=== PATIENT | female | born 1940 | race Caucasian/White ===

== ENCOUNTER 2023-12-24 10:22 | Inpatient (IN) ==
--- NOTE | 2023-12-24 11:26 | CT Scan Report ---
CT OF THE CERVICAL SPINE WITHOUT CONTRAST CLINICAL HISTORY: Fall. COMPARISON STUDY: No previous studies for comparison. TECHNIQUE: Helical axial images of the cervical spine were obtained without IV contrast. Sagittal a nd coronal reconstructions were viewed. Automated exposure control was utilized for the study. A do se lowering technique was utilized adhering to the principles of ALARA. FINDINGS: This exam is moderately compromised by motion artifact Alignment of the cervical spine is a natomic. Vertebral body heights are maintained. No acute cervical spine fracture or subluxation is pr esent. There is no prevertebral edema. Facet joints are intact. There is moderate multilevel facet ar throsis and disc space narrowing and osteophytosis within cervical spine. Right lobe thyroid goiter is incidentally noted. IMPRESSION: No acute cervical spine fracture or subluxation. Exam moderately compromised by motion ar tifact. ACT 112: Negative or not required by law. Electronically signed by: Ced Wills M.D. 12/24/2023 11:25 AM
--- NOTE | 2023-12-24 11:29 | CT Scan Report ---
CT SCAN OF THE BRAIN WITHOUT IV CONTRAST CLINICAL HISTORY: Fall. COMPARISON STUDY: No priors. TECHNIQUE: Unenhanced axial CT scan of the brain is performed from the vertex to the skull base. A do se lowering technique was utilized adhering to the principles of ALARA. FINDINGS: Brain parenchyma: There is age-related involutional change noting mild subcortical and periventricula r microangiopathic disease. There is no hemorrhage, mass effect, or evidence of acute territorial isc hemia by CT criteria. Brewster-white matter differentiation is preserved. No extra-axial fluid collection is seen. Ventricles, sulci, cisterns: Prominent secondary to involutional change. Intracranial vasculature: There is atherosclerotic calcification of the cavernous carotid arteries. Calvarium: Unremarkable. Soft tissues: There is a 7 mm nodule in the left parotid gland. Sinuses and mastoids: The visualized paranasal sinuses are clear. The mastoid air cells are well pneu matized. Orbits: The bony orbits are grossly intact. There are bilateral ocular lens implants. IMPRESSION: There is no hemorrhage, mass effect, or evidence of acute territorial ischemia by CT diego sparks. ACT 112: Negative or not required by law. Electronically signed by: Isaias Eckert M.D. 12/24/2023 11:27 AM
--- NOTE | 2023-12-24 11:59 | XRay Report ---
XR hand LT min 3V routine CLINICAL HISTORY: fall, left hand pain TECHNIQUE: 3 views of the left hand were obtained. Comparison: None available at the time of this dictation. FINDINGS: Postsurgical changes of wrist fixation hardware is seen. Old fracture of the ulnar styloid noted. The re is no evidence of an acute fracture. Degenerative changes are seen most prominently in the third d igit proximal interphalangeal joint. No soft tissue abnormality is seen. IMPRESSION: Degenerative changes are seen without evidence of acute abnormality. ACT 112: Negative or not required by law. Electronically signed by: Cristino Kapadia M.D. 12/24/2023 11:57 AM
--- NOTE | 2023-12-24 12:12 | XRay Report ---
XR hip LT 2V w pelvis CLINICAL HISTORY: fall, left hip pain COMPARISON: None FINDINGS: Postoperative findings within the lumbosacral spine are incidentally noted. The sacroiliac joints and symphysis pubis are intact. There are no fractures within the pelvis or hips. IMPRESSION: No fractures within the pelvis or hips. ACT 112: Negative or not required by law. Electronically signed by: Ced Wills M.D. 12/24/2023 12:11 PM
--- NOTE | 2023-12-24 13:29 | Emergency Department Note ---
ED Visit Note I was consulted by the Advanced Practice Provider, Griselda Montoya NP. I personally made/approved the management plan and take responsibility for the patient management. I performed a substantive portion of the visit. This includes the aspects of: -MDM -I independently interpreted the following studies: Head CT: A noncontrast CT scan of the head was performed and was negative for tumor, fracture, intracranial hemorrhage, or other acute pathology. .
[2023-12-24 14:15] LABS: Basophils # (auto) 0.06 K/uL (0.00-0.20); Basophils % (auto) 0.7 %; Eosinophils # (auto) 0.57 K/uL (0.00-0.50); Eosinophils % (auto) 6.6 %; Hemoglobin 13.6 g/dl (12.0-16.0); Immature Granulocytes # (auto) 0.05 K/uL (0.01-0.20); Immature Granulocytes % (auto) 0.6 %; Lymphocytes % (auto) 16.2 %; Mean Corpuscular Hemoglobin 29.6 pg (25.0-34.0); Mean Corpuscular Hgb Conc 30.9 g/dL (32.0-36.0); Mean Corpuscular Volume 95.9 fL (80.0-100.0); Monocytes # (auto) 0.64 K/uL (0.11-0.59); Monocytes % (auto) 7.4 %; Neutrophils % (auto) 68.5 %; Platelet Count 299 K/uL (130-400); RDW Coefficient of Variation 13.7 % (11.5-14.5); RDW Standard Deviation 48.7 fL (36.4-46.3); Red Blood Count 4.59 M/uL (4.20-5.40); White Blood Count 8.62 K/ul (4.8-10.8)
[2023-12-24 14:36] LABS: Albumin Globulin Ratio 1.6 (0.9-2); Albumin Level 3.9 gm/dl (3.4-5.0); BUN Creatinine Ratio 20.8 (10-20); Bilirubin,Total 0.4 mg/dl (0.2-1.0); Calcium 9.9 mg/dl (8.6-10.3); Creatinine Clr Calc Pharmacy 26.9 ml/min; Est GFR (African American) 46.1 ml/min; Est GFR (Non-African American) 39.7 ml/min; Globulin 2.5 gm/dl (2.5-4.0); Potassium 4.4 mmol/L (3.5-5.1); Total Protein 6.4 gm/dl (6.0-8.3)
--- NOTE | 2023-12-24 15:17 | History & Physical Report ---
Date of Service December 24, 2023 Assessment & Plan (1) New onset a-fib: (2) CAD (coronary artery disease): (3) Depression: (4) HTN (hypertension): (5) HLD (hyperlipidemia): (6) Bipolar 2 disorder: Plan Ms. Clark is an 83 year old female that presents to the [facility] after experiencing a ground level fall that occurred today at [facility]. She has been in rate controlled atrial fibrillation since she has been here and does not have a history of atrial fibrillation. She has complaints of being generally weak and lethargic. Unsure if patient had lightheadedness or dizziness prior to her fall. Patient is not a great historian. I s/w daughter Bianca at [phone] who is out of state working and the last time she saw her during the last week of October 2023. Per daughter she has had issues in the past with her heart rate being low, but has never been diagnosed with atrial fibrillation. She has a PMH that includes CAD s/p stent placement x2 done at [facility] in [place] in 2007, CVA, Lewy Body dementia, HTN, hypothyroidism. Lengthy discussion held with patients daughter about benefits vs risks of being on anticoagulation and she has opted to continue with treatment with a Heparin infusion. Her CHADs VASc is a 7. At baseline, she is able to get dressed with assistance and is able to independently feed herself but requires all of her needs to be anticipated and met. Patient will be admitted for further evaluation and management of her new onset atrial fibrillation and fall/generalized weakness. We will obtain an ECHO, TSH, UA, Heparin gtt, Cards consultation, PT/OT and case management consult to assist with placement at SNF. New onset atrial fibrillation: weakness: fall: acute CHADs vasc [address] negative Hip/Pelvis X-ray negative Troponin 14--> 17.7; repeat @ 2200 Mg+ 2.2, TSH 2.482 ECG irregular; AF ECHO ordered No leukocytosis UA pending Administer NSS @ 80mL/hour x 2 bags and reassess Heparin gtt standard no bolus ordered PT/OT ordered Bradycardia: Chronic Per daughter she has had bradycardia (50's) since her AMI in 2007. Appears pt was on Metoprolol at one point, but not on current med list Cards consult ECHO ordered Orthostatic BP ordered [place]: Acute serum creatinine 1.25; unsure of baseline fluid challenge and recheck BMP in AM CAD: Chronic AMI s/p stent placement x1 in 2007 at [facility] Not on any anticoagulation Takes baby ASA; continue Lewy Body Dementia: Chronic Takes Sinemet; continue Takes donepezil;continue Takes Seroquel; continue FAST score: up to and including all of 6 Some per daughter HTN: Chronic Takes losartan;continue HLD: Chronic Takes Bipolar Disorder: Chronic Takes [place]; continue check lithium levels Takes duloxetine;continue Hypothyroidism: Chronic Takes levothyroxine;continue TSH today in ED 2.482 OAB: Chronic Takes oxybutynin;cont Disposition: PCP: Dr. Gonzalez Code Status: Full Code VTE Prophylaxis: Heparin gtt I spent a total of 87 minutes coordinating, documenting, and providing care for this patient excluding time spent in the performance of separately billed services. All of the aforementioned completed while collaborating with the assigned attending physician for a full treatment plan. Please see their addendum for further details. History of Present Illness Chief Complaint: ground level fall Primary Care Provider: Griselda Gonzalez Ms. Clark is an 83 year old female that presents to the [facility] after experiencing a ground level fall that occurred today at [facility]. She has been in atrial fibrillation since she has been here and does not have a history of atrial fibrillation. She has complaints of being generally weak and lethargic. Unsure if patient had lightheadedness or dizziness prior to her fall. Patient is not a great historian. I spoke with patients daughter on the phone; Bianca at [phone] who states that she is out of state working and the last time she saw her during the last week of October 2023. She has been at [facility] for several years. Area office of aging suggested SNF more recently but daughter has not had success in moving forward with placement. Per daughter she has had issues in the past with her heart rate being low, but has never been diagnosed with atrial fibrillation. She has a PMH that includes CAD s/p stent placement x2 done at [facility] in [place] in 2007, CVA, Lewy Body dementia, HTN, hypothyroidism. Discussed the patient risk factors of heart attack and stroke without being on blood thinning medications. Discussed risk of someone with dementia being on anticoagulation falling and having a bleed. Lengthy discussion held with patients daughter about benefits vs risks of being on anticoagulation and she has opted to continue with treatment with a Heparin infusion. Her CHADs VASc is a 7. At baseline, she is able to get dressed with assistance and is able to independently feed herself but requires all of her needs to be anticipated and met. Patient will be admitted for further evaluation and management of her new onset atrial fibrillation and fall/generalized weakness. We will obtain an ECHO, TSH, UA, Heparin gtt, Cards consultation, PT/OT and case management consult to assist with placement at SNF. Please see A/P for more details. Allergies Allergy/AdvReac Type Severity Reaction Status Date / Time ampicillin Allergy Intermediate HIVES Verified 09/26/15 10:09 niacin Allergy Intermediate HIVES Verified 09/26/15 10:09 Penicillins Allergy Intermediate RASH Verified 09/26/15 10:09 procainamide Allergy Intermediate RASH Verified 09/26/15 10:09 codeine AdvReac Intermediate PROJECTILE Verified 09/26/15 10:09 VOMITING alendronate sodium AdvReac Mild NAUSEA AND Verified 09/26/15 10:09 VOMITING celecoxib AdvReac Mild NAUSEA AND Verified 09/26/15 10:09 VOMITING morphine AdvReac Mild VOMITING Verified 09/26/15 10:09 Home Medications Medication Instructions Recorded Confirmed Type ASPIRIN (ASPIRIN EC) 81 mg PO QAM ##0 09/10/15 12/24/23 History Acetaminophen Tab (TYLENOL) 650 mg PO BID #0 tabs 09/10/15 12/24/23 History Calcium/Vitamin D (Os-Phil 500 Plus 1 tab PO QAM #0 tabs 09/10/15 12/24/23 History D) Esomeprazole Magnesium (Nexium) 40 mg PO QAM #0 caps 09/10/15 12/24/23 History MECLIZINE HCL 2 tab PO TID PRN Dizziness or 09/10/15 12/24/23 History Vertigo 10 days #60 tabs Nitroglycerin (Nitrostat) 0.4 mg UT PRN #0 BTLS 09/10/15 12/24/23 History Ropinirole (Requip) 0.25 mg PO TID #0 tabs 09/10/15 12/24/23 History Sertraline (Zoloft) 25 mg PO HS #0 tabs 09/10/15 12/24/23 History atorvastatin 80 mg tablet 80 mg PO HS #0 tabs 09/10/15 12/24/23 History carbidopa 25 mg-levodopa 100 mg 1 tab PO TID #0 tabs 09/10/15 12/24/23 History tablet donepezil 5 mg tablet 5 mg PO QAM #0 tabs 09/10/15 12/24/23 History levothyroxine 75 mcg tablet 1 tab PO QAM 90 days #90 tabs 09/10/15 12/24/23 History Ferrous Sulfate 325 mg PO BIDM 30 days #0 tabs 10/08/15 12/24/23 Rx albuterol sulfate 90 mcg/actuation 1 puff inhalation DIRECTED PRN 12/24/23 12/24/23 History aerosol inhaler (Ventolin HFA) Other diclofenac sodium 1 % topical gel 1 ea topical DIRECTED 12/24/23 12/24/23 History duloxetine 60 mg capsule,delayed 60 mg PO DAILY 12/24/23 12/24/23 History release famotidine 20 mg tablet 20 mg PO DAILY 12/24/23 12/24/23 History gabapentin 300 mg capsule 300 mg PO DIRECTED 12/24/23 12/24/23 History lithium carbonate 300 mg 300 mg PO DAILY 12/24/23 12/24/23 History tablet,extended release losartan 25 mg tablet 25 mg PO DAILY 12/24/23 12/24/23 History oxybutynin chloride 5 mg tablet 5 mg PO BID 12/24/23 12/24/23 History quetiapine 200 mg tablet 200 mg PO DIRECTED 12/24/23 12/24/23 History Past Med/Surg History Problem List New onset a-fib (Acute) Hypothyroidism (Chronic) Depression (Chronic) GERD (gastroesophageal reflux disease) (Chronic) Parkinsons disease (Chronic) CAD (coronary artery disease) (Chronic) SANJEEV (obstructive sleep apnea) (Chronic) HTN (hypertension) (Chronic) HLD (hyperlipidemia) (Chronic) Bipolar 2 disorder (Chronic) History of PTCA (Chronic) H/O colonoscopy (Chronic) H/O knee surgery (Chronic) History of carpal tunnel surgery (Chronic) H/O: (Chronic) History of thyroidectomy, subtotal (Chronic) H/O esophagogastroduodenoscopy (Chronic) Medical History AMI (acute myocardial infarction) Lumbar stenosis with neurogenic claudication Surgical History History of cataract surgery Stented coronary artery Social History Smoking Status: Never smoker Hx Alcohol Use: No Hx Substance Use: No Preferred Language: Bhutanese Communication Ability: Effective 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 Hong's addendum for physical examination findings Results & Data Results & Data Vital Signs (Past 12 Hours) Vital Signs Temp Pulse Pulse Resp BP BP Pulse Ox 12/24/23 14:18 67 12/24/23 14:00 50 L 20 145/72 H 97 12/24/23 12:29 16 94 12/24/23 10:45 54 L 16 96 12/24/23 10:29 36.9 C 54 L 18 169/62 H 96 12/24/23 10:27 61 O2 Del Method 12/24/23 14:18 12/24/23 14:00 Room Air 12/24/23 12:29 Room Air 12/24/23 10:45 Room Air 12/24/23 10:29 Room Air 12/24/23 10:27 Laboratory Results Short CBC 12/24/23 Range/Units 14:00 WBC 8.62 (4.8-10.8) K/ul Hgb 13.6 (12.0-16.0) g/dl Hct 44.0 (37.0-47.0) % Plt Count 299 (130-400) K/uL BMP 12/24/23 14:00 Sodium 138 Potassium 4.4 Chloride 106 Carbon Dioxide 26 BUN 26 H Creatinine 1.25 H Glucose 92 Calcium 9.9 Liver Function 12/24/23 Range/Units 14:00 Total Bilirubin 0.4 (0.2-1.0) mg/dl AST 14 (13-39) U/L ALT 3 L (7-52) U/L Alkaline Phosphatase 119 H (34-104) U/L Albumin 3.9 (3.4-5.0) gm/dl Diagnostic Findings Cervical Spine CT 12/24/23 10:45 CT OF THE CERVICAL SPINE WITHOUT CONTRAST CLINICAL HISTORY: Fall. COMPARISON STUDY: No previous studies for comparison. TECHNIQUE: Helical axial images of the cervical spine were obtained without IV contrast. Sagittal and coronal reconstructions were viewed. Automated exposure control was utilized for the study. A dose lowering technique was utilized adhering to the principles of ALARA. FINDINGS: This exam is moderately compromised by motion artifact Alignment of the cervical spine is anatomic. Vertebral body heights are maintained. No acute cervical spine fracture or subluxation is present. There is no prevertebral edema. Facet joints are intact. There is moderate multilevel facet arthrosis and disc space narrowing and osteophytosis within cervical spine. Right lobe thyroid goiter is incidentally noted. IMPRESSION: No acute cervical spine fracture or subluxation. Exam moderately compromised by motion artifact. ACT 112: Negative or not required by law. Electronically signed by: Ced Wills M.D. 12/24/2023 11:25 AM Hand X-Ray 12/24/23 10:45 XR hand LT min 3V routine CLINICAL HISTORY: fall, left hand pain TECHNIQUE: 3 views of the left hand were obtained. Comparison: None available at the time of this dictation. FINDINGS: Postsurgical changes of wrist fixation hardware is seen. Old fracture of the ulnar styloid noted. There is no evidence of an acute fracture. Degenerative changes are seen most prominently in the third digit proximal interphalangeal joint. No soft tissue abnormality is seen. IMPRESSION: Degenerative changes are seen without evidence of acute abnormality. ACT 112: Negative or not required by law. Electronically signed by: Cristino Kapadia M.D. 12/24/2023 11:[address] 12/24/23 10:45 CT SCAN OF THE BRAIN WITHOUT IV CONTRAST CLINICAL HISTORY: Fall. COMPARISON STUDY: No priors. TECHNIQUE: Unenhanced axial CT scan of the brain is performed from the vertex to the skull base. A dose lowering technique was utilized adhering to the principles of ALARA. FINDINGS: Brain parenchyma: There is age-related involutional change noting mild subcortical and periventricular microangiopathic disease. There is no hemorrhage, mass effect, or evidence of acute territorial ischemia by CT criteria. Brewster-white matter differentiation is preserved. No extra-axial fluid collection is seen. Ventricles, sulci, cisterns: Prominent secondary to involutional change. Intracranial vasculature: There is atherosclerotic calcification of the cavernous carotid arteries. Calvarium: Unremarkable. Soft tissues: There is a 7 mm nodule in the left parotid gland. Sinuses and mastoids: The visualized paranasal sinuses are clear. The mastoid air cells are well pneumatized. Orbits: The bony orbits are grossly intact. There are bilateral ocular lens implants. IMPRESSION: There is no hemorrhage, mass effect, or evidence of acute territorial ischemia by CT criteria. ACT 112: Negative or not required by law. Electronically signed by: Isaias Eckert M.D. 12/24/2023 11:27 AM Hip/Pelvis X-Ray 12/24/23 10:45 XR hip LT 2V w pelvis CLINICAL HISTORY: fall, left hip pain COMPARISON: None FINDINGS: Postoperative findings within the lumbosacral spine are incidentally noted. The sacroiliac joints and symphysis pubis are intact. There are no fractures within the pelvis or hips. IMPRESSION: No fractures within the pelvis or hips. ACT 112: Negative or not required by law. Electronically signed by: Ced Wills M.D. 12/24/2023 12:11 PM Code Status & VTE Plan Code Status Full Code in the event of cardiac or respiratory arrest VTE Prophylaxis Plan VTE Prophylaxis will be ordered: Yes Supervising Physician Co-Signing Physician Notes Patient is an 83-year-old female with history of Parkinson's disease, SANJEEV, coronary artery disease, dementia, hypothyroidism and other medical problems presents with history of generalized weakness, lethargy, and an unwitnessed fall at personal care facility. Patient is a poor historian and most of the history is obtained from ER staff, old records and patient's family. Patient was noted to be in A-fib while in ED. Please review HPI for complete details of presentation. I personally reviewed blood work and imaging studies. Imaging studies showed no signs of fractures. EKG showed A-fib, left axis deviation, nonspecific ST-T wave changes. Also incidentally found to have left parotid nodule. Physical Exam: Vitals signs as noted above General Appearance: Obese, no apparent distress Head: normocephalic, Atraumatic Eyes: normal inspection, EOMI Neck: supple, Trachea midline Respiratory/Chest: Normal breath sounds, CTA, No accessory muscle use Cardiovascular: Irregularly irregular, No murmur Abdomen/GI:Soft, Non tender, Bowel sounds present Extremities/Musculoskeletal:normal inspection, no edema , left hand minimal swelling, bruises Neurologic/Psych:AAOX1, grossly no focal neurological deficits,+ dementia Skin: normal color, warm New onset A-fib Unwitnessed fall Generalized weakness Left parotid nodule Parkinson's disease Dementia Normal TSH Monitor and replete electrolytes as needed Fall precautions, PT OT Started on IV heparin for now--likely poor candidate for long-term anticoagulation Cardiology consulted Check resting echo Given rate control, will not start on any beta-blockers Urinalysis currently pending. I personally interviewed and examined at bedside. Patient's care is coordinated with Ilene FERNANDEZ. I have reviewed the advanced practitioner's documentation, and I agree with plan of care. Please refer to the documentation above for details of patient's presentation and for discussion of other issues. I spent a total [id number] coordinating, documenting, and providing care for this patient excluding time spent in the performance of separately billed services.
[2023-12-24 15:43] LABS: Magnesium 2.2 mg/dl (1.7-2.4)
[2023-12-24 15:58] LABS: Thyroid Stimulating Hormone 2.482 uIu/ml (0.300-4.500)
[2023-12-24] MEDS: SODIUM CHLORIDE 0.9% 1,000 ML IV SCH (16:48)
[2023-12-24] MEDS: HEPARIN SODIUM/DEXTROSE 25,000 UNITS/500 ML BAG IV SCH (16:53)
[2023-12-24] MEDS: Heparin IV Adult Wt-Based Standard *NO* INITIAL Bolus Protocol IV STA (16:56)
[2023-12-24 17:17] LABS: Partial Thromboplastin Time 27 Seconds (21-31); Prothrombin Time 10.5 Seconds (9.0-12.0)
--- NOTE | 2023-12-24 17:28 | Emergency Department Note ---
ED Provider Note History of Present Illness Chief Complaint: Fall Stated Complaint: FALL, L HAND & L HIP PAIN Time Seen by Provider: 12/24/23 10:32 Source: patient Mode of arrival: EMS Patient is an 83-year-old female that presents to the emergency department via EMS from [facility] with complaints of left hand and hip pain. Patient states that she had a ground-level fall yesterday but is unsure if she felt dizzy or if it was a mechanical fall. Patient does have a history of Alzheimer's and Parkinson's disease. Patient states that she is unsure if she hit her head but she did hit her left hand and her left hip. Patient is taking a daily aspirin but no other blood thinners. Home Medications Medication Instructions Recorded Confirmed Type ASPIRIN (ASPIRIN EC) 81 mg PO QAM ##0 09/10/15 12/24/23 History Acetaminophen Tab (TYLENOL) 650 mg PO BID #0 tabs 09/10/15 12/24/23 History Calcium/Vitamin D (Os-Phil 500 Plus 1 tab PO QAM #0 tabs 09/10/15 12/24/23 History D) Esomeprazole Magnesium (Nexium) 40 mg PO QAM #0 caps 09/10/15 12/24/23 History MECLIZINE HCL 2 tab PO TID PRN Dizziness or 09/10/15 12/24/23 History Vertigo 10 days #60 tabs Nitroglycerin (Nitrostat) 0.4 mg UT PRN #0 BTLS 09/10/15 12/24/23 History Ropinirole (Requip) 0.25 mg PO TID #0 tabs 09/10/15 12/24/23 History Sertraline (Zoloft) 25 mg PO HS #0 tabs 09/10/15 12/24/23 History atorvastatin 80 mg tablet 80 mg PO HS #0 tabs 09/10/15 12/24/23 History carbidopa 25 mg-levodopa 100 mg 1 tab PO TID #0 tabs 09/10/15 12/24/23 History tablet donepezil 5 mg tablet 5 mg PO QAM #0 tabs 09/10/15 12/24/23 History levothyroxine 75 mcg tablet 1 tab PO QAM 90 days #90 tabs 09/10/15 12/24/23 History Ferrous Sulfate 325 mg PO BIDM 30 days #0 tabs 10/08/15 12/24/23 Rx albuterol sulfate 90 mcg/actuation 1 puff inhalation DIRECTED PRN 12/24/23 12/24/23 History aerosol inhaler (Ventolin HFA) Other diclofenac sodium 1 % topical gel 1 ea topical DIRECTED 12/24/23 12/24/23 History duloxetine 60 mg capsule,delayed 60 mg PO DAILY 12/24/23 12/24/23 History release famotidine 20 mg tablet 20 mg PO DAILY 12/24/23 12/24/23 History gabapentin 300 mg capsule 300 mg PO DIRECTED 12/24/23 12/24/23 History lithium carbonate 300 mg 300 mg PO DAILY 12/24/23 12/24/23 History tablet,extended release losartan 25 mg tablet 25 mg PO DAILY 12/24/23 12/24/23 History oxybutynin chloride 5 mg tablet 5 mg PO BID 12/24/23 12/24/23 History quetiapine 200 mg tablet 200 mg PO DIRECTED 12/24/23 12/24/23 History Allergies Allergy/AdvReac Type Severity Reaction Status Date / Time ampicillin Allergy Intermediate HIVES Verified 09/26/15 10:09 niacin Allergy Intermediate HIVES Verified 09/26/15 10:09 Penicillins Allergy Intermediate RASH Verified 09/26/15 10:09 procainamide Allergy Intermediate RASH Verified 09/26/15 10:09 codeine AdvReac Intermediate PROJECTILE Verified 09/26/15 10:09 VOMITING alendronate sodium AdvReac Mild NAUSEA AND Verified 09/26/15 10:09 VOMITING celecoxib AdvReac Mild NAUSEA AND Verified 09/26/15 10:09 VOMITING morphine AdvReac Mild VOMITING Verified 09/26/15 10:09 Past Med/Surg History Problem List New onset a-fib (Acute) Hypothyroidism (Chronic) Depression (Chronic) GERD (gastroesophageal reflux disease) (Chronic) Parkinsons disease (Chronic) CAD (coronary artery disease) (Chronic) SANJEEV (obstructive sleep apnea) (Chronic) HTN (hypertension) (Chronic) HLD (hyperlipidemia) (Chronic) Bipolar 2 disorder (Chronic) History of PTCA (Chronic) H/O colonoscopy (Chronic) H/O knee surgery (Chronic) History of carpal tunnel surgery (Chronic) H/O: (Chronic) History of thyroidectomy, subtotal (Chronic) H/O esophagogastroduodenoscopy (Chronic) Medical History AMI (acute myocardial infarction) Lumbar stenosis with neurogenic claudication Surgical History History of cataract surgery Stented coronary artery Social History Smoking Status: Never smoker Feels Safe at Home: Yes Physical Exam Vital Signs Vital Signs - 24 hr 12/24/23 10:27 12/24/23 10:29 12/24/23 10:45 Temperature 36.9 C Temperature Source Oral Pulse Rate 61 54 L 54 L Pulse Rate [Apical] Pulse Rhythm [Apical] Pulse Strength [Apical] Respiratory Rate 18 16 Respiratory Effort / Characteristics Non-Labored Spontaneous Respiratory Depth Normal Respiratory Pattern Blood Pressure 169/62 H Blood Pressure [Right Arm] Blood Pressure Mean 97 Blood Pressure Mean [Right Arm] Blood Pressure Position Sitting Blood Pressure Position [Right Arm] Pulse Oximetry 96 96 Oxygen Delivery Method Room Air Room Air Sepsis Recent Fever Within 48 Hours No Sepsis New/Unexplained Change in Mental Status No Sepsis Action Taken by Nursing No Action Required 12/24/23 12:29 12/24/23 14:00 12/24/23 14:18 Temperature Temperature Source Pulse Rate 67 Pulse Rate [Apical] 50 L Pulse Rhythm [Apical] Pulse Strength [Apical] Respiratory Rate 16 20 Respiratory Effort / Characteristics Non-Labored Spontaneous Spontaneous Respiratory Depth Normal Respiratory Pattern Blood Pressure Blood Pressure [Right Arm] 145/72 H Blood Pressure Mean Blood Pressure Mean [Right Arm] 96 Blood Pressure Position Blood Pressure Position [Right Arm] Lying Pulse Oximetry 94 97 Oxygen Delivery Method Room Air Room Air Sepsis Recent Fever Within 48 Hours Sepsis New/Unexplained Change in Mental Status Sepsis Action Taken by Nursing 12/24/23 15:15 Temperature 36.7 C Temperature Source Oral Pulse Rate Pulse Rate [Apical] 53 L Pulse Rhythm [Apical] Regular Pulse Strength [Apical] Normal Respiratory Rate 18 Respiratory Effort / Characteristics Non-Labored Spontaneous Respiratory Depth Normal Respiratory Pattern Regular Blood Pressure Blood Pressure [Right Arm] Blood Pressure Mean Blood Pressure Mean [Right Arm] Blood Pressure Position Blood Pressure Position [Right Arm] Pulse Oximetry 97 Oxygen Delivery Method Room Air Sepsis Recent Fever Within 48 Hours Sepsis New/Unexplained Change in Mental Status Sepsis Action Taken by Nursing VITAL SIGNS - Vital signs and nursing notes were reviewed. GENERAL -83-year-old female appearing their stated age, who is in no acute distress. Communicates well with provider and answers questions appropriately. Patient does have a hard time hearing and he have to speak up to have conversation with her, but she does answer questions appropriately when she can hear. HEAD - Normocephalic, Atraumatic. No Haywood's Sign or Raccoon's Eyes. No depressed skull fractures palpable. EYES - PERRL with EOMI bilaterally. Sclera anicteric. Conjunctiva pink and moist with no injection noted. EARS - No deformities of external structures noted on gross examination bilaterally. NOSE - Midline and without cyanosis. No epistaxis or purulent drainage noted. MOUTH/OROPHARYNX - Without perioral cyanosis. Buccal mucosa pink and moist and without leukoplakia. NECK - Neck with FROM. Supple to palpation. No lymphadenopathy noted. LUNGS - Chest wall symmetric without accessory muscle use, intercostals retractions, or central cyanosis. Normal vesicular breath sounds CTA B/L. No wheezes, rales, or rhonchi appreciated. CARDIAC - RRR with S1/S2. No murmur, rubs, or gallops appreciated. EXTREMITIES - No edema present. +5/5 strength noted in UE/LE bilaterally. Patient has swelling noted to her left hand around her first second and third digits. Mild ecchymosis noted as well. Patient has no ecchymosis or edema noted to the left hip area, though patient complains of pain there. NEUROLOGIC -Sensory intact to light touch throughout. PSYCH - A&Ox3 and cooperates fully with examiner. Pt is very pleasant and interacts well with examiner Course Administered Medications Heparin Sodium/Dextrose (Heparin Sodium/Dextrose) 25,000 units in 500 mls @ 20 mls/hr IV .Q24H [facility]; Protocol Stop: 01/23/24 16:29 Last Admin: 12/24/23 16:53 Dose: 1,000 units/hr, 20 mls/hr Documented By: JOHN Co-signed By: MELINDA Sodium Chloride (Nss) 1,000 mls @ 80 mls/hr IV .[id number] [facility] Stop: 12/25/23 04:59 Last Admin: 12/24/23 16:48 Dose: 80 mls/hr Documented By: JOHN Discontinued Medications Heparin Sodium/Dextrose (Heparin Iv Adult Wt-Based Standard *No* Initial Bolus Protocol) 1 each IV ONE STA; Protocol Stop: 12/24/23 16:02 Last Admin: 12/24/23 16:56 Dose: Not Given Documented By: JOHN Medical Decision Making Differential Diagnosis Hand fracture, dislocation, hip fracture, hip dislocation, acute intracranial bleed, skull fracture, hematoma, fall, vertigo, A-fib, among others Medical Records Attestation: I reviewed the patient's medical records. Home Medications was personally reviewed by me Laboratory Data Attestation: I reviewed the patient's lab results. 12/24/23 14:00 12/24/23 14:00 Lab Results 12/24/23 12/24/23 Range/Units 14:00 14:07 WBC 8.62 (4.8-10.8) K/ul RBC 4.59 (4.20-5.40) M/uL Hgb 13.6 (12.0-16.0) g/dl Hct 44.0 (37.0-47.0) % MCV 95.9 (80.0-100.0) fL MCH 29.6 (25.0-34.0) pg MCHC 30.9 L (32.0-36.0) g/dL RDW Std Deviation 48.7 H (36.4-46.3) fL RDW Coeff of Atiya 13.7 (11.5-14.5) % Plt Count 299 (130-400) K/uL MPV 10.0 (9.4-12.4) fL Immature Gran % (Auto) 0.6 % Neut % (Auto) 68.5 % Lymph % (Auto) 16.2 % [place] % (Auto) 7.4 % Eos % (Auto) 6.6 % Baso % (Auto) 0.7 % Neut # (Auto) 5.90 (1.40-6.50) K/uL Lymph # (Auto) 1.40 (1.20-3.40) K/uL [place] # (Auto) 0.64 H (0.11-0.59) K/uL Eos # (Auto) 0.57 H (0.00-0.50) K/uL Baso # (Auto) 0.06 (0.00-0.20) K/uL Immature Gran # (Auto) 0.05 (0.01-0.20) K/uL PT 10.5 (9.0-12.0) Seconds INR 1.0 (0.9-1.1) APTT 27 (21-31) Seconds PTT Ratio 1.0 Sodium 138 (136-145) mmol/L Potassium 4.4 (3.5-5.1) mmol/L Chloride 106 (98-107) mmol/L Carbon Dioxide 26 (21-32) mmol/L Anion Gap 6 (3-11) BUN 26 H (6-23) mg/dl Creatinine 1.25 H (0.6-1.2) mg/dl Est Cr Clr Drug Dosing 26.9 ml/min Est GFR ( Amer) 46.1 ml/min Est GFR (Non-Af Amer) 39.7 ml/min BUN/Creatinine Ratio 20.8 H (10-20) Glucose 92 (70-99(Fasting)) mg/dl Calcium 9.9 (8.6-10.3) mg/dl Magnesium 2.2 (1.7-2.4) mg/dl Total Bilirubin 0.4 (0.2-1.0) mg/dl AST 14 (13-39) U/L ALT 3 L (7-52) U/L Alkaline Phosphatase 119 H (34-104) U/L Troponin I High Sens 14.0 (0-14) pg/ml Total Protein 6.4 (6.0-8.3) gm/dl Albumin 3.9 (3.4-5.0) gm/dl Globulin 2.5 (2.5-4.0) gm/dl Albumin/Globulin Ratio 1.6 (0.9-2) TSH 2.482 (0.300-4.500) uIu/ml SARS-CoV-2, RNA, NAAT NEGATIVE (NEGATIVE) Imaging Data Radiologist's Impression: Cervical Spine CT 12/24/23 10:45 CT OF THE CERVICAL SPINE WITHOUT CONTRAST CLINICAL HISTORY: Fall. COMPARISON STUDY: No previous studies for comparison. TECHNIQUE: Helical axial images of the cervical spine were obtained without IV contrast. Sagittal and coronal reconstructions were viewed. Automated exposure control was utilized for the study. A dose lowering technique was utilized adhering to the principles of ALARA. FINDINGS: This exam is moderately compromised by motion artifact Alignment of the cervical spine is anatomic. Vertebral body heights are maintained. No acute cervical spine fracture or subluxation is present. There is no prevertebral edema. Facet joints are intact. There is moderate multilevel facet arthrosis and disc space narrowing and osteophytosis within cervical spine. Right lobe thyroid goiter is incidentally noted. IMPRESSION: No acute cervical spine fracture or subluxation. Exam moderately compromised by motion artifact. ACT 112: Negative or not required by law. Electronically signed by: Ced Wills M.D. 12/24/2023 11:25 AM Hand X-Ray 12/24/23 10:45 XR hand LT min 3V routine CLINICAL HISTORY: fall, left hand pain TECHNIQUE: 3 views of the left hand were obtained. Comparison: None available at the time of this dictation. FINDINGS: Postsurgical changes of wrist fixation hardware is seen. Old fracture of the ulnar styloid noted. There is no evidence of an acute fracture. Degenerative changes are seen most prominently in the third digit proximal interphalangeal joint. No soft tissue abnormality is seen. IMPRESSION: Degenerative changes are seen without evidence of acute abnormality. ACT 112: Negative or not required by law. Electronically signed by: Cristino Kapadia M.D. 12/24/2023 11:[address] 12/24/23 10:45 CT SCAN OF THE BRAIN WITHOUT IV CONTRAST CLINICAL HISTORY: Fall. COMPARISON STUDY: No priors. TECHNIQUE: Unenhanced axial CT scan of the brain is performed from the vertex to the skull base. A dose lowering technique was utilized adhering to the principles of ALARA. FINDINGS: Brain parenchyma: There is age-related involutional change noting mild subcortical and periventricular microangiopathic disease. There is no hemorrhage, mass effect, or evidence of acute territorial ischemia by CT criteria. Brewster-white matter differentiation is preserved. No extra-axial fluid collection is seen. Ventricles, sulci, cisterns: Prominent secondary to involutional change. Intracranial vasculature: There is atherosclerotic calcification of the cavernous carotid arteries. Calvarium: Unremarkable. Soft tissues: There is a 7 mm nodule in the left parotid gland. Sinuses and mastoids: The visualized paranasal sinuses are clear. The mastoid air cells are well pneumatized. Orbits: The bony orbits are grossly intact. There are bilateral ocular lens implants. IMPRESSION: There is no hemorrhage, mass effect, or evidence of acute territorial ischemia by CT criteria. ACT 112: Negative or not required by law. Electronically signed by: Isaias Eckert M.D. 12/24/2023 11:27 AM Hip/Pelvis X-Ray 12/24/23 10:45 XR hip LT 2V w pelvis CLINICAL HISTORY: fall, left hip pain COMPARISON: None FINDINGS: Postoperative findings within the lumbosacral spine are incidentally noted. The sacroiliac joints and symphysis pubis are intact. There are no fractures within the pelvis or hips. IMPRESSION: No fractures within the pelvis or hips. ACT 112: Negative or not required by law. Electronically signed by: Ced Wills M.D. 12/24/2023 12:11 PM MDM Narrative Patient is an 83-year-old female who presents to the emergency department with complaints of left hand and left hip pain after experiencing a ground-level fall yesterday. Patient presented to the emergency department via EMS from [facility]. Patient has a history of Alzheimer's as well as Parkinson's disease. Patient states that she is unsure if she tripped over something or if her fall was related to being dizzy. Patient states that she does not remember. Patient also states that she is not sure if she hit her head or not. Patient does take a daily aspirin but no other blood thinners are noted. Patient was evaluated by myself and findings were noted in the physical exam above. Patient was ordered IV placement and lab work as well as a CT of her head, CT of her C-spine, and x-rays of her left hand and left hip and pelvis. Patient's lab work returned unremarkable. Patient had no acute fractures or dislocations noted on her hand x-ray or her hip and pelvis x-ray. Patient CT scans were also interpreted by radiology to show no hemorrhage, mass effect, or evidence of acute ischemia on the brain CT as well as no acute abnormality on her CT of her C-spine. Patient did have an EKG completed in the department though that showed her to be in A-fib with a slow ventricular response. Patient does not have a history of A-fib. I spoke with the patient's daughter who is her POA and patient's daughter states that she does not have a history of A-fib and states that the patient has been feeling dizzy, lightheaded, and more fatigued recently. Patient does report feeling generally weak as well. Due to the patient's recent increased weakness, dizziness, and new onset A-fib, I reached out to the [facility] to admit the patient to [facility] Please refer to their documentation for further management of this patient. Impression New onset a-fib Discharge Plan Visit Data Chief Complaint: Fall Stated Complaint: FALL, L HAND & L HIP PAIN ED Provider: Lenny Dai ED Midlevel Provider: Griselda Montoya Discharge Problem: New onset a-fib Patient Disposition: Admitted As Inpatient Discharge Instructions Interventions: ED Discharge Assessment Last Done: 12/24/23 17:19
--- OUTSIDE RECORDS SUMMARY | 2023-12-24 17:42 | External Medical Summary | Summary of Care ---
Author Name Unknown Organization [facility] Address [address] [facility] [place] [address] Phone [phone] Care Team Providers Care Family Practice Physician Name Role Phone Moris Dodd PA-C Primary Care Provider [phone] Reason for Visit * Reason Onset Date Comments Medication Refill 09/14/2023 Encounter Details Date Type Department Care Team (Late st Contact Info) Description 09/14/2023 Refill Family Medicine [address] [place] [address] Gabriela Muniz MD [address] [place] [address] [place] [phone] Urge incontinence of urine Allergies Active Allergy Reactions Criticality Noted Date Comments Alendronic Acid 08/04/2013 Nausea, vomiting, also on celebrex and plavix Ampicillin Hives 09/19/2011 Celecoxib 08/04/2013 Nausea, vomiting while on plavix Codeine Other (Please comment) 09/19/2011 Projectile vomiting Morphine Other (Please comment) 09/19/2011 Vomiting Niacin Er Hives 09/19/2011 Penicillins 08/08/2002 rash Procainamide Rash 09/19/2011 Tramadol Nausea/vomiting High 03/27/2016 documented as of this encounter (statuses as of 09/14/2023) Medications Medication Sig Dispensed Refills Start Date End Date Status ASPIRIN 81 MG PO TABS daily Active nitroglycerin (NITROSTAT) 0.[address] 1 Tab under the tongue every 5 minutes as needed for Pain, Chest. For up to 3 doses in 15 minutes. 15 Tab 3 07/26/2014 Active docusate sodium (COLACE) 100 MG CapsuleIndications:C onstipation, unspecified constipation type TAKE 1 CAP BY MOUTH 2 TIMES A DAY. 60 Cap 11 10/22/2016 Active [place]-3 Fatty Acids (FISH OIL) 1200 MG CAPSIndications:1 capsule 2 times a day Take by mouth. Active Cholecalciferol (VITAMIN D) 2000 units Tablet Take 2,000 Units by mouth daily. Active saline (OCEAN) 0.65 % nasal spray OK for her to keep in her room to use as needed 30 mL 12 06/23/2018 Active Betamethasone Dipropionate 0.05 % ointmentIndications: Lichenification Apply 2x daily to area on scalp (or more if itchy instead of scratching) until improved/resolved 50 g 11/30/2019 Active Vitamin B-12 1000 MCG Oral TabletIndications:B1 2 deficiency Take 1 Tab by mouth every other day. 45 Tab 1 04/09/2020 Active Os-Phil Calcium + D3 500-200 MG-UNIT Oral Tablet (Calcium Carb-Cholecalciferol )Indications:Age-rel ated osteoporosis without current pathological fracture Take 1 Tab by mouth every other day. with breakfast 90 Tab 3 07/05/2020 Active Alum & Mag Hydroxide-Simeth 200-200-20 MG/5ML Oral SuspensionIndication s:Gastroesophageal reflux disease without esophagitis Take by mouth 30 mL as needed in the morning AND 30 mL as needed at noon AND 30 mL as needed in the evening AND 30 mL as needed before bedtime for Indigestion. 355 mL 2 05/10/2021 Active Ondansetron HCl 4 MG Oral Tablet Take by mouth 1 Tablet every 6 hours as needed for Nausea. 20 Tablet 06/17/2021 Active Premarin 0.625 MG/GM Vaginal Cream (Estrogens, Conjugated)Indicatio ns:Postmenopausal atrophic vaginitis Insert 1 gram into the vagina at bedtime nightly x 7 days then use 1 gram twice a week 42.5 g 5 07/11/2021 Active Polyethylene Glycol 3350 17 GM/SCOOP Oral Powder (MiraLax)Indications :Constipation, unspecified constipation type Take by mouth 17 g as needed for Constipation. Dissolve one heaping tablespoon in 8 ounces of water or juice. 116 g 5 07/22/2021 Active guaiFENesin ER 600 MG Oral Tablet Extended Release 12 Hour (Mucinex)Indications :Acute cough Take by mouth 1 Tablet 2 times a day as needed for Congestion. Take with plenty of water. Do not cut, crush or chew 40 Tablet 2 09/26/2021 Active Acetaminophen 500 MG Oral Tablet (Tylenol Extra Strength)Indications :1 pill 4 times a day as needed for pain Take by mouth 1 Tablet every 6 hours as needed for Pain, Mild. 100 Tablet 1 10/02/2021 Active Meclizine HCl 25 MG Oral Tablet (Antivert)Indication s:Vertigo Take by mouth 1 Tablet 2 times a day as needed for Dizziness. Take by mouth twice a day; she may have one additional tablet as needed for dizziness 90 Tablet 5 10/31/2021 Active Esomeprazole Magnesium 40 MG Oral Capsule Delayed ReleaseIndications:G astroesophageal reflux disease without esophagitis TAKE 1 CAPSULE BY MOUTH ONCE DAILY *DO NOT CRUSH OR CHEW* 90 Capsule 2 03/06/2022 Active Loratadine 10 MG Oral Tablet (Claritin) Take 1 Tablet by mouth every night at bedtime. 30 Tablet 5 03/18/2022 Active Losartan Potassium 25 MG Oral Tablet (Cozaar)Indications: HTN, goal below 140/90 Take 1 Tablet by mouth in the morning. 90 Tablet 2 03/13/2023 Active Diclofenac Sodium 1 % External Gel (Voltaren) APPLY 2 GRAM TOPICALLY TO AFFECTED AREA twice a day *MAX-DOSE 32GM TOTAL BODY* LOWER MAX-16GM/JOINT/DA Y* UPPER MAX-8GM/JOINT/DAY * *SELF ADMINISTER* 100 g 3 04/13/2023 Active Carbidopa-Levodopa 25-100 MG Oral Tablet (Sinemet)Indications :Secondary parkinsonism (HCC) TAKE 1 TABLET BY MOUTH THREE TIMES DAILY FOR PARKINSONS 90 Tablet 5 05/07/2023 Active [place] Carbonate ER 300 MG Oral Tablet Extended Release (Lithobid ER)Indications:Bipol ar 2 disorder, major depressive episode (HCC) TAKE 1 TABLET BY MOUTH AT BEDTIME NIGHTLY. FOR BIPOLAR DISORDER 30 Tablet 5 05/07/2023 Active Gabapentin 300 MG Oral Capsule (Neurontin)Indicatio ns:Lumbar radiculopathy,S/P laminectomy Take 1 Capsule by mouth in the morning and 1 Capsule at noon and 1 Capsule before bedtime. 90 Capsule 5 05/07/2023 Active oxyBUTYnin Chloride 5 MG Oral Tablet (Ditropan)Indication s:Urge incontinence of urine Take 1 Tablet by mouth in the morning and 1 Tablet before bedtime. 180 Tablet 06/10/2023 Active Levothyroxine Sodium 75 MCG Oral Tablet (Levoxyl)Indications :Hypothyroidism, unspecified type TAKE ONE TABLET BY MOUTH EACH MORNING 30 MINUTES PRIOR TO BREAKFAST OR OTHER MEDS *FOR HYPOTHYROIDISM* 90 Tablet 06/10/2023 Active Atorvastatin Calcium 80 MG Oral Tablet (Lipitor)Indications :Hyperlipidemia with target LDL less than 70 Take 1 Tablet by mouth every night at bedtime. 90 Tablet 06/10/2023 Active Famotidine 20 MG Oral Tablet (Pepcid)Indications: Gastroesophageal reflux disease without esophagitis Take 1 Tablet by mouth every night at bedtime. 90 Tablet 1 06/22/2023 Active Fexofenadine HCl 180 MG Oral Tablet (Penny) Take 1 Tablet by mouth daily as needed for Allergies. 90 Tablet 3 06/23/2023 Active Ferrous Sulfate 325 (65 Fe) MG Oral Tablet (Feosol) Take 1 Tablet by mouth every other day. 45 Tablet 3 06/23/2023 Active QUEtiapine Fumarate 200 MG Oral Tablet (SEROquel) TAKE ONE TABLET BY MOUTH AT BEDTIME NIGHTLY. FOR DEPRESSION 30 Tablet 5 08/12/2023 Active Donepezil HCl 5 MG Oral Tablet (Aricept) TAKE WITH LARGEST MEAL OF THE DAY. 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 10/04/2019 Advanced directives, counseling/discussion 10/03 History of TX (myocardial infarction) 09/29/2019 Osteoporosis, 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 Coronary arteriosclerosis in [place] artery 04/05 Hypertensive kidney disease with chronic kidney disease stage III 10/08/2018 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 06/23/2018 Overweight (BMI 25.0-29.9) 06/23/2018 Vitamin D deficiency 06/23/2018 B12 deficiency 06/23/2018 S/P laminectomy 11/05/2015 BPPV (benign paroxysmal positional vertigo) 09/2015 HTN, goal below 140/90 04/19/2015 Lumbar radiculopathy 12/06/2014 Peripheral neuropathy 12/06/2014 Mild episode of recurrent major depressive disor naif 12/06/2014 Gastroesophageal reflux disease without esophagi tis 12/06/2014 Hyperlipidemia with target LDL less than 70 09/27 Overview: ICD-10 update of inactive term Obstructive sleep apnea of adult 12/15/2013 Bipolar 2 disorder, major depressive episode 10/2013 Hypothyroidism 08/04/2013 Postsurgical percutaneous tr ansluminal coronary angioplasty (PTCA) status 05/16/2012 Overview: mid rca,distal rca Parkinson disease documented as of this encounter (statuses as of 09/14/2023) Resolved Problems Problem Noted Date Diagnosed Date Resolved Date Inflammation of sacroiliac joint 04/13/2020 05/10/2021 Kidney disease, chronic, sta ge III (GFR 30-59 ml/min) 08/09/2018 11/11/2018 Overview: Per CKD protocol #1 Constipation 03/27/2016 07/22/2016 Intractable back pain 03/27/20162016 E-coli UTI 03/27/2016 07/22/2016 UTI (urinary tract infection) 03/27/2016 07/22/2016 Neuropathy 03/05/2015 03/05/2015 Osteoporosis 01/30/2015 04/05/2019 Other chest pain 08/23/2014 10/09/2014 C. difficile colitis 07/21/2014 015 Nausea with vomiting 07/20/2014 015 Disorder of bone and cartilage 08/04/2013 12/06/2014 Overview: ICD-10 update of inactive term Major depressive disorder 08/04/2013 Overview: ICD-10 update of inactive term Other screening mammogram 08/04/2013 Adjustment disorder with depressed mood 08/04/2013 12/06/2014 Hyperlipidemia 12/28/2012 10/09/2014 Thoracic and lumbosacral neuritis 08/08/2002 12/06/2014 Coronary atherosclerosis of [place] coronary artery 04/05/2019 Hyperlipidemia with target LDL less than 100 12/28/2012 Overview: ICD-10 update of inactive term documented as of this encounter (statuses as of 09/14/2023) Immunizations Name Administration Dates Next Due COVID-19 mRNA, LNP-s, No Pre serve, 2-Dose Series (Moderna) 06/16/2020,05/19/2020 Pneumococcal Conjugate Vacc, 13 Valent (Prevnar) 12/08/2016 Pneumococcal Polysaccharide PPV23 (Pneumovax) 06/01/2009 Season Influenza, Quad, PF, Adjuvanted, 65+ Yrs, IM (FLUAD) 01/20/2022 Seasonal Influenza, Quadriva lent Hd (Fluzone Hd) 2021 Seasonal Influenza, Quadriva lent Hd, 65+ Yrs 12/29/2019 Seasonal Influenza, Quadriva lent, No Preserve, IM 12/08/2016,03/05/2015 Seasonal Influenza, Split, I IV3, No Preserve, Inj 01/11/2013 Seasonal Influenza, Split, I IV3, With Preserve, Inj 12/28/2017,03/27/2016,12/29/2013 Seasonal Influenza, Trivalen t, Adjuvanted, 65+ yrs 12/15/2018 TDAP (age 10 and older)(Boostrix) 07/16/2011 documented as of this encounter Social History Tobacco Use Types Packs/Day Years Used Date Smoking Tobacco: Never Cigarettes Smokeless Tobacco: Never Alcohol Use Standard Drinks/Week Comments No 0 (1 standard drink = 0.6 oz pur e alcohol) Never had any PHQ-2 Answer Date Recorded PHQ-2 Score 5 09/14/2019 Hunger Vital Sign Answer Date Recorded Worried About Running Out of Food in the Last Ye ar Never true 10/04/2019 Ran Out of Food in the Last Year Never true 10/04/2019 Sex and Gender Information Value Date Recorded Sex Assigned at Female 11/17/2020 10:06 AM EDT Gender Identity Female 11/17/2020 10:06 AM EDT Sexual Orientation Straight 11/17/2020 10 :06 AM EDT Job Start Date Occupation Industry Not on file Not on file Not on file documented as of this encounter Functional Status Functional Status Response Date of Assess ment Are you deaf or do you have serious difficulty h earing? No 09/15/2016 Are you blind or do you have serious difficulty seeing, even when wearing glasses? No 09/15/2016 Do you have serious difficul ty walking or climbing stairs? (5 years old or older) Yes 09/15/2016 Do you have difficulty dress ing or bathing? (5 years old or older) No 09/15/2016 Because of a physical, menta l, or emotional condition, do you have difficulty doing errands alone such as visiting a doctor s office or shopping? (15 years old or older) No 09/16/19 17 Cognitive Status Response Date of Assessm ent Because of a physical, menta l, or emotional condition, do you have serious difficulty concentrating, remembering, or making decisions? (5 years old or older) No 09/15/2016 documented as of this encounter Miscellaneous Notes * Telephone Encounter - Josette Hamm RN - 09/14/2023 3:32 PM EDTRefused Prescriptions: Disp Refills oxyBUTYnin Chloride 5 MG Oral Tablet (Ditr*180 Ta*0 Sig: Take 1Tablet by mouth in the morning and 1 Tablet before bedtime.Refused By: JOSETTE HAMM MReason for Refusal: Managed by another physician * Telephone Encounter - Jolene Tejada OSA - 09/14/2023 12:37 PM EDT Did you pend patient's preferred pharmacy and medication before forwarding?yes Pharmacy: [facility] Pending Prescriptions: Disp Refills oxyBUTYnin Chloride 5 MG Oral Tablet (Dit*180 Ta*0 Sig: Take 1 Tablet by mouth in the morning and 1 Tablet before bedtime. Last Visit: 11/20/2021 (in office), 06/14/2021 (telemedicine) Next Visit: Visit date not found If no future appointments scheduled, and last appointment is greater than a year ago, please schedule patient for a follow-up appointment Last date the medication was ordered: 06.10.23 Is this request for a controlled substance?No Urine Drug Screen: Results for orders placed or performed during the hospital encounter of 05/22/16 TOX SCREEN, URINE, W/O CONFIRMATION Result Value AMPHETAMINES NEGATIVE BARBITURATES NEGATIVE BENZODIAZEPINES NEGATIVE CANNABINOIDS NEGATIVE COCAINE METABOLITE NEGATIVE MORPHINE/ CODEINE NEGATIVE METHADONE METABOLITE NEGATIVE OXYCODONE NEGATIVE NOTE: THE ABOVE SCREENING RESULTS ARE PRESUMPTIVE AND CAN ONLY BE USED FOR MEDICAL PURPOSES. CONFIRMATORY TESTING IS AVAILABLE UPON REQUEST. CUTOFF CONCENTRATION Patient Phone Numbers Neema [phone] Labs: Lab Results Component Value Date/Time CREAT 0.90 07/09/2022 12:00 AM CREAT 0.9 04/13/2020 02:40 PM POTASSIUM 4.3 07/09/2022 12:00 AM POTASSIUM 4.2 04/13/2020 02:40 PM TSH 2.110 07/09/2022 12:00 AM TSH 1.13 04/13/2020 02:40 PM LDLCALC 49.40 07/09/2022 12:00 AM LDLCALC 66 06/23/2018 03:20 PM LDLDIRECT 66 07/09/2022 12:00 AM LDLDIRECT 65 04/13/2020 02:40 PM ALT 12 09/26/2021 01:32 PM ALT 12 04/13/2020 02:40 PM HGBA1C 5.6 09/26/2021 01:32 PM HGBA1C 4.4 03/28/2016 06:20 AM documented in this encounter Plan of Treatment Health Maintenance Due Date Last Done Comments Zoster Vaccines (1 of 2) 1990 DXA Scan 07/14/2020 07/14/2018, 12/29, 05/11/2012 Depression Monitoring 09/12/2020 09/13/2019 *BISPHONATE OR OTHER ACCEPTABLE MEDICATION NEEDED FOR OSTEOPOROSIS (REFER TO SMARTSET #1146) 05/24/2021 DTaP,Tdap,and Td Vaccines (2 - Td or Tdap) 07/15/2021 07/16/2011 COVID-19 Vaccine (3 - season) 2022 06/16/2020, 05/19/2020 GFR 01/08/2023 07/09/2022, 08/30, 06/07/2021, Additional history exists Albumin/Creatinine Ratio 07/10/2023 07/09/2022, 02/27 CKD HGB USE SMARTSET 32163 07/10/202307/09, 09/26/2021, 09/26/2021, Additional history exists CKD PHOS USE SMARTSET 17063 07/10/202306/28, 04/13/2020, 03/11/2019 TSH 07/10/2023 07/09/2022, 08/30, 10/11/2020, Additional history exists Pneumococcal Vaccine: 65+ Years Completed 12/08/2016, 06/01/2009 VITAMIN D LEVEL ONCE IN A LIFETIME-USE SMARTSET# 31125 Completed 06/23/2018, 07/24/2016, 02/05/2015 Influenza Vaccine (FLU shot) Completed , 01/20/2022, 2021, Additional history exists GARDASIL-HPV IMMUNIZATION SERIES Aged Out No longer eligible based on patient's age to complete this topic Hepatitis B Aged Out No longer eligi ble based on patient's age to complete this topic MENINGOCOCCAL (MENACTRA/MENVEO) Aged Out No longer eligible based on patient's age to complete this topic documented as of this encounter Medical Devices Not on filedocumented as of this encounter Visit Diagnoses Diagnosis Urge incontinence of urine Urge incontinence documented in this encounter Advance Directives Documents on File Type Date Recorded 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 Question Answer Comments Discussion of Advance Direct ailyn occurred with: Patient Does the patient have a Living Will? Yes , in chart and reviewed as current Does the patient have Health Care Power of Boat Hand? Yes, in chart and reviewed as current Bag Valve Device? Yes Intubation? Yes Cardiac Compressions? No Defibrillation? No Synchronized Cardioversion? No External Pacemaker? No Cardiac Drugs? No * Full Code Date Activated Date Inactivated Comments 05/23/2016 1:29 AM 05/29/2016 6:21 PM This order re flects the patients wishes and were consensually agreed upon. Question Answer Comments Discussion of Advance Directives occurred with: Patient Does the patient have a Living Will? No Does the patient have Health Care Power of Attor lai? No * Full Code Date Activated Date Inactivated Comments 03/24/2016 2:57 PM 03/28/2016 10:21 PM This orde r reflects the patients wishes and were consensually agreed upon. Question Answer Comments Discussion of Advance Directives occurred with: Patient Does the patient have a Living Will? No Does the patient have Health Care Power of Attor lai? No * Full Code Date Activated Date Inactivated Comments 08/23/2014 2:24 PM 08/24/2014 5:25 PM This order r eflects the patients wishes and were consensually agreed upon. Question Answer Comments Discussion of Advance Directives occurred with: Not Discussed Does the patient have a Living Will? No Does the patient have Health Care Power of Attor lai? No * Full Code Date Activated Date Inactivated Comments 07/20/2014 1:25 AM 07/23/2014 6:42 PM This order r eflects the patients wishes and were consensually agreed upon. Question Answer Comments Discussion of Advance Directives occurred with: Patient Care Teams Family Practice Physician Relationship Specialty Start Date End Date Moris Dodd PA-C [address] [place] [id number] PCP - General Physician Cd Manufacturing Supervisor 09/14/23 documented as of this encounter
--- OUTSIDE RECORDS SUMMARY | 2023-12-24 17:42 | External Medical Summary | Summary of Care ---
Author Name Unknown Organization [facility] Address [address] [facility] [place] [address] Phone [phone] Care Team Providers Care Retail Parts Professional Name Role Phone Moris Dodd PA-C Primary Care Provider [phone] Reason for Visit * Reason Onset Date Comments Medication Refill 10/19/2023 Encounter Details Date Type Department Care Team (Late st Contact Info) Description 10/19/2023 Refill Family Medicine [address] [place] [address] Gabriela Muniz MD [address] [place] [address] [place] [address] Urge incontinence of urine; Hypothyroidism, unspecified type Allergies Active Allergy Reactions Criticality Noted Date Comments Alendronic Acid 08/04/2013 Nausea, vomiting, also on celebrex and plavix Ampicillin Hives 09/19/2011 Celecoxib 08/04/2013 Nausea, vomiting while on plavix Codeine Other (Please comment) 09/19/2011 Projectile vomiting Morphine Other (Please comment) 09/19/2011 Vomiting Niacin Er Hives 09/19/2011 Penicillins 08/08/2002 rash Procainamide Rash 09/19/2011 Tramadol Nausea/vomiting High 03/27/2016 documented as of this encounter (statuses as of 10/19/2023) Medications Medication Sig Dispensed Refills Start Date [...] A DAY. 60 Cap 11 10/22/2016 Active [place]-3 Fatty Acids (FISH OIL) 1200 MG CAPSIndications:1 [...] FOR PARKINSONS 90 Tablet 5 05/07/2023 Active [place] Carbonate ER 300 MG Oral Tablet Extended [...] MEDS *FOR HYPOTHYROIDISM* 90 Tablet 06/10/2023 Active Famotidine 20 MG [...] MOUTH EACH MORNING 30 Capsule 08/19/2023 Active Atorvastatin Calcium 80 MG Oral Tablet (Lipitor)Indications :Hyperlipidemia with target LDL less than 70 Take 1 Tablet by mouth every night at bedtime. 90 Tablet 09/15/2023 Active documented as of this encounter (statuses as of 10/19/2023) Active Problems Problem Noted Date Diagnosed Date Chronic midline low back pain without sciatica 1 05/13/2020 At risk for falls 2021 Skin ulcer of scalp, limited to breakdown of ski n 04/13/2020 [facility]ides in [place] [facility] care [facility] 10/04/2019 Advanced directives, counseling/discussion 10/03 History of [place] (myocardial infarction) 09/29/2019 Osteoporosis, 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 Coronary arteriosclerosis in [place] artery 04/05 Hypertensive kidney disease with chronic [...] as of this encounter (statuses as of 10/19/2023) Resolved Problems Problem Noted Date Diagnosed Date [...] lumbosacral neuritis 08/08/2002 12/06/2014 Coronary atherosclerosis of [place] coronary artery 04/05/2019 Hyperlipidemia with target LDL less than 100 12/28/2012 Overview: ICD-10 update of inactive term documented as of this encounter (statuses as of 10/19/2023) Immunizations Name Administration Dates Next Due COVID-19 [...] in the Last Year Never true 10/04/2019 Utilities Answer Date Recorded Do you have trouble paying y our heating, water, or electric bill? (Adult - for ages 18 years and over) Not on file 09/15/2023 Is your family able to pay t he heat, water, or electric bill? (Household - for ages 0-17 years) Not on file 09/15/2023 Does your family have access to good internet? (Household - for ages 0-17 years) Not on file 09/15/2023 Social Connections Answer Date Recorded How often do you feel lonely or isolated from those around you? (Adult - for ages 18 years and over) Not on file 09/15/2023 Sex and Gender Information Value Date Recorded [...] Telephone Encounter - Josette Hamm RN - 10/19/2023 12:21 PM EDTRefused Prescriptions: Disp Refills oxyBUTYnin Chloride 5 MG Oral Tablet (Ditr*180 Ta*0 Sig: Take 1 Tablet by mouth in the morning and 1 Tablet before bedtime.Refused By: JOSETTE HAMM for Refusal: Managed by another physician DULoxetine HCl 60 MG Oral Capsule Delayed *30 Cap*0 Sig: TAKE ONE CAPSULE BY MOUTH EACH MORNINGRefused By: JOSETTE HAMM for Refusal: Managed by another physician Levothyroxine Sodium 75 MCG Oral Tablet (L*90 Tab*0 Sig: TAKE ONE TABLET BY MOUTH EACH MORNING 30 MINUTES PRIOR TO BREAKFAST OR OTHER MEDS *FOR HYPOTHYROIDISM*Refused By: JOSETTE HAMM for Refusal: Managed by another physician * Telephone Encounter - Josette Hamm RN - 10/19/2023 12:20 PM EDT not our patient any longer * Telephone Encounter - Monika Mendenhall OSA - 10/19/2023 10:44 AM EDT Did you pend patient's preferred pharmacy and medication before forwarding?yes Pharmacy: [facility] Pending Prescriptions: Disp Refills oxyBUTYnin Chloride 5 MG Oral Tablet (Dit*180 Ta*0 Sig: Take 1 Tablet by mouth in the morning and 1 Tablet before bedtime. DULoxetine HCl 60 MG Oral Capsule Delayed*30 Cap*0 Sig: TAKE ONE CAPSULE BY MOUTH EACH MORNING Levothyroxine Sodium 75 MCG Oral Tablet (*90 Tab*0 Sig: TAKE ONE TABLET BY MOUTH EACH MORNING 30 MINUTES PRIOR TO BREAKFAST OR OTHER MEDS *FOR HYPOTHYROIDISM* Last Visit: 11/20/2021 (in office), 06/14/2021 (telemedicine) Next Visit: Visit date not found If no future appointments scheduled, and last appointment is greater than a year ago, please schedule patient for a follow-up appointment Last date the medication was ordered: 08/19/23 Is this request for a controlled substance?No [...] UPON REQUEST. CUTOFF CONCENTRATION Patient Phone Numbers stickK [phone] Labs: Lab Results Component Value Date/Time CREAT [...] 07/10/2023 07/09/2022, 02/27 CKD HGB USE SMARTSET 05556 07/10/202307/09, 09/26/2021, 09/26/2021, Additional history exists CKD PHOS USE SMARTSET 66119 07/10/202306/28, 04/13/2020, 03/11/2019 TSH 07/10/2023 07/09/2022, 08/30, 10/11/2020, Additional history exists Influenza Vaccine (FLU shot) (#1) 2023 01/14/2023, 01/20/2022, 2021, Additional history exists Pneumococcal Vaccine: 65+ Years Completed 12/08/2016, 06/01/2009 VITAMIN D LEVEL ONCE IN A LIFETIME-USE SMARTSET# [id number] Completed 06/23/2018, 07/24/2016, 02/05/2015 HPV (Gardasil) Vaccine Aged Out No lo nger eligible based on patient's age to complete this topic Hepatitis B Vaccine Aged Out No longe r eligible based on patient's age to complete this topic MENINGOCOCCAL (MENACTRA/MENVEO) Aged Out No longer eligible based on patient's age to complete this topic documented as of this encounter Medical Devices Not on filedocumented as of this encounter Visit Diagnoses Diagnosis Urge incontinence of urine Urge incontinence Hypothyroidism, unspecified type documented in this encounter Advance Directives Documents on File Type Date Recorded Patient Green Chain Offbearer Expl anation POLST 10/31/2021 [place] OR DERS FOR LIFE-SUSTAINING TREATMENT POLST 10/04/2019 POLST [facility] ORDERS FOR LIFE-SUSTAINING TREATMENT Power of Book Sorter 03/24/2016 POWER OF A TTORNEY DURABLE HEALTH CARE POWER OF DOUGHNUT BATTER MIXER Advance Directives and Living Will 09/25/2015 ADVANCE [...] the patient have Health Care Power of Book Sorter? Yes, in chart and reviewed as current [...] Advance Directives occurred with: Patient Care Teams Retail Parts Professional Relationship Specialty Start Date End Date Moris Dodd, JATIN [address] [place] [id number] PCP - General Physician Flocculator Operator 09/14/23 documented as of this encounter
--- OUTSIDE RECORDS SUMMARY | 2023-12-24 17:42 | External Medical Summary | Summary of Care ---
Author Name Unknown Organization [facility] Address [address] [facility] [place] [address] Phone [phone] Care Team Providers Care Phonograph Mechanic Name Role Phone Gabriela Muniz MD Primary Care Provide r Encounter Details Date Type Department Care Team (Late st Contact Info) Description 08/21/2023 Orders Only PATIENT PORTAL DO NOT DELETE THIS DEPT USED BY ALAINA CAMPBELL [id number] Allergies Active Allergy Reactions Criticality Noted Date Comments Alendronic Acid 08/04/2013 Nausea, vomiting, also on celebrex and plavix Ampicillin Hives 09/19/2011 Celecoxib 08/04/2013 Nausea, vomiting while on plavix Codeine Other (Please comment) 09/19/2011 Projectile vomiting Morphine Other (Please comment) 09/19/2011 Vomiting Niacin Er Hives 09/19/2011 Penicillins 08/08/2002 rash Procainamide Rash 09/19/2011 Tramadol Nausea/vomiting High 03/27/2016 documented as of this encounter (statuses as of 08/21/2023) Medications Medication Sig Dispensed Refills Start Date [...] A DAY. 60 Cap 11 10/22/2016 Active [place]-3 Fatty Acids (FISH OIL) 1200 MG CAPSIndications:1 [...] FOR PARKINSONS 90 Tablet 5 05/07/2023 Active [place] Carbonate ER 300 MG Oral Tablet Extended [...] as of this encounter (statuses as of 08/21/2023) Active Problems Problem Noted Date Diagnosed Date Chronic midline low back pain without sciatica 1 05/13/2020 At risk for falls 2021 Skin ulcer of scalp, limited to breakdown of ski n 04/13/2020 Resides in application security developer care facility 10/04/2019 Advanced directives, counseling/discussion 10/03 History of [place] (myocardial infarction) 09/29/2019 Osteoporosis, 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 Coronary arteriosclerosis in [place] artery 04/05 Hypertensive kidney disease with chronic [...] as of this encounter (statuses as of 08/21/2023) Resolved Problems Problem Noted Date Diagnosed Date [...] lumbosacral neuritis 08/08/2002 12/06/2014 Coronary atherosclerosis of [place] coronary artery 04/05/2019 Hyperlipidemia with target LDL less than 100 12/28/2012 Overview: ICD-10 update of inactive term documented as of this encounter (statuses as of 08/21/2023) Immunizations Name Administration Dates Next Due COVID-19 [...] No 09/15/2016 documented as of this encounter Plan of Treatment Health Maintenance Due Date Last Done Comments Zoster Vaccines (1 of 2) 1990 DXA Scan 07/14/2020 07/14/2018, 12/29, 05/11/2012 *BISPHONATE OR OTHER ACCEPTABLE MEDICATION NEEDED FOR OSTEOPOROSIS (REFER TO SMARTSET #1146) 05/24/2021 DTaP,Tdap,and Td Vaccines (2 - Td or Tdap) 07/15/2021 07/16/2011 COVID-19 Vaccine (3 - season) 2022 06/16/2020, 05/19/2020 GFR 01/08/2023 07/09/2022, 08/30, 06/07/2021, Additional history exists Albumin/Creatinine Ratio 07/10/2023 07/09/2022, 02/27 CKD HGB USE SMARTSET 91036 07/10/202307/09, 09/26/2021, 09/26/2021, Additional history exists CKD PHOS USE SMARTSET 87953 07/10/202306/28, 04/13/2020, 03/11/2019 TSH 07/10/2023 07/09/2022, 08/30, 10/11/2020, Additional history exists Influenza Vaccine (FLU shot) (Season Ended) 2023 01/20/2022, 2021, 12/29/2019, Additional history exists Pneumococcal Vaccine: 65+ Years Completed 12/08/2016, 06/01/2009 VITAMIN D LEVEL ONCE IN A LIFETIME-USE SMARTSET# [id number] Completed 06/23/2018, 07/24/2016, 02/05/2015 GARDASIL-HPV IMMUNIZATION SERIES Aged Out No longer eligible based on patient's age to complete this topic Hepatitis B Aged Out No longer eligi ble based on patient's age to complete this topic MENINGOCOCCAL (MENACTRA/MENVEO) Aged Out No longer eligible based on patient's age to complete this topic documented as of this encounter Medical Devices Not on filedocumented as of this encounter Advance Directives Documents on File Type Date Recorded Patient Perfume Maker Expl anation POLST 10/31/2021 [place] OR DERS FOR LIFE-SUSTAINING TREATMENT POLST 10/04/2019 POLST [facility] ORDERS FOR LIFE-SUSTAINING TREATMENT Power of Music Executive 03/24/2016 POWER OF A TTORNEY DURABLE HEALTH CARE POWER OF TAILOR WOMEN'S GARMENT ALTERATION Advance Directives and Living Will 09/25/2015 ADVANCE [...] the patient have Health Care Power of Music Executive? Yes, in chart and reviewed as current [...] Advance Directives occurred with: Patient Care Teams Phonograph Mechanic Relationship Specialty Start Date End Date Gabriela Muniz MD [address] [place] [address] [place] [phone] PCP - General Family Medicine 11/18/21 documented as of this encounter
--- OUTSIDE RECORDS SUMMARY | 2023-12-24 17:42 | External Medical Summary | Summary of Care ---
Author Name Unknown Organization [facility] Address [address] [facility] [place] [address] Phone [phone] Care Team Providers Care Software Quality Assurance Analyst Name Role Phone Moris Dodd PA-C Primary Care Provider [phone] Reason for Visit * Reason Onset Date Comments Medication Refill 11/16/2023 Encounter Details Date Type Department Care Team (Late st Contact Info) Description 11/16/2023 Refill Family Medicine [address] [place] [address] Gabriela Muniz MD [address] [place] [address] [place] [id number] Allergies Active Allergy Reactions Criticality Noted Date Comments Alendronic Acid 08/04/2013 Nausea, vomiting, also on celebrex and plavix Ampicillin Hives 09/19/2011 Celecoxib 08/04/2013 Nausea, vomiting while on plavix Codeine Other (Please comment) 09/19/2011 Projectile vomiting Morphine Other (Please comment) 09/19/2011 Vomiting Niacin Er Hives 09/19/2011 Penicillins 08/08/2002 rash Procainamide Rash 09/19/2011 Tramadol Nausea/vomiting High 03/27/2016 documented as of this encounter (statuses as of 11/27/2023) Medications Medication Sig Dispensed Refills Start Date [...] A DAY. 60 Cap 11 10/22/2016 Active [place]-3 Fatty Acids (FISH OIL) 1200 MG CAPSIndications:1 [...] FOR PARKINSONS 90 Tablet 5 05/07/2023 Active [place] Carbonate ER 300 MG Oral Tablet Extended [...] as of this encounter (statuses as of 11/27/2023) Active Problems Problem Noted Date Diagnosed Date Chronic midline low back pain without sciatica 1 05/13/2020 At risk for falls 2021 Skin ulcer of scalp, limited to breakdown of ski n 04/13/2020 Resides in [facility] terminal operator care facility 10/04/2019 Advanced directives, counseling/discussion 10/03 History of [place] (myocardial infarction) 09/29/2019 Osteoporosis, 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 Coronary arteriosclerosis in [place] artery 04/05 Hypertensive kidney disease with chronic [...] as of this encounter (statuses as of 11/27/2023) Resolved Problems Problem Noted Date Diagnosed Date [...] lumbosacral neuritis 08/08/2002 12/06/2014 Coronary atherosclerosis of [place] coronary artery 04/05/2019 Hyperlipidemia with target LDL less than 100 12/28/2012 Overview: ICD-10 update of inactive term documented as of this encounter (statuses as of 11/27/2023) Immunizations Name Administration Dates Next Due COVID-19 [...] lent, No Preserve, IM 12/08/2016,03/05/2015 Seasonal Influenza, Trivalen t, (IIV3), PF, (Fluzone) 01/11/2013 Seasonal Influenza, Trivalen t, (IIV3), with Preserv, (Fluzone) 12/28/2017,03/27/2016,12/29/2013 Seasonal Influenza, Trivalen t, Adjuvanted, 65+ YRS, PF, (Fluad) 12/15/2018 TDAP (age 10 and older)(Boostrix) 07/16/2011 [...] FOR OSTEOPOROSIS (REFER TO SMARTSET #1146) 05/24/2021 DTap/Tdap Vaccines (2 - Td or Tdap) 07/15/2021 07/16/2011 COVID-19 Vaccine (3 - 2022- season) 2022 06/16/2020, 05/19/2020 GFR 01/08/2023 07/09/2022, 08/30, 06/07/2021, Additional history exists Albumin/Creatinine Ratio 07/10/2023 07/09/2022, 02/27 CKD HGB USE SMARTSET 07657 07/10/202307/09, 09/26/2021, 09/26/2021, Additional history exists CKD PHOS USE SMARTSET 61481 07/10/202306/28, 04/13/2020, 03/11/2019 TSH 07/10/2023 07/09/2022, 08/30, 10/11/2020, Additional history exists Influenza Vaccine (FLU shot) (#1) 2023 01/14/2023, 01/20/2022, 2021, Additional history exists Pneumococcal Vaccine: 65+ Years Completed 12/08/2016, 06/01/2009 VITAMIN D LEVEL ONCE IN A LIFETIME-USE SMARTSET# 59692 Completed 06/23/2018, 07/24/2016, 02/05/2015 HPV (Gardasil) Vaccine [...] Documents on File Type Date Recorded Patient Caramel Candy Maker Helper Expl anation POLST 10/31/2021 [place] OR DERS FOR LIFE-SUSTAINING TREATMENT POLST 10/04/2019 POLST [facility] ORDERS FOR LIFE-SUSTAINING TREATMENT Power of Public Information Director 03/24/2016 POWER OF A TTORNEY DURABLE HEALTH CARE POWER OF TECHNICAL OPERATIONS VICE PRESIDENT Advance Directives and Living Will 09/25/2015 ADVANCE [...] the patient have Health Care Power of Public Information Director? Yes, in chart and reviewed as current [...] Advance Directives occurred with: Patient Care Teams Software Quality Assurance Analyst Relationship Specialty Start Date End Date Moris Dodd, JATIN [address] [place] [phone] PCP - General Physician Watch Supervisor 09/14/23 documented as of this encounter
--- OUTSIDE RECORDS SUMMARY | 2023-12-24 17:42 | External Medical Summary | Summary of Care ---
Author Name Unknown Organization [facility] Address [address] [facility] [place] [address] Phone [phone] Care Team Providers Care Claims Adjudicator Name Role Phone Moris Dodd PA-C Primary Care Provider [phone] Reason for Visit * Reason Onset Date Comments Medication Refill 09/14/2023 Encounter Details Date Type Department Care Team (Late st Contact Info) Description 09/14/2023 Refill Family Medicine [address] [place] [address] Brian Muniz MD [address] [place] [address] [place] [address] Hyperlipidemia with target LDL less than 70 Allergies Active Allergy Reactions Criticality Noted Date Comments Alendronic Acid 08/04/2013 Nausea, vomiting, also on celebrex and plavix Ampicillin Hives 09/19/2011 Celecoxib 08/04/2013 Nausea, vomiting while on plavix Codeine Other (Please comment) 09/19/2011 Projectile vomiting Morphine Other (Please comment) 09/19/2011 Vomiting Niacin Er Hives 09/19/2011 Penicillins 08/08/2002 rash Procainamide Rash 09/19/2011 Tramadol Nausea/vomiting High 03/27/2016 documented as of this encounter (statuses as of 09/15/2023) Medications Medication Sig Dispensed Refills Start Date End Date Status ASPIRIN 81 MG PO TABS daily Active nitroglycerin (NITROSTAT) 0.[address] 1 Tab under the tongue every 5 minutes as needed for Pain, Chest. For up to 3 doses in 15 minutes. 15 Tab 3 07/26/2014 Active docusate sodium (COLACE) 100 MG CapsuleIndications :Constipation, unspecified constipation type TAKE 1 CAP BY MOUTH 2 TIMES A DAY. 60 Cap 11 10/22/2016 Active [place]-3 Fatty Acids (FISH OIL) 1200 MG CAPSIndications:1 capsule 2 times a day Take by mouth. Active Cholecalciferol (VITAMIN D) 2000 units Tablet Take 2,000 Units by mouth daily. Active saline (OCEAN) 0.65 % nasal spray OK for her to keep in her room to use as needed 30 mL 12 06/23/2018 Active Betamethasone Dipropionate 0.05 % ointmentIndication s:Lichenification Apply 2x daily to area on scalp (or more if itchy instead of scratching) until improved/resolve d 50 g 11/30/2019 Active Vitamin B-12 1000 MCG Oral TabletIndications: B12 deficiency Take 1 Tab by mouth every other day. 45 Tab 1 04/09/2020 Active Os-Phil Calcium + D3 500-200 MG-UNIT Oral Tablet (Calcium Carb-Cholecalcifer ol)Indications:Age -related osteoporosis without current pathological fracture Take 1 Tab by mouth every other day. with breakfast 90 Tab 3 07/05/2020 Active Alum & Mag Hydroxide-Simeth 200-200-20 MG/5ML Oral SuspensionIndicati ons:Gastroesophage al reflux disease without esophagitis Take by mouth [...] Active Premarin 0.625 MG/GM Vaginal Cream (Estrogens, Conjugated)Indicat ions:Postmenopausa l atrophic vaginitis Insert 1 gram into the vagina at bedtime nightly x 7 days then use 1 gram twice a week 42.5 g 5 07/11/2021 Active Polyethylene Glycol 3350 17 GM/SCOOP Oral Powder (MiraLax)Indicatio ns:Constipation, unspecified constipation type Take by mouth 17 g as needed for Constipation. Dissolve one heaping tablespoon in 8 ounces of water or juice. 116 g 5 07/22/2021 Active guaiFENesin ER 600 MG Oral Tablet Extended Release 12 Hour (Mucinex)Indicatio ns:Acute cough Take by mouth 1 Tablet 2 times a day as needed for Congestion. Take with plenty of water. Do not cut, crush or chew 40 Tablet 2 09/26/2021 Active Acetaminophen 500 MG Oral Tablet (Tylenol Extra Strength)Indicatio ns:1 pill 4 times a day as needed for pain Take by mouth 1 Tablet every 6 hours as needed for Pain, Mild. 100 Tablet 1 10/02/2021 Active Meclizine HCl 25 MG Oral Tablet (Antivert)Indicati ons:Vertigo Take by mouth 1 Tablet 2 times a day as needed for Dizziness. Take by mouth twice a day; she may have one additional tablet as needed for dizziness 90 Tablet 5 10/31/2021 Active Esomeprazole Magnesium 40 MG Oral Capsule Delayed ReleaseIndications :Gastroesophageal reflux disease without esophagitis TAKE 1 CAPSULE BY MOUTH ONCE DAILY *DO NOT CRUSH OR CHEW* 90 Capsule 2 03/06/2022 Active Loratadine 10 MG Oral Tablet (Claritin) Take 1 Tablet by mouth every night at bedtime. 30 Tablet 5 03/18/2022 Active Losartan Potassium 25 MG Oral Tablet (Cozaar)Indication s:HTN, goal below 140/90 Take 1 Tablet by mouth in the morning. 90 Tablet 2 03/13/2023 Active Diclofenac Sodium 1 % External Gel (Voltaren) APPLY 2 GRAM TOPICALLY TO AFFECTED AREA twice a day *MAX-DOSE 32GM TOTAL BODY* LOWER MAX-16GM/JOINT/D AY* UPPER MAX-8GM/JOINT/DA Y* *SELF ADMINISTER* 100 g 3 04/13/2023 Active Carbidopa-Levodopa 25-100 MG Oral Tablet (Sinemet)Indicatio ns:Secondary parkinsonism (HCC) TAKE 1 TABLET BY MOUTH THREE TIMES DAILY FOR PARKINSONS 90 Tablet 5 05/07/2023 Active [place] Carbonate ER 300 MG Oral Tablet Extended Release (Lithobid ER)Indications:Bip olar 2 disorder, major depressive episode (HCC) TAKE 1 TABLET BY MOUTH AT BEDTIME NIGHTLY. FOR BIPOLAR DISORDER 30 Tablet 5 05/07/2023 Active Gabapentin 300 MG Oral Capsule (Neurontin)Indicat ions:Lumbar radiculopathy,S/P laminectomy Take 1 Capsule by mouth in the morning and 1 Capsule at noon and 1 Capsule before bedtime. 90 Capsule 5 05/07/2023 Active oxyBUTYnin Chloride 5 MG Oral Tablet (Ditropan)Indicati ons:Urge incontinence of urine Take 1 Tablet by mouth in the morning and 1 Tablet before bedtime. 180 Tablet 06/10/2023 Active Levothyroxine Sodium 75 MCG Oral Tablet (Levoxyl)Indicatio ns:Hypothyroidism, unspecified type TAKE ONE TABLET BY MOUTH EACH MORNING 30 MINUTES PRIOR TO BREAKFAST OR OTHER MEDS *FOR HYPOTHYROIDISM* 90 Tablet 06/10/2023 Active Famotidine 20 MG Oral Tablet (Pepcid)Indication s:Gastroesophageal reflux disease without esophagitis Take 1 Tablet [...] Active Atorvastatin Calcium 80 MG Oral Tablet (Lipitor)Indicatio ns:Hyperlipidemia with target LDL less than 70 Take 1 Tablet by mouth every night at bedtime. 90 Tablet 09/15/2023 Active Atorvastatin Calcium 80 MG Oral Tablet (Lipitor)Indicatio ns:Hyperlipidemia with target LDL less than 70 Take 1 Tablet by mouth every night at bedtime. 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 04/05 Hypertensive kidney disease with chronic [...] as of this encounter (statuses as of 09/15/2023) Resolved Problems Problem Noted Date Diagnosed Date [...] lumbosacral neuritis 08/08/2002 12/06/2014 Coronary atherosclerosis of [place] coronary artery 04/05/2019 Hyperlipidemia with target LDL less than 100 12/28/2012 Overview: ICD-10 update of inactive term documented as of this encounter (statuses as of 09/15/2023) Immunizations Name Administration Dates Next Due COVID-19 [...] encounter Miscellaneous Notes * Telephone Encounter - Brian Muniz MD - 09/15/2023 7:46 AM EDT Signed Prescriptions: Disp Refills Atorvastatin Calcium 80 MG Oral Tablet (Li*90 Tab*0 Sig: Take 1 Tablet by mouth every night at bedtime. Authorizing Provider: BRIAN MUNIZ * Telephone Encounter - Valorie Reynoso CMA - 09/14/2023 3:27 PM EDTPending Prescriptions: Disp Refills Atorvastatin Calcium 80 MG Oral Tablet (Li*90 Tab*0 Sig: Take 1 Tablet by mouth every night at bedtime. * Telephone Encounter - Jolene Tejada OSA - 09/14/2023 12:33 PM EDT Did you pend patient's preferred pharmacy and medication before forwarding?yes Pharmacy: [facility] Pending Prescriptions: Disp Refills Atorvastatin Calcium 80 MG Oral Tablet (L*90 Tab*0 Sig: Take 1 Tablet by mouth every night at bedtime. Last Visit: 11/20/2021 (in office), 06/14/2021 [...] UPON REQUEST. CUTOFF CONCENTRATION Patient Phone Numbers Labs: Lab Results Component Value Date/Time CREAT [...] 07/10/2023 07/09/2022, 02/27 CKD HGB USE SMARTSET 13213 07/10/202307/09, 09/26/2021, 09/26/2021, Additional history exists CKD PHOS USE SMARTSET 06857 07/10/202306/28, 04/13/2020, 03/11/2019 TSH 07/10/2023 07/09/2022, 08/30, 10/11/2020, Additional history exists Pneumococcal Vaccine: 65+ Years Completed 12/08/2016, 06/01/2009 VITAMIN D LEVEL ONCE IN A LIFETIME-USE SMARTSET# 45218 Completed 06/23/2018, 07/24/2016, 02/05/2015 Influenza Vaccine (FLU [...] as of this encounter Visit Diagnoses Diagnosis Hyperlipidemia with target LDL less than 70 Other and unspecified hyperlipidemia documented in this encounter Advance Directives Documents on File Type Date Recorded Patient 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 Yes, in chart and reviewed as current [...] Advance Directives occurred with: Patient Care Teams Claims Adjudicator Relationship Specialty Start Date End Date Moris Dodd, JATIN [address] [place] [id number] PCP - General Physician Christmas Tree Grader 09/14/23 documented as of this encounter
--- OUTSIDE RECORDS SUMMARY | 2023-12-24 17:42 | External Medical Summary | Summary of Care ---
Author Name Unknown Organization [facility] Address [address] [facility] [place] [address] Phone [phone] Care Team Providers Care Healthcare Facility Administrator Name Role Phone Moris Dodd PA-C Primary Care Provider [phone] Reason for Visit * Reason Onset Date Comments Medication Refill 09/14/2023 Encounter Details Date Type Department Care Team (Late st Contact Info) Description 09/14/2023 Refill Family Medicine [address] [place] [address] Gabriela Muniz MD [address] [place] [address] [place] [address] Hypothyroidism, unspecified type Allergies Active Allergy Reactions [...] A DAY. 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 Coronary arteriosclerosis in [place] artery 04/05 Hypertensive kidney disease with chronic [...] lumbosacral neuritis 08/08/2002 12/06/2014 Coronary atherosclerosis of [place] coronary artery 04/05/2019 Hyperlipidemia with target LDL [...] Encounter - Josette Hamm RN - 09/14/2023 3:31 PM EDTRefused Prescriptions: Disp Refills Levothyroxine Sodium 75 MCG Oral Tablet (L*90 Tab*1 Sig: TAKE ONE TABLET BY MOUTH EACH MORNING 30 MINUTES PRIOR TO BREAKFAST OR OTHER MEDS *FOR HYPOTHYROIDISM*Refused By: JOSETTE HAMM MReason for Refusal: Managed by another physician * Telephone Encounter - Josette Hamm RN - 09/14/2023 3:30 PM EDT Pt is a patient of im McCl[facility] per [facility] on 08/20/23 * Telephone Encounter - Jolene TejadaSANJEEV - 09/14/2023 12:36 PM EDT Did you pend patient's preferred pharmacy and medication before forwarding?yes Pharmacy: [facility] Pending Prescriptions: Disp Refills Levothyroxine Sodium 75 MCG Oral Tablet (*90 [...] 07/10/2023 07/09/2022, 02/27 CKD HGB USE SMARTSET 95586 07/10/202307/09, 09/26/2021, 09/26/2021, Additional history exists CKD PHOS USE SMARTSET 20092 07/10/202306/28, 04/13/2020, 03/11/2019 TSH 07/10/2023 07/09/2022, 08/30, 10/11/2020, Additional history exists Pneumococcal Vaccine: 65+ Years Completed 12/08/2016, 06/01/2009 VITAMIN D LEVEL ONCE IN A LIFETIME-USE SMARTSET# 41786 Completed 06/23/2018, 07/24/2016, 02/05/2015 Influenza Vaccine (FLU [...] as of this encounter Visit Diagnoses Diagnosis Hypothyroidism, unspecified type documented in this encounter Advance Directives Documents on File Type Date Recorded 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 Yes, in chart and reviewed as current [...] Advance Directives occurred with: Patient Care Teams Healthcare Facility Administrator Relationship Specialty Start Date End Date Moris Dodd PA-C [address] [place] [address] [place] [id number] PCP - General Physician Battery Plate Remover 09/14/23 documented as of this encounter
--- OUTSIDE RECORDS SUMMARY | 2023-12-24 17:43 | External Medical Summary | Summary of Care ---
Author Name Unknown Organization [facility] Address [address] [facility] [place] [address] Phone [phone] Care Team Providers Care Uptwist Spinner Name Role Phone Brian Muniz MD Primary Care Provide r Reason for Visit * Reason Onset Date Comments Medication Refill 05/07/2023 Encounter Details Date Type Department Care Team (Late st Contact Info) Description 05/07/2023 Refill Family Medicine [address] [id number] Brian Muniz MD [address] [place] [address] [place] [id number] Secondary parkinsonism (HCC); Bipolar 2 disorder, major depressive episode (HCC); Lumbar radiculopathy; S/P laminectomy Allergies Active Allergy Reactions Criticality Noted Date Comments Alendronic Acid 08/04/2013 Nausea, vomiting, also on celebrex and plavix Ampicillin Hives 09/19/2011 Celecoxib 08/04/2013 Nausea, vomiting while on plavix Codeine Other (Please comment) 09/19/2011 Projectile vomiting Morphine Other (Please comment) 09/19/2011 Vomiting Niacin Er Hives 09/19/2011 Penicillins 08/08/2002 rash Procainamide Rash 09/19/2011 Tramadol Nausea/vomiting High 03/27/2016 documented as of this encounter (statuses as of 07/27/2023) Medications Medication Sig Dispensed Refills Start Date End Date Status ASPIRIN 81 MG PO TABS daily 0 Active nitroglycerin (NITROSTAT) 0.[address] 1 Tab under the tongue every 5 minutes as needed for Pain, Chest. For up to 3 doses in 15 minutes. 15 Tab 3 07/26/2014 Active docusate sodium (COLACE) 100 MG CapsuleIndications :Constipation, unspecified constipation type TAKE 1 CAP BY MOUTH 2 TIMES A DAY. 60 Cap 11 10/22/2016 Active [place]-3 Fatty Acids (FISH OIL) 1200 MG CAPSIndications:1 capsule 2 times a day Take by mouth. 0 Active Cholecalciferol (VITAMIN D) 2000 units Tablet Take 2,000 Units by mouth daily. 0 Active saline (OCEAN) 0.65 % nasal spray OK for her to keep in her room to use as needed 30 mL 12 06/23/2018 Active Betamethasone Dipropionate 0.05 % ointmentIndication s:Lichenification Apply 2x daily to area on scalp (or more if itchy instead of scratching) until improved/resolve d 50 g 0 11/30/2019 Active Vitamin B-12 1000 MCG Oral [...] hours as needed for Nausea. 20 Tablet 0 06/17/2021 Active Premarin 0.625 MG/GM Vaginal Cream [...] at bedtime. 30 Tablet 5 03/18/2022 Active DULoxetine HCl 60 MG Oral Capsule Delayed Release Particles (Cymbalta) TAKE 1 CAPSULE BY MOUTH EACH MORNING 30 Capsule 5 02/12/2023 Active Donepezil HCl 5 MG Oral Tablet (Aricept) Take with largest meal of the day. 90 Tablet 1 02/27/2023 Active Losartan Potassium 25 MG Oral Tablet [...] FOR PARKINSONS 90 Tablet 5 05/07/2023 Active Alston Carbonate ER 300 MG Oral Tablet Extended [...] before bedtime. 90 Capsule 5 05/07/2023 Active Famotidine 20 MG Oral Tablet (Pepcid)Indication s:Gastroesophageal reflux disease without esophagitis Take 1 Tablet by mouth every night at bedtime. 90 Tablet 1 03/19/2022 4 Discontinue d(Refill) Oxybutynin Chloride 5 MG Oral Tablet (Ditropan)Indicati ons:Urge incontinence of urine Take 1 Tablet by mouth in the morning and 1 Tablet before bedtime. 60 Tablet 5 09/16/2022 4 Discontinue d(Refill) Gabapentin 300 MG Oral Capsule (Neurontin)Indicat ions:Lumbar radiculopathy,S/P laminectomy Take 1 Capsule by mouth in the morning and 1 Capsule at noon and 1 Capsule before bedtime. 90 Capsule 5 10/16/2022 4 Discontinue d(Refill) Carbidopa-Levodopa 25-100 MG Oral Tablet (Sinemet)Indicatio ns:Secondary parkinsonism (HCC) TAKE 1 TABLET BY MOUTH THREE TIMES DAILY FOR PARKINSONS 90 Tablet 5 10/16/2022 4 Discontinue d(Refill) QUEtiapine Fumarate 200 MG Oral Tablet (SEROquel) TAKE ONE TABLET BY MOUTH AT BEDTIME NIGHTLY. FOR DEPRESSION 30 Tablet 3 02/27/2023 4 Discontinue d(Refill) Alston Carbonate ER 300 MG Oral Tablet Extended Release (Lithobid ER)Indications:Bip olar 2 disorder, major depressive episode (HCC) TAKE 1 TABLET BY MOUTH AT BEDTIME NIGHTLY. FOR BIPOLAR DISORDER 30 Tablet 1 02/27/2023 4 Discontinue d(Refill) Levothyroxine Sodium 75 MCG Oral Tablet (Levoxyl)Indicatio ns:Hypothyroidism, unspecified type TAKE ONE TABLET BY MOUTH EACH MORNING 30 MINUTES PRIOR TO BREAKFAST OR OTHER MEDS *FOR HYPOTHYROIDISM* 90 Tablet 0 03/13/2023 4 Discontinue d(Refill) Atorvastatin Calcium 80 MG Oral Tablet (Lipitor)Indicatio ns:Hyperlipidemia with target LDL less than 70 Take 1 Tablet by mouth every night at bedtime. 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 1 05/13/2020 At risk for falls 2021 Skin ulcer of scalp, limited to breakdown of ski n 04/13/2020 Resides in [facility] care facility 10/04/2019 Advanced directives, counseling/discussion 10/03 History of MD (myocardial infarction) 09/29/2019 Osteoporosis, 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 Coronary arteriosclerosis in [place] artery 04/05 Hypertensive kidney disease with chronic [...] as of this encounter (statuses as of 07/27/2023) Resolved Problems Problem Noted Date Diagnosed Date [...] lumbosacral neuritis 08/08/2002 12/06/2014 Coronary atherosclerosis of [place] coronary artery 04/05/2019 Hyperlipidemia with target LDL less than 100 12/28/2012 Overview: ICD-10 update of inactive term documented as of this encounter (statuses as of 07/27/2023) Immunizations Name Administration Dates Next Due COVID-19 [...] encounter Miscellaneous Notes * Telephone Encounter - Kellee Justin OSA - 07/27/2023 10:33 AM EDTSigned Prescriptions: Disp Refills Carbidopa-Levodopa 25-100 MG Oral Tablet (*90 Tab*5 Sig: TAKE 1TABLET BY MOUTH THREE TIMES DAILY FOR PARKINSONSAuthorizing Provider: BRIAN MUNIZ Alston Carbonate ER 300 MG Oral Tablet Ex*30 Tab*5 Sig: TAKE 1 TABLET BY MOUTH AT BEDTIME NIGHTLY. FOR BIPOLAR DISORDERAuthorizing Provider: BRIAN MUNIZ Gabapentin 300 MG Oral Capsule (Neurontin) 90 Cap*5 Sig: Take 1 Capsule by mouth in the morning and 1 Capsule at noon and 1 Capsule before bedtime.Authorizing Provider: BRIAN MUNIZ * Telephone Encounter - Kellee Justin OSA - 07/27/2023 10:32 AM EDT I left message on patient's daughter, JON Frank to call me (RE: Dr Muniz last saw this patient on 10/31/2021, She is in [employer] personal retirement, she no showed for 2 appts in 2022. will you still write for these meds? Lluvia, please contact patient to set up an appt with Dr Muniz for ongoing care * Telephone Encounter - Edilia Hamm RN - 05/07/2023 10:44 AM ESTPending Prescriptions: Disp Refills Carbidopa-Levodopa 25-100 MG Oral Tablet (*90 Tab*5 Sig: TAKE 1 TABLET BY MOUTH THREE TIMES DAILY FOR PARKINSONS Alston Carbonate ER 300 MG Oral Tablet Ex*30 Tab*5 Sig: TAKE 1 TABLET BY MOUTH AT BEDTIME NIGHTLY. FOR BIPOLAR DISORDER Gabapentin 300 MG Oral Capsule (Neurontin) 90 Cap*5 Sig: Take 1 Capsule by mouth in the morning and 1 Capsule at noon and 1 Capsule before bedtime. * Telephone Encounter - Edilia Hamm RN - 05/07/2023 10:[address] Muniz last saw this patient on 10/31/2021, She is in [facility] personal retirement, she no showed for 2 appts in 2022. will you still write for these meds? Lluvia, please contact patient to set up an appt with Dr Muniz for ongoing care * Telephone Encounter - Monika Mendenhall OSA - 05/07/2023 10:34 AM EST Did you pend patient's preferred pharmacy and medication before forwarding?yes Pharmacy: [facility] Pending Prescriptions: Disp Refills Carbidopa-Levodopa 25-100 MG Oral Tablet *90 Tab*5 Sig: TAKE 1 TABLET BY MOUTH THREE TIMES DAILY FOR PARKINSONS Alston Carbonate ER 300 MG Oral Tablet E*30 Tab*1 Sig: TAKE 1 TABLET BY MOUTH AT BEDTIME NIGHTLY. FOR BIPOLAR DISORDER Gabapentin 300 MG Oral Capsule (Neurontin)90 Cap*5 Sig: Take 1 Capsule by mouth in the morning and 1 Capsule at noon and 1 Capsule before bedtime. Last Visit: 11/20/2021 (in office), 06/14/2021 (telemedicine) Next Visit: Visit date not found If no future appointments scheduled, and last appointment is greater than a year ago, please schedule patient for a follow-up appointment Last date the medication was ordered: 10/16/22 Is this request for a controlled substance?No [...] 07/10/2023 07/09/2022, 02/27 CKD HGB USE SMARTSET 02420 07/10/202307/09, 09/26/2021, 09/26/2021, Additional history exists CKD PHOS USE SMARTSET 21178 07/10/202306/28, 04/13/2020, 03/11/2019 TSH 07/10/2023 07/09/2022, 08/30, 10/11/2020, Additional history exists Influenza Vaccine (FLU shot) (Season Ended) 2023 01/20/2022, 2021, 12/29/2019, Additional history exists Pneumococcal Vaccine: 65+ Years Completed 12/08/2016, 06/01/2009 VITAMIN D LEVEL ONCE IN A LIFETIME-USE SMARTSET# [id number] Completed 06/23/2018, 07/24/2016, 02/05/2015 GARDASIL-HPV IMMUNIZATION SERIES [...] as of this encounter Visit Diagnoses Diagnosis Secondary parkinsonism (HCC) Secondary Parkinsonism Bipolar 2 disorder, major depressive episode (HCC) Other bipolar disorders Lumbar radiculopathy Thoracic or lumbosacral neuritis or radiculitis, unspecified S/P laminectomy Other postprocedural status documented in this encounter Advance Directives Documents on File Type Date Recorded Patient General Ophthalmologist Expl anation POLST 10/31/2021 [place] OR DERS FOR LIFE-SUSTAINING TREATMENT POLST 10/04/2019 POLST [place]A SOREN ORDERS FOR LIFE-SUSTAINING TREATMENT Power of Seed Service Advisor 03/24/2016 POWER OF A [place] DURABLE HEALTH CARE POWER OF SENIOR ACCOUNTING ANALYST Advance Directives and Living Will 09/25/2015 ADVANCE DIRECTIVE Latest Code Status on File Code Status Date Activated Date Inactivated Comments Limited Code 09/15/2016 2:01 PM 09/18/2016 4:06 PM This order reflects the patients wishes and were consensually agreed upon. Question Answer Comments Discussion of Advance Directives occurred with: Patient Does the patient have a Living Will? Yes, in chart and reviewed as current Does the patient have Health Care Power of Seed Service Advisor? Yes, in chart and reviewed as current Bag Valve Device? Yes Intubation? Yes Cardiac Compressions? No Defibrillation? No Synchronized Cardioversion? No External Pacemaker? No Cardiac Drugs? No Code Status History Code Status Date Activated Date Inactivated Comments Full Code 05/23/2016 1:29 AM 05/29/2016 6:21 PM This o rder reflects the patients wishes and were consensually agreed upon. Question Answer Comments Discussion of Advance Directives occurred with: Patient Does the patient have a Living Will? No Does the patient have Health Care Power of Seed Service Advisor? No Full Code 03/24/2016 2:57 PM 03/28/2016 10:21 PM Th is order reflects the patients wishes and were consensually agreed upon. Question Answer Comments Discussion of Advance Directives occurred with: Patient Does the patient have a Living Will? No Does the patient have Health Care Power of Seed Service Advisor? No Full Code 08/23/2014 2:24 PM 08/24/2014 5:25 PM This order reflects the patients wishes and were consensually agreed upon. Question Answer Comments Discussion of Advance Directives occurred with: Not Discussed Does the patient have a Living Will? No Does the patient have Health Care Power of Seed Service Advisor? No Full Code 07/20/2014 1:25 AM 07/23/2014 6:42 PM This order reflects the patients wishes and were consensually agreed upon. Question Answer Comments Discussion of Advance Directives occurred with: Patient Care Teams Uptwist Spinner Relationship Specialty Start Date End Date Brian Muniz MD [address] [place] [address] [place] [id number] PCP - General Family Medicine 11/18/21 documented as of this encounter
--- OUTSIDE RECORDS SUMMARY | 2023-12-24 17:43 | External Medical Summary | Summary of Care ---
Author Name Unknown Organization [facility] Address [address] [facility] [place] [address] Phone [phone] Care Team Providers Care Dormitory Keeper Name Role Phone Brian Muniz MD Primary Care Provide r Reason for Visit * Reason Comments eRx-Medication Refill Encounter Details Date Type Department Care Team (Late st Contact Info) Description 08/11/2023 Refill Family Medicine [address] [phone] Deandra Prater MD [address] [place] [address] ALAINA Tapia [address] Allergies Active Allergy Reactions Criticality Noted Date Comments Alendronic Acid 08/04/2013 Nausea, vomiting, also on celebrex and plavix Ampicillin Hives 09/19/2011 Celecoxib 08/04/2013 Nausea, vomiting while on plavix Codeine Other (Please comment) 09/19/2011 Projectile vomiting Morphine Other (Please comment) 09/19/2011 Vomiting Niacin Er Hives 09/19/2011 Penicillins 08/08/2002 rash Procainamide Rash 09/19/2011 Tramadol Nausea/vomiting High 03/27/2016 documented as of this encounter (statuses as of 08/12/2023) Medications Medication Sig Dispensed Refills Start Date End Date Status ASPIRIN 81 MG PO TABS daily 0 Active nitroglycerin (NITROSTAT) 0.[address] 1 Tab under the tongue every 5 minutes as needed for Pain, Chest. For up to 3 doses in 15 minutes. 15 Tab 3 07/26/2014 Active docusate sodium (COLACE) 100 MG CapsuleIndication s:Constipation, unspecified constipation type TAKE 1 CAP BY MOUTH 2 TIMES A DAY. 60 Cap 11 10/22/2016 Active [place]-3 Fatty Acids (FISH OIL) 1200 MG CAPSIndications:1 capsule 2 times a day Take by mouth. 0 Active Cholecalciferol (VITAMIN D) 2000 units Tablet Take 2,000 Units by mouth daily. 0 Active saline (OCEAN) 0.65 % nasal spray OK for her to keep in her room to use as needed 30 mL 12 06/23/2018 Active Betamethasone Dipropionate 0.05 % ointmentIndicatio ns:Lichenificatio n Apply 2x daily to area on scalp (or more if itchy instead of scratching) until improved/resolv ed 50 g 0 11/30/2019 Active Vitamin B-12 1000 MCG Oral TabletIndications :B12 deficiency Take 1 Tab by mouth every other day. 45 Tab 1 04/09/2020 Active Os-Phil Calcium + D3 500-200 MG-UNIT Oral Tablet (Calcium Carb-Cholecalcife rol)Indications:A ge-related osteoporosis without current pathological fracture Take 1 Tab by mouth every other day. with breakfast 90 Tab 3 07/05/2020 Active Alum & Mag Hydroxide-Simeth 200-200-20 MG/5ML Oral SuspensionIndicat ions:Gastroesopha geal reflux disease without esophagitis Take by mouth [...] Active Premarin 0.625 MG/GM Vaginal Cream (Estrogens, Conjugated)Indica tions:Postmenopau elin atrophic vaginitis Insert 1 gram into the vagina at bedtime nightly x 7 days then use 1 gram twice a week 42.5 g 5 07/11/2021 Active Polyethylene Glycol 3350 17 GM/SCOOP Oral Powder (MiraLax)Indicati ons:Constipation, unspecified constipation type Take by mouth 17 g as needed for Constipation. Dissolve one heaping tablespoon in 8 ounces of water or juice. 116 g 5 07/22/2021 Active guaiFENesin ER 600 MG Oral Tablet Extended Release 12 Hour (Mucinex)Indicati ons:Acute cough Take by mouth 1 Tablet 2 times a day as needed for Congestion. Take with plenty of water. Do not cut, crush or chew 40 Tablet 2 09/26/2021 Active Acetaminophen 500 MG Oral Tablet (Tylenol Extra Strength)Indicati ons:1 pill 4 times a day as needed for pain Take by mouth 1 Tablet every 6 hours as needed for Pain, Mild. 100 Tablet 1 10/02/2021 Active Meclizine HCl 25 MG Oral Tablet (Antivert)Indicat ions:Vertigo Take by mouth 1 Tablet 2 times a day as needed for Dizziness. Take by mouth twice a day; she may have one additional tablet as needed for dizziness 90 Tablet 5 10/31/2021 Active Esomeprazole Magnesium 40 MG Oral Capsule Delayed ReleaseIndication s:Gastroesophagea l reflux disease without esophagitis TAKE 1 CAPSULE BY MOUTH ONCE DAILY *DO NOT CRUSH OR CHEW* 90 Capsule 2 03/06/2022 Active Loratadine 10 MG Oral Tablet (Claritin) Take 1 Tablet by mouth every night at bedtime. 30 Tablet 5 03/18/2022 Active DULoxetine HCl 60 MG Oral Capsule Delayed Release Particles (Cymbalta) TAKE 1 CAPSULE BY MOUTH EACH MORNING 30 Capsule 5 02/12/2023 Active Losartan Potassium 25 MG Oral Tablet (Cozaar)Indicatio ns:HTN, goal below 140/90 Take 1 Tablet by mouth in the morning. 90 Tablet 2 03/13/2023 Active Diclofenac Sodium 1 % External Gel (Voltaren) APPLY 2 GRAM TOPICALLY TO AFFECTED AREA twice a day *MAX-DOSE 32GM TOTAL BODY* LOWER MAX-16GM/JOINT/ DAY* UPPER MAX-8GM/JOINT/D AY* *SELF ADMINISTER* 100 g 3 04/13/2023 Active Carbidopa-Levodop a 25-100 MG Oral Tablet (Sinemet)Indicati ons:Secondary parkinsonism (HCC) TAKE 1 TABLET BY MOUTH THREE TIMES DAILY FOR PARKINSONS 90 Tablet 5 05/07/2023 Active [place] Carbonate ER 300 MG Oral Tablet Extended Release (Lithobid ER)Indications:Bi polar 2 disorder, major depressive episode (HCC) TAKE 1 TABLET BY MOUTH AT BEDTIME NIGHTLY. FOR BIPOLAR DISORDER 30 Tablet 5 05/07/2023 Active Gabapentin 300 MG Oral Capsule (Neurontin)Indica tions:Lumbar radiculopathy,S/P laminectomy Take 1 Capsule by mouth in the morning and 1 Capsule at noon and 1 Capsule before bedtime. 90 Capsule 5 05/07/2023 Active oxyBUTYnin Chloride 5 MG Oral Tablet (Ditropan)Indicat ions:Urge incontinence of urine Take 1 Tablet by mouth in the morning and 1 Tablet before bedtime. 180 Tablet 0 06/10/2023 Active Levothyroxine Sodium 75 MCG Oral Tablet (Levoxyl)Indicati ons:Hypothyroidis m, unspecified type TAKE ONE TABLET BY MOUTH EACH MORNING 30 MINUTES PRIOR TO BREAKFAST OR OTHER MEDS *FOR HYPOTHYROIDISM* 90 Tablet 0 06/10/2023 Active Atorvastatin Calcium 80 MG Oral Tablet (Lipitor)Indicati ons:Hyperlipidemi a with target LDL less than 70 Take 1 Tablet by mouth every night at bedtime. 90 Tablet 0 06/10/2023 Active Famotidine 20 MG Oral Tablet (Pepcid)Indicatio ns:Gastroesophage al reflux disease without esophagitis Take 1 Tablet [...] THE DAY. 30 Tablet 5 08/12/2023 Active Donepezil HCl 5 MG Oral Tablet (Aricept) Take with largest meal of the day. 90 Tablet 1 02/27/2023 Discontinued QUEtiapine Fumarate 200 MG Oral Tablet (SEROquel) TAKE ONE TABLET BY MOUTH AT BEDTIME NIGHTLY. 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 Coronary arteriosclerosis in [place] artery 04/05 Hypertensive kidney disease with chronic [...] as of this encounter (statuses as of 08/12/2023) Resolved Problems Problem Noted Date Diagnosed Date [...] lumbosacral neuritis 08/08/2002 12/06/2014 Coronary atherosclerosis of [place] coronary artery 04/05/2019 Hyperlipidemia with target LDL less than 100 12/28/2012 Overview: ICD-10 update of inactive term documented as of this encounter (statuses as of 08/12/2023) Immunizations Name Administration Dates Next Due COVID-19 [...] Telephone Encounter - Brian Muniz MD - 08/12/2023 7:29 AM EDT Signed Prescriptions: Disp Refills QUEtiapine Fumarate 200 MG Oral Tablet (SE*30 Tab*5 Sig: TAKE ONE TABLET BY MOUTH AT BEDTIME NIGHTLY. FOR DEPRESSION Authorizing Provider: BRIAN MUNIZ Donepezil HCl 5 MG Oral Tablet (Aricept) 30 Tab*5 Sig: TAKE WITH LARGEST MEAL OF THE DAY. Authorizing Provider: BRIAN MUNIZ * Telephone Encounter - Edilia Hamm, RN - 08/12/2023 7:15 AM EDTPending Prescriptions: Disp Refills QUEtiapine Fumarate 200 MG Oral Tablet (SE*30 Tab*5 Sig: TAKE ONE TABLET BY MOUTH AT BEDTIME NIGHTLY. FOR DEPRESSION Donepezil HCl 5 MG Oral Tablet (Aricept) 30 Tab*5 Sig: TAKE WITH LARGEST MEAL OF THE DAY. * Telephone Encounter - Edilia Hamm, MERRITT - 08/12/2023 7:15 AM EDT Pending Prescriptions: Disp Refills QUEtiapine Fumarate 200 MG Oral Tablet (S*30 Tab*5 Sig: TAKE ONE TABLET BY MOUTH AT BEDTIME NIGHTLY. FOR DEPRESSION Donepezil HCl 5 MG Oral Tablet (Aricept) *30 Tab*5 Sig: TAKE WITH LARGEST MEAL OF THE DAY. Last Visit: 11/20/2021 (in office), 06/14/2021 (telemedicine) Next Visit: Visit date not found Last date the medication was ordered: 06/19 Patient Active Problem List Diagnosis Code Postsurgical percutaneous transluminal coronary angioplasty (PTCA) status Z98.61 Parkinson disease (HCC) G20.A1 Bipolar 2 disorder, major depressive episode (HCC) F31.81 Hypothyroidism E03.9 Obstructive sleep apnea of adult G47.33 Hyperlipidemia with target LDL less than 70 E78.5 Lumbar radiculopathy M54.16 Peripheral neuropathy (HCC) G62.9 Mild episode of recurrent major depressive disorder ([facility]) F33.0 Gastroesophageal reflux disease without esophagitis K21.9 HTN, goal below 140/90 I10 BPPV (benign paroxysmal positional vertigo) H81.10 S/P laminectomy Z98.890 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, F02.80 Overweight (BMI 25.0-29.9) E66.3 Vitamin D deficiency E55.9 B12 deficiency E53.8 Hypertensive kidney disease with chronic kidney disease stage III ([facility]) I12.9, N18.30 Osteoporosis, 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 in [place] artery I25.10 History of AL (myocardial infarction) I25.2 Resides in penitentiary care facility Z78.9 Advanced directives, counseling/discussion Z71.89 Skin ulcer of scalp, limited to breakdown of skin ([facility]) L98.491 Chronic midline low back pain without sciatica M54.50, G89.29 At risk for falls Z91.81 Labs: Lab Results Component Value Date/Time CREAT GFR 0.80 09/17/2016 05:00 AM CREATININE - [facility] 0.9 09/26/2021 01:32 PM CREATININE - [facility] 0.9 04/13/2020 02:40 PM CREATININE, RANDOM URINE - [facility] 194 03/11/2019 01:57 PM CREATININE-OUTSIDE [facility] 0.90 07/09/2022 12:00 AM Lab Results Component Value Date/Time POTASSIUM - [facility] 5.0 09/26/2021 01:32 PM POTASSIUM - [facility] 4.2 04/13/2020 02:40 PM POTASSIUM-OUTS[facility] LAB 4.3 07/09/2022 12:00 AM Lab Results Component Value Date/Time TSH - [facility] 1.27 09/26/2021 01:32 PM TSH - [facility] 1.13 04/13/2020 02:40 PM TSH - OUTSIDE LAB 2.110 07/09/2022 12:00 AM Lab Results Component Value Date/Time LDL (CALCULATED)-[facility] 49.40 07/09/2022 12:00 AM LDL (DIRECT MEASURE)-[facility] 66 07/09/2022 12:00 AM LDL CHOLESTEROL (CALCULATED) - [facility] 50 09/26/2021 01:32 PM LDL CHOLESTEROL (CALCULATED) - [facility] 66 06/23/2018 03:20 PM LDL CHOLESTEROL (CALCULATED) - [facility] 71 07/24/2016 11:47 AM LDL CHOLESTEROL (DIRECT MEASURE) - [facility] 65 04/13/2020 02:40 PM LDL CHOLESTEROL (DIRECT MEASURE) - [facility] NOT APPLICABLE 06/23/2018 03:20 PM Lab Results Component Value Date/Time ALT - [facility] 12 09/26/2021 01:32 PM ALT - [facility] 12 04/13/2020 02:40 PM Hemoglobin AIC Results: Lab Results Component Value Date/Time HEMOGLOBIN A1C - [facility] 5.6 09/26/2021 01:32 PM HEMOGLOBIN A1C - [facility] 4.4 03/28/2016 06:20 AM * Telephone Encounter - Monique Burton - 08/12/2023 4:41 AM EDTPending Prescriptions: Disp Refills QUEtiapine Fumarate 200 MG Oral Tablet [Ph*30 Tab* Sig: TAKE ONE TABLET BY MOUTH AT BEDTIME NIGHTLY. FOR DEPRESSION Donepezil HCl 5 MG Oral Tablet [Pharmacy M*30 Tab* Sig: Take with largest meal of the day. documented in this encounter Plan of Treatment Health Maintenance Due Date Last Done Comments Zoster Vaccines (1 of 2) 1990 DXA Scan 07/14/2020 07/14/2018, 12/29, 05/11/2012 *BISPHONATE OR OTHER ACCEPTABLE MEDICATION NEEDED FOR OSTEOPOROSIS (REFER TO SMARTSET #1146) 05/24/2021 DTaP,Tdap,and Td Vaccines (2 - Td or Tdap) 07/15/2021 07/16/2011 COVID-19 Vaccine (3 - 2023-24 season) 2022 06/16/2020, 05/19/2020 GFR 01/08/2023 07/09/2022, 08/30, 06/07/2021, Additional history exists Albumin/Creatinine Ratio 07/10/2023 07/09/2022, 02/27 CKD HGB USE SMARTSET 72234 07/10/202307/09, 09/26/2021, 09/26/2021, Additional history exists CKD PHOS USE SMARTSET 10529 07/10/202306/28, 04/13/2020, 03/11/2019 TSH 07/10/2023 07/09/2022, 08/30, 10/11/2020, Additional history exists Influenza Vaccine (FLU shot) (Season Ended) 2023 01/20/2022, 2021, 12/29/2019, Additional history exists Pneumococcal Vaccine: 65+ Years Completed 12/08/2016, 06/01/2009 VITAMIN D LEVEL ONCE IN A LIFETIME-USE SMARTSET# 90725 Completed 06/23/2018, 07/24/2016, 02/05/2015 GARDASIL-HPV IMMUNIZATION SERIES [...] Documents on File Type Date Recorded 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 Yes, in chart and reviewed as current [...] the patient have Health Care Power of Armored Machine Operator? No Full Code 03/24/2016 2:57 PM 03/28/2016 10:21 PM Th is order reflects the patients wishes and were consensually agreed upon. Question Answer Comments Discussion of Advance Directives occurred with: Patient Does the patient have a Living Will? No Does the patient have Health Care Power of Armored Machine Operator? No Full Code 08/23/2014 2:24 PM 08/24/2014 5:25 PM This order reflects the patients wishes and were consensually agreed upon. Question Answer Comments Discussion of Advance Directives occurred with: Not Discussed Does the patient have a Living Will? No Does the patient have Health Care Power of Armored Machine Operator? No Full Code 07/20/2014 1:25 AM 07/23/2014 6:42 PM This order reflects the patients wishes and were consensually agreed upon. Question Answer Comments Discussion of Advance Directives occurred with: Patient Care Teams Dormitory Keeper Relationship Specialty Start Date End Date Brian Muniz MD [address] [place] [address] A[place] Tapia [address] PCP - General Family Medicine 11/18/21 documented as of this encounter
--- OUTSIDE RECORDS SUMMARY | 2023-12-24 17:43 | External Medical Summary | Summary of Care ---
Author Name Unknown Organization [facility] Address [address] [facility] [address] Phone [phone] Care Team Providers Care [employer] Principal Name Role Phone Brian Muniz MD Primary Care Provide r Reason for Visit * Reason Comments eRx-Medication Refill Encounter Details Date Type Department Care Team (Late st Contact Info) Description 08/17/2023 Refill Family Medicine [address] [phone] Deandra Prater MD [address] [place] [address] A[place] Tap[place] [address] Hypothyroidism, unspecified type*; Hyperlipidemia with target LDL less than 70; Gastroesophageal reflux disease without esophagitis; HTN, goal below 140/90; Preventative health care; Encounter for long-term (current) use of medications Allergies Active Allergy Reactions Criticality Noted Date Comments Alendronic Acid 08/04/2013 Nausea, vomiting, also on celebrex and plavix Ampicillin Hives 09/19/2011 Celecoxib 08/04/2013 Nausea, vomiting while on plavix Codeine Other (Please comment) 09/19/2011 Projectile vomiting Morphine Other (Please comment) 09/19/2011 Vomiting Niacin Er Hives 09/19/2011 Penicillins 08/08/2002 rash Procainamide Rash 09/19/2011 Tramadol Nausea/vomiting High 03/27/2016 documented as of this encounter (statuses as of 08/19/2023) Medications Medication Sig Dispensed Refills Start Date [...] A DAY. 60 Cap 11 10/22/2016 Active [place]-3 Fatty Acids (FISH OIL) 1200 MG CAPSIndications:1 [...] of scratching) until improved/resolv ed 50 g 11/30/2019 Active Vitamin B-12 1000 [...] FOR PARKINSONS 90 Tablet 5 05/07/2023 Active [place] Carbonate ER 300 MG Oral Tablet Extended [...] MOUTH EACH MORNING 30 Capsule 08/19/2023 Active DULoxetine HCl 60 MG Oral Capsule Delayed Release Particles (Cymbalta) TAKE 1 CAPSULE BY MOUTH EACH MORNING 30 Capsule 5 02/12/2023 Discontinued documented as of this encounter (statuses as of 08/19/2023) Active Problems Problem Noted Date Diagnosed Date Chronic midline low back pain without sciatica 1 05/13/2020 At risk for falls 2021 Skin ulcer of scalp, limited to breakdown of ski n 04/13/2020 [facility]ides in [facility] 10/04/2019 Advanced directives, counseling/discussion 10/03 History of [place] (myocardial infarction) 09/29/2019 Osteoporosis, 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 Coronary arteriosclerosis in [place] artery 04/05 Hypertensive kidney disease with chronic [...] as of this encounter (statuses as of 08/19/2023) Resolved Problems Problem Noted Date Diagnosed Date [...] lumbosacral neuritis 08/08/2002 12/06/2014 Coronary atherosclerosis of [place] coronary artery 04/05/2019 Hyperlipidemia with target LDL less than 100 12/28/2012 Overview: ICD-10 update of inactive term documented as of this encounter (statuses as of 08/19/2023) Immunizations Name Administration Dates Next Due COVID-19 [...] Telephone Encounter - Brian Muniz MD - 08/19/2023 7:40 AM EDT Signed Prescriptions: Disp Refills DULoxetine HCl 60 MG Oral Capsule Delayed *30 Cap*0 Sig: TAKE ONE CAPSULE BY MOUTH EACH MORNING Authorizing Provider: BRIAN MUNIZ * Telephone Encounter - Nina Escobar vein pumper - 08/18/2023 3:36 PM EDTPending Prescriptions: Disp Refills DULoxetine HCl 60 MG Oral Capsule Delayed *30 Cap*0 Sig: TAKE ONE CAPSULE BY MOUTH EACH MORNING * Telephone Encounter - Nina Escobar PHARM Tech - 08/18/2023 3:36 PM EDT Received message from [facility] regarding patient needing appointment and labs. Call Placed, Pt was agreeable to set up appointment but did not want to schedule at this time. Patient advised they will callback to set up appointment. Appliance Technician where pt is staying will call back to schedule. Thank you, Nina Escobar [facility] Mobile Sales Technician II [facility] ([facility]) 08/18/2023,3:36 PM * Telephone Encounter - Gilbert Sims [facility] - 08/18/2023 2:04 PM EDT Pending Prescriptions: Disp Refills DULoxetine HCl 60 MG Oral Capsule Delayed *30 Cap*0 Sig: TAKE ONE CAPSULE BY MOUTH EACH MORNING Electronically signed by Gilbert Sims [facility] at 08/18/2023 2:04 PM EDT * Telephone Encounter - Gilbert Sims RPh - 08/18/2023 1:57 PM EDT Unable to authorize medication refills for pended medication(s) at this time. Per refill protocol patient should have OV with PCP and ROUTINE LABS on file within past year. Reviewed AMP report, Care Gaps/Health Maintenance, medications list, and for any routine labs typically ordered for this patient. Lab orders placed. Please contact patient to schedule office visit with PRIMARY CARE and advise of labs ordered for blood draw AND URINE specimen (patient will have to be able to void to provide sample).. Recommend patient to fast if able for labs. Patient may still have water and regular medications. Advise to obtain labs before requesting the next refill. Last Visit: 11/20/2021 (in office), 06/14/2021 (telemedicine) Next Visit: Visit date not found Gilbert Morse, MeriD Clinical Pharmacist [facility] ([facility]) [phone] 08/18/2023, 1:59 PM Electronically signed by Gilbert Sims [facility] at 08/18/2023 2:04 PM EDT documented in this encounter Plan of Treatment Scheduled Orders Name Type Priority Associated Diagnoses Orde r Schedule CBC Lab Routine Encounter for long-term (current) use of medications Expected: 08/25/2023 (Approximate), Expires: 08/17/2024 COMPREHENSIVE METABOLIC PANEL Lab Routine HTN, goal below 140/90 Expected: 08/25/2023 (Approximate), Expires: 08/17/2024 LIPID PANEL WITH DIRECT LDL IF TG IS HIGH Lab Routine Hyperlipidemia with target LDL less than 70 Encounter for long-term (current) use of medications Expected: 08/25/2023 (Approximate), Expires: 08/17/2024 TSH WITH FREE T4 IF INDICATED Lab Routine Hypothyroidism, unspecified type Encounter for long-term (current) use of medications Expected: 08/25/2023 (Approximate), Expires: 08/17/2024 VITAMIN B12 Lab Routine Gastroesophageal reflux disease without esophagitis Encounter for long-term (current) use of medications Expected: 08/25/2023 (Approximate), Expires: 08/17/2024 MAGNESIUM Lab Routine Gastroesophageal reflux disease without esophagitis Encounter for long-term (current) use of medications Expected: 08/25/2023 (Approximate), Expires: 08/17/2024 ALBUMIN / CREATININE RATIO, URINE Lab Routine Preventative health care Expected: 08/25/2023, Expires: 08/17/2024 PHOSPHORUS Lab Routine Preventative health care Expected: 08/25/2023 (Approximate), Expires: 08/17/2024 Health Maintenance Due Date Last Done Comments [...] 07/10/2023 07/09/2022, 02/27 CKD HGB USE SMARTSET 64541 07/10/202307/09, 09/26/2021, 09/26/2021, Additional history exists CKD PHOS USE SMARTSET 89200 07/10/202306/28, 04/13/2020, 03/11/2019 TSH 07/10/2023 07/09/2022, 08/30, 10/11/2020, Additional history exists Influenza Vaccine (FLU shot) (Season Ended) 2023 01/20/2022, 2021, 12/29/2019, Additional history exists Pneumococcal Vaccine: 65+ Years Completed 12/08/2016, 06/01/2009 VITAMIN D LEVEL ONCE IN A LIFETIME-USE SMARTSET# 10729 Completed 06/23/2018, 07/24/2016, 02/05/2015 GARDASIL-HPV IMMUNIZATION SERIES [...] this encounter Visit Diagnoses Diagnosis Hypothyroidism, unspecified type- Primary Hyperlipidemia with target LDL less than 70 Other and unspecified hyperlipidemia Gastroesophageal reflux disease without esophagitis Esophageal reflux HTN, goal below 140/90 Unspecified essential hypertension Preventative health care Routine general medical examination at a health care facility Encounter for long-term (current) use of medications Encounter for long-term (current) use of other medications documented in this encounter Advance Directives Documents on File Type Date Recorded Patient Client Hr Manager Expl anation POLST 10/31/2021 [place] OR DERS FOR LIFE-SUSTAINING TREATMENT POLST 10/04/2019 POLST [facility] ORDERS FOR LIFE-SUSTAINING TREATMENT Power of Credit Consultant 03/24/2016 POWER OF A TTORNEY DURABLE HEALTH CARE POWER OF WASTEWATER TECHNICIAN Advance Directives and Living Will 09/25/2015 [...] the patient have Health Care Power of Credit Consultant? Yes, in chart and reviewed as current [...] Advance Directives occurred with: Patient Care Teams [employer] Principal Relationship Specialty Start Date End Date Brian Muniz MD [address] [place] [address] A[place] Tap[place] [address] PCP - General Family Medicine 11/18/21 documented as of this encounter
--- OUTSIDE RECORDS SUMMARY | 2023-12-24 17:43 | External Medical Summary | Summary of Care ---
Author Name Unknown Organization [facility] Address [address] [facility] [place] [address] Phone [phone] Care Team Providers Care Keg Filler Name Role Phone Brian Muniz MD Primary Care Provide r Reason for Visit * Reason Comments eRx-Medication Refill Encounter Details Date Type Department Care Team (Late st Contact Info) Description 08/17/2023 Refill Family Medicine [address] [id number] Deandra Prater MD [address] [place] [address] ALAINA Tapia [address] Hypothyroidism, unspecified type*; Hyperlipidemia [...] as of this encounter (statuses as of 08/20/2023) Medications Medication Sig Dispensed Refills Start Date [...] A DAY. 60 Cap 11 10/22/2016 Active [place]-3 Fatty Acids (FISH OIL) 1200 MG CAPSIndications:1 [...] FOR PARKINSONS 90 Tablet 5 05/07/2023 Active [place] Carbonate ER 300 MG Oral Tablet Extended [...] MOUTH EACH MORNING 30 Capsule 5 02/12/2023 4 Discontinued documented as of this encounter (statuses as of 08/20/2023) Active Problems Problem Noted Date Diagnosed Date Chronic midline low back pain without sciatica 1 05/13/2020 At risk for falls 2021 Skin ulcer of scalp, limited to breakdown of ski n 04/13/2020 Resides in long-term care facility 10/04/2019 Advanced directives, counseling/discussion 10/03 History of [place] (myocardial infarction) 09/29/2019 Osteoporosis, 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 Coronary arteriosclerosis in [place] artery 04/05 Hypertensive kidney disease with chronic [...] as of this encounter (statuses as of 08/20/2023) Resolved Problems Problem Noted Date Diagnosed Date [...] lumbosacral neuritis 08/08/2002 12/06/2014 Coronary atherosclerosis of [place] coronary artery 04/05/2019 Hyperlipidemia with target LDL less than 100 12/28/2012 Overview: ICD-10 update of inactive term documented as of this encounter (statuses as of 08/20/2023) Immunizations Name Administration Dates Next Due COVID-19 [...] encounter Miscellaneous Notes * Telephone Encounter - Narayan Ibarra CPhT - 08/20/2023 9:53 AM EDT [facility] called asking why Mildred had reached out regarding appt and labs. Advised that notification came up when refilling Duloxetine Rx. Advised that we had last seen pt on 11/20/2021. Mario verbalized understanding and stated that is because Dr. Yann Dodd is now her PCP. [facility] stated they will reach out the pharmacy and make sure the proper PCP is on file forfuture fills. Thank you, Narayan Ibarra Drum Stock Clerk [facility] ([facility] (Formerly [facility]) 08/20/2023,9:58 AM * Telephone Encounter - Brian Muniz MD - 08/19/2023 7:40 AM EDT Signed Prescriptions: Disp Refills DULoxetine HCl 60 MG Oral Capsule Delayed *30 Cap*0 Sig: TAKE ONE CAPSULE BY MOUTH EACH MORNING Authorizing Provider: BRIAN MUNIZ * Telephone Encounter - Nina Escobar helminthology teacher - 08/18/2023 3:36 PM EDTPending Prescriptions: Disp Refills DULoxetine HCl 60 MG Oral Capsule Delayed *30 Cap*0 Sig: TAKE ONE CAPSULE BY MOUTH EACH MORNING * Telephone Encounter - Nina Escobar helminthology teacher - 08/18/2023 3:36 PM EDT Received message from [facility] regarding patient needing appointment and labs. Call Placed, Pt was agreeable to set up appointment but did not want to schedule at this time. Patient advised they will callback to set up appointment. [facility] where pt is staying will call back to schedule. Thank you, Nina Escobar CPhT Conflict Resolution Professional II [facility] ([facility] ([facility]) 08/18/2023,3:36 PM * Telephone Encounter - Gilbert Sims [facility] - 08/18/2023 2:04 PM EDT Pending Prescriptions: Disp Refills DULoxetine HCl 60 MG Oral Capsule Delayed *30 Cap*0 Sig: TAKE ONE CAPSULE BY MOUTH EACH MORNING * Telephone Encounter - Gilbert Sims RP - 08/18/2023 1:57 PM EDT Unable to [...] (telemedicine) Next Visit: Visit date not found Thanks, Gilbert Sims PharmD Clinical Pharmacist [facility] ([facility] ([facility]) [phone] 08/18/2023, 1:59 PM documented in this encounter Plan of Treatment [...] Tdap) 07/15/2021 07/16/2011 COVID-19 Vaccine (3 - 2022-24 season) 2022 06/16/2020, 05/19/2020 GFR 01/08/2023 07/09/2022, 08/30, 06/07/2021, Additional history exists Albumin/Creatinine Ratio 07/10/2023 07/09/2022, 02/27 CKD HGB USE SMARTSET 45221 07/10/202307/09, 09/26/2021, 09/26/2021, Additional history exists CKD PHOS USE SMARTSET 26984 07/10/202306/28, 04/13/2020, 03/11/2019 TSH 07/10/2023 07/09/2022, 08/30, 10/11/2020, Additional history exists Influenza Vaccine (FLU shot) (Season Ended) 2023 01/20/2022, 2021, 12/29/2019, Additional history exists Pneumococcal Vaccine: 65+ Years Completed 12/08/2016, 06/01/2009 VITAMIN D LEVEL ONCE IN A LIFETIME-USE SMARTSET# [id number] Completed 06/23/2018, 07/24/2016, 02/05/2015 GARDASIL-HPV IMMUNIZATION SERIES [...] Documents on File Type Date Recorded Patient Erp Manager Expl anation POLST 10/31/2021 [place] DERS FOR LIFE-SUSTAINING TREATMENT POLST 10/04/2019 POLST [facility] ORDERS FOR LIFE-SUSTAINING TREATMENT Power of Trial Paralegal 03/24/2016 POWER OF A [place] DURABLE HEALTH CARE POWER OF HELMINTHOLOGY TEACHER Advance Directives and Living Will 09/25/2015 ADVANCE [...] the patient have Health Care Power of Trial Paralegal? Yes, in chart and reviewed as current [...] Advance Directives occurred with: Patient Care Teams Keg Filler Relationship Specialty Start Date End Date Brian Muniz MD [address] [place] [address] [place] Tap[place] [id number] PCP - General Family Medicine 11/18/21 documented as of this encounter
[2023-12-24] MEDS ORDERED: ALUMINUM/MAGNESIUM SUSP 30 ML UDC PO PRN (18:08)
[2023-12-24] MEDS ORDERED: MECLIZINE HCL 25 MG TAB PO PRN (18:15)
[2023-12-24] MEDS: FERROUS SULFATE 325 MG TAB PO SCH (20:09)
[2023-12-24] MEDS: GABAPENTIN 300 MG CAP PO SCH (20:10)
[2023-12-24] MEDS: QUEtiapine FUMARATE 200 MG TAB PO SCH (20:10)
[2023-12-24] MEDS: ATORVASTATIN 40 MG TAB PO SCH (20:10)
[2023-12-24] MEDS: CARBIDOPA/LEVODOPA 25/100MG TAB PO SCH (20:10)
[2023-12-24] MEDS: oxyBUTYnin chloride 5 MG TAB PO SCH (20:10)
[2023-12-24] MEDS: rOPINIRole HCL 0.25 MG TABLET PO SCH (20:11)
[2023-12-24] MEDS: SERTRALINE HCL 50 MG TABLET PO SCH (20:11)
[2023-12-24 20:47] LABS: Appearance Urine Clear (Clear); Bacteria Urine Automated None Seen (None Seen); Bilirubin Urine Negative (Negative); Blood Urine Negative (Negative); Cast Urine Automated 0-2 /lpf (0-2); Color Urine Yellow; Glucose Urine UA Negative (Negative); Ketones Urine Negative (Negative); Leukocyte Esterase Urine 2+ (Negative); Nitrite Urine Negative (Negative); Protein Urine Negative (Negative); RBC Urine Automated 0-2 /hpf (0-2); Specific Gravity Urine 1.015 (1.000-1.030); Urobilinogen Urine Negative (Negative); WBC Urine Automated 21-50 /hpf (0-5)
--- NOTE | 2023-12-24 22:36 | Electrocardiogram Report ---
Test Reason : Blood Pressure : */* mmHG Vent. Rate : 52 BPM Atrial Rate : * BPM P-R Int : * ms QRS Dur : 90 ms QT Int : 380 ms P-R-T Axes : * -54 109 degrees QTcB Int : 353 ms Atrial fibrillation with slow ventricular response Left axis deviation Minimal voltage criteria for LVH, may be normal variant ( R in aVL ) Nonspecific ST and T wave abnormality Abnormal ECG When compared with ECG of 04-Oct-2015 08:46, Atrial fibrillation has replaced Sinus rhythm Non-specific change in ST segment in Lateral leads Nonspecific T wave abnormality no longer evident in Inferior leads Nonspecific T wave abnormality, worse in Lateral leads Confirmed by Johann Montero ([id number]) on 12/24/2023 10:36:29 PM Referred By: REFERRED SELF Confirmed By: Johann Montero
[2023-12-25 00:40] LABS: ANTI-Xa, UFH(UnfractionatedHep 0.59 IU/ml (0.3-0.7)
[2023-12-25] MEDS ORDERED: ATROPINE SULFATE 0.1 MG/ML 10ML SYR IV PRN (03:13)
--- NOTE | 2023-12-25 04:00 | Communication Note ---
Date of Service: December 25, 2023
[2023-12-25] MEDS: LEVOTHYROXINE SODIUM 75 MCG TABLET PO SCH (06:31)
[2023-12-25 06:57] LABS: Hematocrit (blood only) 40.3 % (37.0-47.0); Hemoglobin 12.7 g/dl (12.0-16.0); Mean Corpuscular Hemoglobin 29.9 pg (25.0-34.0); Mean Corpuscular Hgb Conc 31.5 g/dL (32.0-36.0); Mean Corpuscular Volume 94.8 fL (80.0-100.0); Mean Platelet Volume 9.9 fL (9.4-12.4); Platelet Count 271 K/uL (130-400); RDW Coefficient of Variation 13.5 % (11.5-14.5); RDW Standard Deviation 46.6 fL (36.4-46.3); Red Blood Count 4.25 M/uL (4.20-5.40); White Blood Count 7.48 K/ul (4.8-10.8)
[2023-12-25 07:15] LABS: BUN Creatinine Ratio 21.1 (10-20); Calcium 9.4 mg/dl (8.6-10.3); Chol HDL Ratio 2.6 (0-5); Est GFR (African American) 54.4 ml/min; Est GFR (Non-African American) 46.9 ml/min; Potassium 4.2 mmol/L (3.5-5.1)
[2023-12-25 07:21] LABS: Troponin I High Sensitivity 17.5 pg/ml (0-14)
[2023-12-25] MEDS: POLYETHYLENE (MIRALAX) 17 GM PACK PO PRN (08:52)
[2023-12-25] MEDS: PANTOprazole 40 MG TAB PO SCH (08:54)
[2023-12-25] MEDS: DULoxetine HCL 60 MG CAP PO SCH (08:54)
[2023-12-25] MEDS: LOSARTAN POTASSIUM 25 MG TAB PO SCH (08:54)
[2023-12-25] MEDS: DONEPEZIL HCL 5 MG TAB PO SCH (08:54)
[2023-12-25] MEDS: ASPIRIN 81 MG ECTAB PO SCH (08:55)
[2023-12-25] MEDS: FAMOTIDINE 20 MG TAB PO SCH (08:55)
[2023-12-25] MEDS ORDERED: LEVOTHYROXINE SODIUM 75 MCG TABLET PO SCH (09:00)
[2023-12-25] MEDS ORDERED: LITHIUM CARBONATE SLOW REL 300 MG TAB PO SCH (09:00)
--- NOTE | 2023-12-25 11:02 | Cardiology Consultation ---
Date of Consultation December 25, 2023 Assessment & Plan (1) New onset a-fib: (2) Bradycardia: (3) ASCVD (arteriosclerotic cardiovascular disease): (4) HTN (hypertension): (5) Dyslipidemia, goal LDL below 70: (6) Ground-level fall: Plan Atrial fibrillation. Duration unknown. Patient asymptomatic. [id number] Score is at least 4 points. Patient admitted after a unwitnessed fall with a chart history of Parkinson's disease and dementia. 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 Recommend rate control without anticoagulation. Bradycardia. Concern for symptomatic bradycardia and Tachy-Vishal Syndrome noted, possible contributing to the fall. TSH OK. Agree with discontinuation of lithium. Consider Psychiatry evaluation. Untreated sleep apnea may be a contributing factor. Recommend CPAP therapy. Avoid AV teresa blockers. Check EKG's daily. Maintain telemetry. Possible need for permanent pacemaker implantation discussed. Minimally elevated troponin. Known ASCVD. Asymptomatic. TTE pending. Continue medical management with ASA, statin, and ARB. No beta-jalen unless pacemaker in place. Dyslipidemia. Continue high intensity statin therapy. Supervising Physician Co-Signing Physician Notes I have personally performed a history and physical examination on the patient. I have reviewed the advance practitioner's documentation, and I agree with, and take responsibility for the plan of care. 83-year-old female admitted through the emergency department due to unwitnessed fall at [facility]. ECG demonstrating atrial fibrillation 9new diagnos is) with slow ventricular response. Patient is a poor historian, unable to offer meaningful history due to underlying dementia. Denies chest pain or shortness of breath. Patient does not recall events leading up to hospitalization. Continue to monitor telemetry. Possible need for pacemaker implantation noted. Agree with discontinuation of lithium and avoidance of AV teresa blocking agents. CPAP therapy nightly. Review resting transthoracic echocardiogram when available. Cardiology will continue to follow during hospitalization. Pieter Knutson DO, [facility] History of Present Illness Reason for Consultation: New onset atrial fibrillation Requesting Physician: Ilene FERNANDEZ Attending Physician: Dr. Sarina Morgan MD History of Present Illness Kirsten Clark is a 83-year-old female who was admitted to [facility] on , December 24, 2023 after experiencing an unwitnessed fall at [facility]. 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 History is difficult to discern from patient with majority of information discern from review of the records. Cardiology consultation requested due to newly noted atrial fibrillation on EKG in the ER, EKG revealing atrial fibrillation with a ventricular rate of 52 bpm with left axis deviation, voltage criteria for LVH, nonspecific STT wave abnormality. EKG obtained this morning revealed atrial fibrillation with a ventricular rate of 41 bpm, with left axis deviation, nonspecific STT wave abnormality. QTc 363 ms. [place] has been placed on hold. Personal review of the patient's continuous patient monitor reveals atrial fibrillation with heart rates as low as 38 bpm overnight, currently with heart rates in the 60s. Chart review reveals a history of chronic sinus bradycardia, prior beta-jalen intolerance. Exertional chest discomfort lead to abnormal dobutamine stress echocardiography and ultimately diagnostic cardiac catheterization in [place], [place] on May 26, 2012. The left main was normal. There was a 40 to 50% proximal and mid LAD stenosis. There was a 30% mid left circumflex stenosis. The right coronary artery was dominant, with a diffuse 80% narrowing from the proximal to the mid segment. Patient status post PCI of the right coronary artery, receiving two drug-eluting stents. Additional problems include hypertension, dyslipidemia, chronic kidney disease, Parkinson's disease with dementia, bipolar 2 disorder, hypothyroidism, untreated obstructive sleep apnea, peripheral neuropathy, GERD, BPPV, chronic back pain status post laminectomy, B12 deficiency Family History: Positive for CAD in mother and father. Social History: Nonsmoker. No alcohol. No illegal drug use. . Retired. Resident of [employer] [facility] Allergies Allergy/AdvReac Type Severity Reaction Status Date / Time ampicillin Allergy Intermediate HIVES Verified 09/26/15 10:09 niacin Allergy Intermediate HIVES Verified 09/26/15 10:09 Penicillins Allergy Intermediate RASH Verified 09/26/15 10:09 procainamide Allergy Intermediate RASH Verified 09/26/15 10:09 codeine AdvReac Intermediate PROJECTILE Verified 09/26/15 10:09 VOMITING alendronate sodium AdvReac Mild NAUSEA AND Verified 09/26/15 10:09 VOMITING celecoxib AdvReac Mild NAUSEA AND Verified 09/26/15 10:09 VOMITING morphine AdvReac Mild VOMITING Verified 06/29/16 10:09 Home Medications Medication Instructions Recorded Confirmed Type ASPIRIN (ASPIRIN EC) 81 mg PO QAM ##0 09/10/15 12/24/23 History Acetaminophen Tab (TYLENOL) 650 mg PO BID #0 tabs 09/10/15 12/24/23 History Calcium/Vitamin D (Os-Phil 500 Plus 1 tab PO QAM #0 tabs 09/10/15 12/24/23 History D) Esomeprazole Magnesium (Nexium) 40 mg PO QAM #0 caps 09/10/15 12/24/23 History MECLIZINE HCL 2 tab PO TID PRN Dizziness or 09/10/15 12/24/23 History Vertigo 10 days #60 tabs Nitroglycerin (Nitrostat) 0.4 mg UT PRN #0 BTLS 09/10/15 12/24/23 History Ropinirole (Requip) 0.25 mg PO TID #0 tabs 09/10/15 12/24/23 History Sertraline (Zoloft) 25 mg PO HS #0 tabs 09/10/15 12/24/23 History atorvastatin 80 mg tablet 80 mg PO HS #0 tabs 09/10/15 12/24/23 History carbidopa 25 mg-levodopa 100 mg 1 tab PO TID #0 tabs 09/10/15 12/24/23 History tablet donepezil 5 mg tablet 5 mg PO QAM #0 tabs 09/10/15 12/24/23 History levothyroxine 75 mcg tablet 1 tab PO QAM 90 days #90 tabs 09/10/15 12/24/23 History Ferrous Sulfate 325 mg PO BIDM 30 days #0 tabs 10/08/15 12/24/23 Rx albuterol sulfate 90 mcg/actuation 1 puff inhalation DIRECTED PRN 12/24/23 12/24/23 History aerosol inhaler (Ventolin HFA) Other diclofenac sodium 1 % topical gel 1 ea topical DIRECTED 12/24/23 12/24/23 History duloxetine 60 mg capsule,delayed 60 mg PO DAILY 12/24/23 12/24/23 History release famotidine 20 mg tablet 20 mg PO DAILY 12/24/23 12/24/23 History gabapentin 300 mg capsule 300 mg PO DIRECTED 12/24/23 12/24/23 History lithium carbonate 300 mg 300 mg PO DAILY 12/24/23 12/24/23 History tablet,extended release losartan 25 mg tablet 25 mg PO DAILY 12/24/23 12/24/23 History oxybutynin chloride 5 mg tablet 5 mg PO BID 12/24/23 12/24/23 History quetiapine 200 mg tablet 200 mg PO DIRECTED 12/24/23 12/24/23 History Patient History Medical History AMI (acute myocardial infarction) Lumbar stenosis with neurogenic claudication Surgical History History of cataract surgery Stented coronary artery Social History Smoking Status: Never smoker Hx Alcohol Use: No Hx Substance Use: No Preferred Language: Armenian Communication Ability: Effective 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 Physical Exam Physical Exam: General: NAD. Markedly hard of hearing. HENT: Normocephalic. Atraumatic. Eyes: PER. Conjunctiva pink, sclera clear. Neck: No carotid bruits. No JVD. No HJR. Heart: Regular at 50 bpm. Grade II/ systolic murmur. Lungs: Clear to auscultation. Abdomen: +BS. Soft. Nontender. No masses or organomegaly. Extremities: No clubbing, cyanosis, or edema. Limited neurological examination is without focal deficits. Pulses: Posterior tibial=2/4. Results & Data Vital Signs (Past 12 Hours) Vital Signs Temp Pulse Pulse Resp BP Pulse Ox O2 Del Method 12/25/23 08:00 Room Air 12/25/23 07:08 36.5 C 57 L 18 138/60 94 Room Air 12/25/23 03:09 36.4 C L 54 L 18 152/71 H 92 Room Air 12/24/23 23:25 52 L Laboratory Results Cardiac Enzymes 12/24/23 12/24/23 12/24/23 Range/Units 14:00 15:54 23:36 AST 14 (13-39) U/L Troponin I High Sens 14.0 17.7 H 17.3 H (0-14) pg/ml 12/25/23 Range/Units 06:27 AST (13-39) U/L Troponin I High Sens 17.5 H (0-14) pg/ml Coagulation 12/24/23 Range/Units 14:00 PT 10.5 (9.0-12.0) Seconds APTT 27 (21-31) Seconds Lipids 12/25/23 Range/Units 06:27 Triglycerides 163 H (0-150) mg/dl Cholesterol 140 (0-200) mg/dl HDL Cholesterol 54 mg/dl Cholesterol/HDL Ratio 2.6 (0-5) CBC 12/24/23 12/25/23 Range/Units 14:00 06:27 WBC 8.62 7.48 (4.8-10.8) K/ul RBC 4.59 4.25 (4.20-5.40) M/uL Hgb 13.6 12.7 (12.0-16.0) g/dl Hct 44.0 40.3 (37.0-47.0) % Plt Count 299 271 (130-400) K/uL Neut # (Auto) 5.90 (1.40-6.50) K/uL Lymph # (Auto) 1.40 (1.20-3.40) K/uL [place] # (Auto) 0.64 H (0.11-0.59) K/uL Eos # (Auto) 0.57 H (0.00-0.50) K/uL Baso # (Auto) 0.06 (0.00-0.20) K/uL Comprehensive Metabolic Panel 12/24/23 12/25/23 Range/Units 14:00 06:27 Sodium 138 139 (136-145) mmol/L Potassium 4.4 4.2 (3.5-5.1) mmol/L Chloride 106 110 H (98-107) mmol/L Carbon Dioxide 26 24 (21-32) mmol/L BUN 26 H 23 (6-23) mg/dl Creatinine 1.25 H 1.09 (0.6-1.2) mg/dl Glucose 92 94 (70-99(Fasting)) mg/dl Calcium 9.9 9.4 (8.6-10.3) mg/dl AST 14 (13-39) U/L ALT 3 L (7-52) U/L Alkaline Phosphatase 119 H (34-104) U/L Total Protein 6.4 (6.0-8.3) gm/dl Albumin 3.9 (3.4-5.0) gm/dl Intake and Output 12/24/23 12/25/23 12/25/23 22:59 06:59 14:59 Intake Total 1157.667 / 1157.667 139.317 / 139.317 Output Total 300 / 850 550 / 850 Balance -300 / 307.667 607.667 / 307.667 139.317 / 139.317 Intake: IV 1157.667 / 1157.667 139.317 / 139.317 Heparin Sodium/Dextrose 25,000 157.667 / 157.667 139.317 / 139.317 units In 500 ml @ 1,000 UNITS/ HR 20 mls/hr IV .Q24H [facility] Rx#: [id number] Sodium Chloride 0.9% 1,000 ml @ 1000 / 1000 80 mls/hr IV .[id number] [facility] Rx#: [id number] Output: Urine 300 / 850 550 / 850 Other: Weight 69.5 kg 75.2 kg Weight Measurement Method Standing Scale Built in [facility]
--- NOTE | 2023-12-25 15:07 | Hospitalist Progress Note ---
Date of Service December 25, 2023 Assessment & Plan (1) New onset a-fib: (2) CAD (coronary artery disease): (3) Depression: (4) HTN (hypertension): (5) HLD (hyperlipidemia): (6) Bipolar 2 disorder: Plan Ms. Clark is an 83 year old female that presents to the [facility] after experiencing a ground level fall that occurred today at [facility]. She has been in rate controlled atrial fibrillation since she has been here and does not have a history of atrial fibrillation. She has complaints of being generally weak and lethargic. Unsure if patient had lightheadedness or dizziness prior to her fall. Patient is not a great historian. I s/w daughter Bianca at [phone] who is out of state working and the last time she saw her during the last week of October 2023. Per daughter she has had issues in the past with her heart rate being low, but has never been diagnosed with atrial fibrillation. She has a PMH that includes CAD s/p stent placement x2 done at [facility] in [place] in 2007, CVA, Lewy Body dementia, HTN, hypothyroidism. Lengthy discussion held with patients daughter about benefits vs risks of being on anticoagulation and she has opted to continue with treatment with a Heparin infusion. Her CHADs VASc is a 7. At baseline, she is able to get dressed with assistance and is able to independently feed herself but requires all of her needs to be anticipated and met. Patient will be admitted for further evaluation and management of her new onset atrial fibrillation and fall/generalized weakness. We will obtain an ECHO, TSH, UA, Heparin gtt, Cards consultation, PT/OT and case management consult to assist with placement at SNF. New onset atrial fibrillation: weakness: Which could be secondary to lithium that she has been taking Appreciate cardiology input and recommendation Citrus is on hold now and the lithium level has been normal Will talk to the daughter about lithium and will likely need to be psychiatric evaluation to give other medications in place of lithium Will continue to observe in telemetry unit for the need for pacemaker Has been getting any beta blocking agents CHADs vasc 7 has been on intravenous heparin now Recurrent fall: History of recurrent falls as an outpatient Noted to have atrial fibrillation with slow heart rate May be the cause of her fall is a bradycardia/bradycardia arrhythmia CSCT and head CT negative Hip/Pelvis X-ray negative PT and OT evaluation Bradycardia: Chronic Per daughter she has had bradycardia (50's) since her AMI in 2007. Appears pt was on Metoprolol at one point, but not on current med list Cards consult ECHO ordered Orthostatic BP ordered LINCOLN: Acute serum creatinine 1.25; unsure of baseline fluid challenge and recheck BMP in AM CAD: Chronic AMI s/p stent placement x1 in 2007 at [facility] Not on any anticoagulation Takes baby ASA; continue Lewy Body Dementia: Chronic Takes Sinemet; continue Takes donepezil;continue Takes Seroquel; continue FAST score: up to and including all of 6 Some per daughter HTN: Chronic Takes losartan;continue HLD: Chronic Takes Bipolar Disorder: Chronic Takes Citrus; continue check lithium levels Takes duloxetine;continue Hypothyroidism: Chronic Takes levothyroxine;continue TSH today in ED 2.482 OAB: Chronic Takes oxybutynin;cont Disposition: PCP: Dr. Gonzalez Code Status: Full Code VTE Prophylaxis: Heparin gtt Admission and Anticipated Discharge Date Admission Date: December 24, 2023 Subjective 12/25/2023 The patient was seen and examined in telemetry unit She is very hard of hearing and complains to pain in the left wrist and hand Denies any chest pain and/or palpitation She has been falling a lot as an outpatient Heart rate remains low at 59 Review of Systems Review of Systems: all systems reviewed and are unremarkable except as noted below Physical Exam Physical Exam: lying in bed without any acute distress Constitutional: well developed, well nourished, + ill appearing and + obese Eyes: PERRL, conjunctivae normal, anicteric sclerae ENMT: external ear and nose normal, oropharynx normal Neck: trachea midline, no thyromegaly Respiratory: no respiratory distress Auscultation: lungs clear to auscultation bilaterally Cardiovascular: Rate/Rhythm: regular rate, regular rhythm and + bradycardic Gastrointestinal (Abdomen): Inspection/Auscultation: normal bowel sounds; abdomen not distended Percussion/Palpation: abdomen soft; abdomen nontender Musculoskeletal: left hand and wrist pain with movement but no other acute arthritis Neurologic: normal touch/pain/proprioception and moves all extremities she is very deaf Lymphatic: no cervical or axillary lymphadenopathy Results & Data Results & Data Vital Signs (Past 12 Hours) Vital Signs Temp Pulse Resp BP BP Pulse Ox O2 Del Method 12/25/23 11:23 37.0 C 59 L 18 171/63 H 94 Room Air 12/25/23 08:00 Room Air 12/25/23 07:08 36.5 C 57 L 18 138/60 94 Room Air 12/25/23 03:09 36.4 C L 54 L 18 152/71 H 92 Room Air Laboratory Results Short CBC 12/25/23 Range/Units 06:27 WBC 7.48 (4.8-10.8) K/ul Hgb 12.7 (12.0-16.0) g/dl Hct 40.3 (37.0-47.0) % Plt Count 271 (130-400) K/uL BMP 12/25/23 06:27 Sodium 139 Potassium 4.2 Chloride 110 H Carbon Dioxide 24 BUN 23 Creatinine 1.09 Glucose 94 Calcium 9.4 Urine 12/24/23 Range/Units 20:20 Urine Color Yellow Urine Appearance Clear (Clear) Urine pH 6.0 (4.5-7.5) Ur Specific [place] 1.015 (1.000-1.030) Urine Protein Negative (Negative) Urine Glucose (UA) Negative (Negative) Medications Administered Current Inpatient Medications Acetaminophen (Acetaminophen 325 Mg Tab) 650 mg PO Q4H PRN PRN Reason: Pain or Fever Stop: 01/23/24 18:07 Al Hydrox/Mg Hydrox/Simethicone (Aluminum/Magnesium Susp 30 Ml Udc) 15 ml PO Q4H PRN PRN Reason: Dyspepsia Stop: 01/23/24 18:07 Albuterol (Albuterol Hfa 8 Gm Inhaler) 1 puffs INH Q6 PRN PRN Reason: Shortness Of Breath Or Wheezing Stop: 01/23/24 15:47 Aspirin (Aspirin 81 Mg Ectab) 81 mg PO QAM [facility] Stop: 01/24/24 08:59 Last Admin: 12/25/23 08:55 Dose: 81 mg Atorvastatin Calcium (Atorvastatin 40 Mg Tab) 80 mg PO HS [facility] Stop: 01/23/24 20:59 Last Admin: 12/24/23 20:10 Dose: 80 mg Atropine Sulfate (Atropine Sulfate 0.1 Mg/Ml 10ml Syr) 1 mg IV Q3M PRN PRN Reason: symptomatic bradycardia Stop: 01/24/24 03:12 Carbidopa/Levodopa (Carbidopa/Levodopa 25/100mg Tab) 1 tab PO TID YULIANA Stop: 01/23/24 20:59 Last Admin: 12/25/23 13:54 Dose: 1 tab Donepezil HCl (Donepezil Hcl 5 Mg Tab) 5 mg PO QAM YULIANA Stop: 01/24/24 08:59 Last Admin: 12/25/23 08:54 Dose: 5 mg Duloxetine HCl (Duloxetine Hcl 60 Mg Cap) 60 mg PO DAILY YULIANA Stop: 01/24/24 08:59 Last Admin: 12/25/23 08:54 Dose: 60 mg Famotidine (Famotidine 20 Mg Tab) 20 mg PO DAILY YULIANA Stop: 01/24/24 08:59 Last Admin: 12/25/23 08:55 Dose: 20 mg Ferrous Sulfate (Ferrous Sulfate 325 Mg Tab) 325 mg PO BIDM YULIANA Stop: 01/23/24 16:59 Last Admin: 12/25/23 08:54 Dose: 325 mg Gabapentin (Gabapentin 300 Mg Cap) 300 mg PO BID YULIANA Stop: 01/23/24 20:59 Last Admin: 12/25/23 08:52 Dose: 300 mg Heparin Sodium/Dextrose (Heparin Sodium/Dextrose) 25,000 units in 500 mls @ 18 mls/hr IV .Q24H YULIANA; Protocol Stop: 01/23/24 16:29 Last Titration: 12/25/23 07:44 Dose: 900 units/hr, 18 mls/hr Levothyroxine Sodium (Levothyroxine Sodium 75 Mcg Tablet) 75 mcg PO DAILYBB [facility] Stop: 01/24/24 06:29 Last Admin: 12/25/23 06:31 Dose: 75 mcg Losartan Potassium (Losartan Potassium 25 Mg Tab) 25 mg PO DAILY YULIANA Stop: 01/24/24 08:59 Last Admin: 12/25/23 08:54 Dose: 25 mg Magnesium Hydroxide (Magnesium Hydroxide Susp 30 Ml Udc) 30 ml PO Q12H PRN PRN Reason: Constipation Stop: 01/23/24 18:07 Meclizine HCl (Meclizine Hcl 25 Mg Tab) 25 mg PO TID PRN PRN Reason: Dizziness or Vertigo Stop: 01/23/24 18:14 Ondansetron HCl (Ondansetron Inj 2 Mg/Ml 2 Ml Vial) 4 mg IV Q6H PRN PRN Reason: Nausea Stop: 01/23/24 18:07 Oxybutynin Chloride (Oxybutynin Chloride 5 Mg Tab) 5 mg PO BID YULIANA Stop: 01/23/24 20:59 Last Admin: 12/25/23 08:52 Dose: 5 mg Pantoprazole Sodium (Pantoprazole 40 Mg Tab) 40 mg PO QAM YULIANA Stop: 01/24/24 08:59 Last Admin: 12/25/23 08:54 Dose: 40 mg Polyethylene Glycol (Polyethylene (Miralax) 17 Gm Pack) 17 gm PO DAILY PRN PRN Reason: Constipation Stop: 01/23/24 18:07 Last Admin: 12/25/23 08:52 Dose: 17 gm Quetiapine Fumarate (Quetiapine Fumarate 200 Mg Tab) 200 mg PO DAILY YULIANA Stop: 01/23/24 18:29 Last Admin: 12/25/23 08:53 Dose: 200 mg Ropinirole HCl (Ropinirole Hcl 0.25 Mg Tablet) 0.25 mg PO TID YULIANA Stop: 01/23/24 20:59 Last Admin: 12/25/23 13:54 Dose: 0.25 mg Sertraline HCl (Sertraline Hcl 50 Mg Tablet) 25 mg PO HS YULIANA Stop: 01/23/24 20:59 Last Admin: 12/24/23 20:11 Dose: 25 mg
[2023-12-25] MEDS: amLODIPine BESYLATE 5 MG TAB PO ONE (17:04)
--- NOTE | 2023-12-25 20:23 | Electrocardiogram Report ---
Test Reason : Blood Pressure : */* mmHG Vent. Rate : 41 BPM Atrial Rate : 48 BPM P-R Int : * ms QRS Dur : 90 ms QT Int : 496 ms P-R-T Axes : * -53 5 degrees QTcB Int : 410 ms Atrial fibrillation with slow ventricular response Left axis deviation Nonspecific ST and T wave abnormality Abnormal ECG When compared with ECG of 24-Dec-2023 10:53, Nonspecific T wave abnormality now evident in Inferior leads Confirmed by Johann Montero ([id number]) on 12/25/2023 8:22:49 PM Referred By: REFERRED SELF Confirmed By: Johann Montero
[2023-12-26 07:24] LABS: ANTI-Xa, UFH(UnfractionatedHep 0.64 IU/ml (0.3-0.7)
[2023-12-26] MEDS: amLODIPine BESYLATE 5 MG TAB PO SCH (08:57)
[2023-12-26] MEDS ORDERED: amLODIPine BESYLATE 5 MG TAB PO SCH (09:00)
--- NOTE | 2023-12-26 11:37 | Cardiology Progress Note ---
Date of Service December 26, 2023 Assessment & Plan (1) New onset a-fib: (2) Bradycardia: (3) ASCVD (arteriosclerotic cardiovascular disease): (4) HTN (hypertension): (5) Dyslipidemia, goal LDL below 70: (6) Ground-level fall: Plan Atrial fibrillation. Duration unknown. Patient seemingly asymptomatic. [id number]- VASc Score is at least 4 points. Patient admitted after a unwitnessed fall with chart history of Parkinson's disease and dementia. + Severe LA dilatation. - Avoid AV teresa blockers, RE: Resting bradycardia - Risks of usp anticoagulation appear to be greater than the benefit. Bradycardia. Concern for symptomatic bradycardia and Tachy-Vishal Syndrome noted, ? contributing to the fall. - TSH OK. - Barryton discontinued with improvement. Consider Psychiatry evaluation. - Untreated sleep apnea may be a contributing factor. Recommend CPAP therapy. - Avoid AV teresa blockers. - Maintain telemetry while hospitalized. - Possible need for permanent pacemaker implantation discussed. Minimally elevated troponin. Known ASCVD. Resting echocardiography with preserved LV systolic function, EF 55 to 60%. No wall motion abnormalities. Continue medical management with ASA, statin, and ARB. No beta-jalen unless pacemaker in place. Hypertension. Uncontrolled. Amlodipine added and increased. Increase Losartan dosing. Trial low dose low acting nitrates noting underlying CAD. Dyslipidemia. Continue high intensity statin therapy. Admission and Anticipated Discharge Date Admission Date: December 24, 2023 Supervising Physician Co-Signing Physician Notes I have personally performed a history and physical examination on the patient. I have reviewed the advance practitioner's documentation, and I agree with, and take responsibility for the plan of care. 83-year-old female admitted through the emergency department due to unwitnessed fall at [facility]. ECG demonstrating atrial fibrillation (new diagnosis) with slow ventricular response. Barryton discontinued on admission with improvement of resting heart rate. Currently, no indication for pacemaker implantation. Uncontrolled blood pressure since admission. Amlodipine 5 mg daily and isosorbide monohydrate 30 mg daily added. Losartan dose increased. Pieter Knutson DO, [facility] Subjective Patient seen and examined. Chart, medications, and telemetry reviewed. Blood pressures uncontrolled, most recently 183/75 No headaches, unilateral complaints, visual change, chest pain, shortness of breath, palpitations, recent lightheadedness or dizziness, near-syncope, orthopnea or PND. Telemetry: Atrial fibrillation in the 50's. No significant bradycardia or pauses overnight. Review of Systems Review of Systems: As above. Otherwise, negative or noncontributory Physical Exam Physical Exam: General: NAD. Markedly hard of hearing. HENT: Normocephalic. Atraumatic. Eyes: PER. Conjunctiva pink, sclera clear. Neck: No carotid bruits. No JVD. No HJR. Heart: Irregularly irregular at 50 bpm. Grade II/ systolic murmur. Lungs: Clear to auscultation. Abdomen: +BS. Soft. Nontender. No masses or organomegaly. Extremities: No clubbing, cyanosis, or edema. Limited neurological examination is without focal deficits. Pulses: Posterior tibial=2/4. Results & Data Vital Signs (Past 12 Hours) Vital Signs Temp Pulse Resp BP BP Pulse Ox O2 Del Method 12/26/23 11:11 36.7 C 49 L 18 183/75 H 94 Room Air 12/26/23 08:00 Room Air 12/26/23 07:14 37.0 C 60 18 178/75 H 92 Room Air 12/26/23 04:18 36.5 C 64 144/69 H 91 Room Air 12/26/23 00:10 36.6 C 67 183/78 H 91 Room Air Laboratory Results Intake and Output 12/25/23 12/26/23 12/26/23 22:59 06:59 14:59 Intake Total 403.016 / 662.333 120 / 662.333 Balance 403.016 / 662.333 120 / 662.333 Intake: IV 203.016 / 342.333 Heparin Sodium/Dextrose 25,000 203.016 / 342.333 units In 500 ml @ 900 UNITS/HR 18 mls/hr IV .Q24H YULIANA Rx#: [id number] Oral 200 / 320 120 / 320 Other: # Unmeasured Voids 1 1 Weight 75.1 kg 70.2 kg Weight Measurement Method Standing Scale Patient Weight 12/27/23 06:59 Weight 70.2 kg
[2023-12-26] MEDS: ISOSORBIDE MONO EXTENDED REL 30 MG TABCR PO SCH (12:15)
[2023-12-26] MEDS: LOSARTAN POTASSIUM 25 MG TAB PO ONE (12:15)
[2023-12-26 12:26] LABS: Hematocrit (blood only) 46.2 % (37.0-47.0); Hemoglobin 14.5 g/dl (12.0-16.0); Mean Corpuscular Hemoglobin 29.7 pg (25.0-34.0); Mean Corpuscular Hgb Conc 31.4 g/dL (32.0-36.0); Mean Corpuscular Volume 94.7 fL (80.0-100.0); Platelet Count 295 K/uL (130-400); RDW Coefficient of Variation 13.3 % (11.5-14.5); RDW Standard Deviation 46.5 fL (36.4-46.3); Red Blood Count 4.88 M/uL (4.20-5.40)
--- NOTE | 2023-12-26 13:24 | Psychiatric Consultation ---
Date of Consultation December 26, 2023 Impression / Recommendations Impression Kirsten Clark is a 83 yo woman with a history of BPAD, Lewy body dementia, bradycardia admitted medically with new onset afib. Psychiatry consulted for recommendations due to lithium discontinuation. Based on collateral from patient's daughter, it seems her diagnosis of bipolar affective disorder is accurate and that [place] has kept her mood stabilized for many years with periods of severe marian prior to the initiation of this. If not for the cardiac concerns, the recommendation would be for her to remain on [place] given this course of stability and improvement with [place]. Unfortunately typically when someone has responded well to [place] and been on this long-term, attempts to transition to alternative mood stabilizer such as Depakote are often not very effective. Given her lewy body dementia diagnosis there is the added complexity of needing to limit exposure to antipsychotic medications, often the other preferred mood stabilizer option. Could consider use of lamictal but titration is slow so for now would advise increasing prior to admission Seroquel, discontinuing sertraline to lessen antidepressant use as this can contribute to marian, and possible reconsideration for lithium in the future based on cardiac course. Note all antipsychotic medications carry black box warning for increased risk of all-cause mortality in setting of dementia. Overall, I spent a total of 45 minutes with this case including review of chart records, review of labwork, review of EKG, direct evaluation of the patient at bedside, discussion of the patient with the Nurse and with the hospitalist provider, discussion with the psychiatric liason during clinical rounds, review of collateral historian information from the family and documentation in the electronic health record. (1) Bipolar disorder: (2) Bradycardia: (3) New onset a-fib: (4) Lewy body dementia: Plan -Increase Seroquel to 300mg HS -Discontinue sertraline 25mg daily -Continue duloxetine 60mg daily (may need to be tapered if symptoms of marian emerge) -Consider ideally even low dose [place] in the future if cardiac status/concerns lessen -For behavioral emergency: olanzapine 2.5 mg IM x 1 (DO NOT exceed 10mg per 24 hours, check EKG if IM dose required, NEVER co-administer with IM or IV benzodiazepines). AVOID use of haldol given Lewy Body dementia diagnosis. Psych History Identifying Data Kirsten Clark is a 83 yo woman with a history of BPAD, Lewy body dementia, bradycardia admitted medically with new onset afib. Psychiatry consulted for recommendations due to lithium discontinuation. Chief Complaint mute History of Present Illness Kirsten was admitted following a fall and found to be in new onset afib and now with subsequent episodes of bradycardia. [place] was discontinued due to cardiac concerns. She's been having some confusion in the evenings since being admitted and with confusion, often trying to remove her IV or cardiac leads. She is hard of hearing and so nursing has been communicating with her via a notepad. Kirsten was asleep at the time of my attempted assessment. Psych liason gathered further collateral from her daughter: "Spoke with patients daughter Bianca, she reports that her mother has been on [place] for at least 40 years and has been stable on this medication. She describes her mood/behavior in the past without lithium as "horrible", manic depressive, and financially irresponsible. She had in the past acquired a lot of dept due to spending and legally is now not able to make any financial decisions without her daughters approval. She states that she is the Durable POA. She also describes her mothers mood since dementia diagnosis as "pleasant and happy". She states she is waiting for to call her for assistance with placement. " Allergies Allergy/AdvReac Type Severity Reaction Status Date / Time ampicillin Allergy Intermediate HIVES Verified 09/26/15 10:09 niacin Allergy Intermediate HIVES Verified 09/26/15 10:09 Penicillins Allergy Intermediate RASH Verified 09/26/15 10:09 procainamide Allergy Intermediate RASH Verified 09/26/15 10:09 codeine AdvReac Intermediate PROJECTILE Verified 09/26/15 10:09 VOMITING alendronate sodium AdvReac Mild NAUSEA AND Verified 09/26/15 10:09 VOMITING celecoxib AdvReac Mild NAUSEA AND Verified 09/26/15 10:09 VOMITING morphine AdvReac Mild VOMITING Verified 09/26/15 10:09 Home Medications Medication Instructions Recorded Confirmed Type ASPIRIN (ASPIRIN EC) 81 mg PO QAM ##0 09/10/15 12/24/23 History Acetaminophen Tab (TYLENOL) 650 mg PO BID #0 tabs 09/10/15 12/24/23 History Calcium/Vitamin D (Os-Phil 500 Plus 1 tab PO QAM #0 tabs 09/10/15 12/24/23 History D) Esomeprazole Magnesium (Nexium) 40 mg PO QAM #0 caps 09/10/15 12/24/23 History MECLIZINE HCL 2 tab PO TID PRN Dizziness or 09/10/15 12/24/23 History Vertigo 10 days #60 tabs Nitroglycerin (Nitrostat) 0.4 mg UT PRN #0 BTLS 09/10/15 12/24/23 History Ropinirole (Requip) 0.25 mg PO TID #0 tabs 09/10/15 12/24/23 History Sertraline (Zoloft) 25 mg PO HS #0 tabs 09/10/15 12/24/23 History atorvastatin 80 mg tablet 80 mg PO HS #0 tabs 09/10/15 12/24/23 History carbidopa 25 mg-levodopa 100 mg 1 tab PO TID #0 tabs 09/10/15 12/24/23 History tablet donepezil 5 mg tablet 5 mg PO QAM #0 tabs 09/10/15 12/24/23 History levothyroxine 75 mcg tablet 1 tab PO QAM 90 days #90 tabs 09/10/15 12/24/23 History Ferrous Sulfate 325 mg PO BIDM 30 days #0 tabs 10/08/15 12/24/23 Rx albuterol sulfate 90 mcg/actuation 1 puff inhalation DIRECTED PRN 12/24/23 12/24/23 History aerosol inhaler (Ventolin HFA) Other diclofenac sodium 1 % topical gel 1 ea topical DIRECTED 12/24/23 12/24/23 History duloxetine 60 mg capsule,delayed 60 mg PO DAILY 12/24/23 12/24/23 History release famotidine 20 mg tablet 20 mg PO DAILY 12/24/23 12/24/23 History gabapentin 300 mg capsule 300 mg PO DIRECTED 12/24/23 12/24/23 History lithium carbonate 300 mg 300 mg PO DAILY 12/24/23 12/24/23 History tablet,extended release losartan 25 mg tablet 25 mg PO DAILY 12/24/23 12/24/23 History oxybutynin chloride 5 mg tablet 5 mg PO BID 12/24/23 12/24/23 History quetiapine 200 mg tablet 200 mg PO DIRECTED 12/24/23 12/24/23 History Patient History Medical History AMI (acute myocardial infarction) Lumbar stenosis with neurogenic claudication Surgical History History of cataract surgery Stented coronary artery Social History Smoking Status: Never smoker Hx Alcohol Use: No Hx Substance Use: No Preferred Language: Mongolian Communication Ability: Effective Hydrographic Engineer Required: No Beliefs That Will Affect Care: None Current Living Situation: Alf Other Information That Helps Us Care for You: No Feels Safe at Home: Yes Safety Concerns: Feels Safe At This Time Assistive Devices: Walker Physical Exam Vital Signs (Past 24 Hours): Last Vital Signs Temp 36.7 C 12/26/23 11:11 Pulse 49 L 12/26/23 11:11 Resp 18 12/26/23 11:11 BP 183/75 H 12/26/23 11:11 Pulse Ox 94 12/26/23 11:11 O2 Del Method Room Air 12/26/23 11:11 Results & Data (PSY) Medications Administered Amlodipine Besylate (Amlodipine Besylate 5 Mg Tab) [facility] [place] Stop: 01/25/24 08:59 Last Admin: 12/26/23 08:57 Dose: 5 mg Documented By: CATRACHITA Aspirin (Aspirin 81 Mg Ectab) 81 [facility] [place] Stop: 01/24/24 08:59 Last Admin: 12/26/23 08:58 Dose: 81 mg Documented By: Admin: 12/25/23 08:55 Dose: 81 mg Documented By: CATRACHITA Atorvastatin Calcium (Atorvastatin 40 Mg Tab) 80 mg PO [facility] Stop: 01/23/24 20:59 Last Admin: 12/25/23 20:29 Dose: 80 mg Documented By: Admin: 12/24/23 20:10 Dose: 80 mg Documented By: JAYLEEN Carbidopa/Levodopa (Carbidopa/Levodopa 25/100mg Tab) 1 tab PO TID [facility] Stop: 01/23/24 20:59 Last Admin: 12/26/23 08:59 Dose: 1 tab Documented By: Admin: 12/25/23 20:28 Dose: 1 tab Documented By: Admin: 12/25/23 13:54 Dose: 1 tab Documented By: Admin: 12/25/23 08:53 Dose: 1 tab Documented By: Admin: 12/24/23 20:10 Dose: 1 tab Documented By: JAYLEEN Donepezil HCl (Donepezil Hcl 5 Mg Tab) 5 mg PO QAM [facility] Stop: 01/24/24 08:59 Last Admin: 12/25/23 08:54 Dose: 5 mg Documented By: CATRACHITA Duloxetine HCl (Duloxetine Hcl 60 Mg Cap) 60 mg PO DAILY [facility] Stop: 01/24/24 08:59 Last Admin: 12/26/23 08:59 Dose: 60 mg Documented By: Admin: 12/25/23 08:54 Dose: 60 mg Documented By: CATRACHITA Famotidine (Famotidine 20 Mg Tab) 20 mg PO DAILY [facility] Stop: 01/24/24 08:59 Last Admin: 12/26/23 08:58 Dose: 20 mg Documented By: Admin: 12/25/23 08:55 Dose: 20 mg Documented By: CATRACHITA Ferrous Sulfate (Ferrous Sulfate 325 Mg Tab) 325 mg PO BIDM [facility] Stop: 01/23/24 16:59 Last Admin: 12/26/23 08:57 Dose: 325 mg Documented By: Admin: 12/25/23 17:04 Dose: 325 mg Documented By: Admin: 12/25/23 08:54 Dose: 325 mg Documented By: Admin: 12/24/23 20:09 Dose: 325 mg Documented By: JAYLEEN Gabapentin (Gabapentin 300 Mg Cap) 300 mg PO BID [facility] Stop: 01/23/24 20:59 Last Admin: 12/26/23 08:58 Dose: 300 mg Documented By: Admin: 12/25/23 20:29 Dose: 300 mg Documented By: Admin: 12/25/23 08:52 Dose: 300 mg Documented By: Admin: 12/24/23 20:10 Dose: 300 mg Documented By: JAYLEEN Heparin Sodium/Dextrose (Heparin Sodium/Dextrose) 25,000 units in 500 mls @ 18 mls/hr IV .Q24H [facility]; Protocol Stop: 01/23/24 16:29 Last Admin: 12/25/23 20:30 Dose: 900 units/hr, 18 mls/hr Documented By: YUE Co-signed By: NAINA Titration: 12/25/23 19:24 Dose: Infused Documented By: YUE Co-signed By: CATRACHITA Titration: 12/25/23 15:16 Dose: 900 units/hr, 18 mls/hr Documented By: CATRACHITA Co-signed By: CARL Titration: 12/25/23 07:44 Dose: 900 units/hr, 18 mls/hr Documented By: CATRACHITA Co-signed By: MERISSA Titration: 12/25/23 07:43 Dose: 950 units/hr, 19 mls/hr Documented By: CATRACHITA Co-signed By: MERISSA Titration: 12/25/23 07:04 Dose: 1,000 units/hr, 20 mls/hr Documented By: CATRACHITA Co-signed By: ALEKSEY Titration: 12/25/23 00:46 Dose: 1,000 units/hr, 20 mls/hr Documented By: ALEKSEY Co-signed By: JAYLEEN Admin: 12/24/23 16:53 Dose: 1,000 units/hr, 20 mls/hr Documented By: JOHN Co-signed By: KMO Isosorbide Mononitrate (Isosorbide [place] Extended Rel 30 Mg Tabcr) 30 mg PO QAM [facility] Stop: 01/25/24 11:59 Last Admin: 12/26/23 12:15 Dose: 30 mg Documented By: CATRACHITA Levothyroxine Sodium (Levothyroxine Sodium 75 Mcg Tablet) 75 mcg PO DAILYBB [facility] Stop: 01/24/24 06:29 Last Admin: 12/26/23 05:56 Dose: 75 mcg Documented By: Admin: 12/25/23 06:31 Dose: 75 mcg Documented By: ALEKSEY Oxybutynin Chloride (Oxybutynin Chloride 5 Mg Tab) 5 mg PO BID [facility] Stop: 01/23/24 20:59 Last Admin: 12/26/23 08:59 Dose: 5 mg Documented By: Admin: 12/25/23 20:28 Dose: 5 mg Documented By: Admin: 12/25/23 08:52 Dose: 5 mg Documented By: Admin: 12/24/23 20:10 Dose: 5 mg Documented By: JAYLEEN Pantoprazole Sodium (Pantoprazole 40 Mg Tab) 40 mg PO QAM [facility] Stop: 01/24/24 08:59 Last Admin: 12/26/23 08:57 Dose: 40 mg Documented By: Admin: 12/25/23 08:54 Dose: 40 mg Documented By: CATRACHITA Polyethylene Glycol (Polyethylene (Miralax) 17 Gm Pack) 17 gm PO DAILY PRN PRN Reason: Constipation Stop: 01/23/24 18:07 Last Admin: 12/26/23 08:59 Dose: 17 gm Documented By: Admin: 12/25/23 08:52 Dose: 17 gm Documented By: CATRACHITA Quetiapine Fumarate (Quetiapine Fumarate 200 Mg Tab) 200 mg PO DAILY [facility] Stop: 01/23/24 18:29 Last Admin: 12/26/23 08:59 Dose: 200 mg Documented By: Admin: 12/25/23 08:53 Dose: 200 mg Documented By: Admin: 12/24/23 20:10 Dose: 200 mg Documented By: JAYLEEN Ropinirole HCl (Ropinirole Hcl 0.25 Mg Tablet) 0.25 mg PO TID [facility] Stop: 01/23/24 20:59 Last Admin: 12/26/23 08:58 Dose: 0.25 mg Documented By: Admin: 12/25/23 20:29 Dose: 0.25 mg Documented By: Admin: 12/25/23 13:54 Dose: 0.25 mg Documented By: Admin: 12/25/23 08:52 Dose: 0.25 mg Documented By: Admin: 12/24/23 20:11 Dose: 0.25 mg Documented By: JAYLEEN Sertraline HCl (Sertraline Hcl 50 Mg Tablet) 25 mg PO HS [facility] Stop: 01/23/24 20:59 Last Admin: 12/25/23 20:27 Dose: 25 mg Documented By: Admin: 12/24/23 20:11 Dose: 25 mg Documented By: JAYLEEN Coding Level of Care Code 94226 IN/OBS CONSULT LVL 3,45M Diagnoses Bipolar disorder F31.9 Bradycardia R00.1 New onset a-fib I48.91 Lewy body dementia G31.83; F02.80
[2023-12-26] MEDS ORDERED: OLANZapine 10 MG/2.1 ML SDV IM PRN (13:37)
[2023-12-26] MEDS: ONDANSETRON INJ 2 MG/ML 2 ML VIAL IV PRN (13:53)
[2023-12-26 14:19] LABS: Calcium 10.2 mg/dl (8.6-10.3); Potassium 4.4 mmol/L (3.5-5.1)
[2023-12-26 14:25] LABS: BUN Creatinine Ratio 16.8 (10-20); Creatinine Clr Calc Pharmacy 29.7 ml/min; Est GFR (African American) 52.1 ml/min; Est GFR (Non-African American) 44.9 ml/min
--- NOTE | 2023-12-26 15:33 | Hospitalist Progress Note ---
Date of Service December 26, 2023 Assessment & Plan (1) New onset a-fib: (2) CAD (coronary artery disease): (3) Depression: (4) HTN (hypertension): (5) HLD (hyperlipidemia): (6) Bipolar 2 disorder: Plan Ms. Clark is an 83 year old female that presents to the [facility] after experiencing a ground level fall that occurred today at [facility]. She has been in rate controlled atrial fibrillation since she has been here and does not have a history of atrial fibrillation. She has complaints of being generally weak and lethargic. Unsure if patient had lightheadedness or dizziness prior to her fall. Patient is not a great historian. I s/w daughter Bianca at [phone] who is out of state working and the last time she saw her during the last week of October 2023. Per daughter she has had issues in the past with her heart rate being low, but has never been diagnosed with atrial fibrillation. She has a PMH that includes CAD s/p stent placement x2 done at [facility] in [place] in 2007, CVA, Lewy Body dementia, HTN, hypothyroidism. Lengthy discussion held with patients daughter about benefits vs risks of being on anticoagulation and she has opted to continue with treatment with a Heparin infusion. Her CHADs VASc is a 7. At baseline, she is able to get dressed with assistance and is able to independently feed herself but requires all of her needs to be anticipated and met. Patient will be admitted for further evaluation and management of her new onset atrial fibrillation and fall/generalized weakness. We will obtain an ECHO, TSH, UA, Heparin gtt, Cards consultation, PT/OT and case management consult to assist with placement at SNF. New onset atrial fibrillation: weakness: Which could be secondary to lithium that she has been taking Appreciate cardiology input and recommendation [place] is on hold now and the lithium level has been normal Will talk to the daughter about lithium and will likely need to be psychiatric evaluation to give other medications in place of lithium Will continue to observe in telemetry unit for the need for pacemaker Has not been getting any beta blocking agents CHADs vasc 7 Has been on intravenous heparin now Clinically stable with heart rate around 50s Bradycardia: History of chronic bradycardia Per daughter she has had bradycardia (50's) since her AMI in 2007. Appears pt was on Metoprolol at one point, but not on current med list ECHO ordered-Showed atrial fibrillation with slow ventricular rate, LVEF was 55 to 60%, mild concentric LVH, left atrium is severely dilated, mild aortic regurgitation, there is mild tricuspid regurgitation, and Doppler finding do not suggest pulmonary hypertension Appreciate cardiology input and recommendation The cause of bradycardia could be secondary to lithium [place] is on hold as above and psychiatric consultation was taken Seroquel has been increased to 300 mg to control bipolar Recurrent fall: History of recurrent falls as an outpatient-Recurrent falls could be secondary to cardiac arrhythmia Noted to have atrial fibrillation with slow heart rate May be the cause of her fall is a bradycardia/bradycardia arrhythmia CSCT and head CT negative Hip/Pelvis X-ray negative PT and OT evaluation [place]: Acute serum creatinine 1.25; unsure of baseline fluid challenge and recheck BMP in AM Creatinine has been normalized CAD: Chronic AMI s/p stent placement x1 in 2007 at [facility] Not on any anticoagulation Takes baby ASA; continue Lewy Body Dementia: Chronic Takes Sinemet; continue Takes donepezil;continue Takes Seroquel; continue FAST score: up to and including all of 6 Some ing per daughter Do not give any Haldol for any acute mood stabilization as it can aggravate Lewy body dementia HTN: Chronic Takes losartan;continue HLD: Chronic Takes Bipolar Disorder: Chronic Takes [place]; continue check lithium levels Takes duloxetine;continue Appreciate psychiatrist input and recommendation following discontinuation of lithium Seroquel dose has been increased to 300 mg and sertraline has been discontinued Hypothyroidism: Chronic Takes levothyroxine;continue TSH today in ED 2.482 OAB: Chronic Takes oxybutynin;cont Disposition: PCP: Dr. 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 Denies any significant symptoms Heart rate remains low at around 50s Review of Systems Review of Systems: all systems reviewed and are unremarkable except as noted below Physical Exam Physical Exam: lying in bed without any acute distress Constitutional: well developed, well nourished, + ill appearing and + obese Eyes: PERRL, conjunctivae normal, anicteric sclerae ENMT: external ear and nose normal, oropharynx normal Neck: trachea midline, no thyromegaly Respiratory: no respiratory distress Auscultation: lungs clear to auscultation bilaterally Cardiovascular: Rate/Rhythm: regular rate, regular rhythm and + bradycardic Gastrointestinal (Abdomen): Inspection/Auscultation: normal bowel sounds; abdomen not distended Percussion/Palpation: abdomen soft; abdomen nontender Neurologic: normal touch/pain/proprioception and moves all extremities Lymphatic: no cervical or axillary lymphadenopathy Results & Data Results & Data Vital Signs (Past 12 Hours) Vital Signs Temp Pulse Resp BP BP Pulse Ox O2 Del Method 12/26/23 14:57 36.3 C L 53 L 20 109/67 94 Room Air 12/26/23 11:11 36.7 C 49 L 18 183/75 H 94 Room Air 12/26/23 08:00 Room Air 12/26/23 07:14 37.0 C 60 18 178/75 H 92 Room Air 12/26/23 04:18 36.5 C 64 144/69 H 91 Room Air Laboratory Results Short CBC 12/26/23 Range/Units 12:00 WBC 8.40 (4.8-10.8) K/ul Hgb 14.5 (12.0-16.0) g/dl Hct 46.2 (37.0-47.0) % Plt Count 295 (130-400) K/uL BMP 12/26/23 12:00 Sodium 138 Potassium 4.4 Chloride 107 Carbon Dioxide 22 BUN 19 Creatinine 1.13 Glucose 100 H Calcium 10.2 Medications Administered Current Inpatient Medications Acetaminophen (Acetaminophen 325 Mg Tab) 650 mg PO Q4H PRN PRN Reason: Pain or Fever Stop: 01/23/24 18:07 Al Hydrox/Mg Hydrox/Simethicone (Aluminum/Magnesium Susp 30 Ml Udc) 15 ml PO Q4H PRN PRN Reason: Dyspepsia Stop: 01/23/24 18:07 Albuterol (Albuterol Hfa 8 Gm Inhaler) 1 puffs INH Q6 PRN PRN Reason: Shortness Of Breath Or Wheezing Stop: 01/23/24 15:47 Amlodipine Besylate (Amlodipine Besylate 5 Mg Tab) 5 mg PO QAM [facility] Stop: 01/25/24 08:59 Last Admin: 12/26/23 08:57 Dose: 5 mg Aspirin (Aspirin 81 Mg Ectab) 81 mg PO QAM [facility] Stop: 01/24/24 08:59 Last Admin: 12/26/23 08:58 Dose: 81 mg Atorvastatin Calcium (Atorvastatin 40 Mg Tab) 80 mg PO HS [facility] Stop: 01/23/24 20:59 Last Admin: 12/25/23 20:29 Dose: 80 mg Atropine Sulfate (Atropine Sulfate 0.1 Mg/Ml 10ml Syr) 1 mg IV Q3M PRN PRN Reason: symptomatic bradycardia Stop: 01/24/24 03:12 Carbidopa/Levodopa (Carbidopa/Levodopa 25/100mg Tab) 1 tab PO TID [facility] Stop: 01/23/24 20:59 Last Admin: 12/26/23 13:49 Dose: 1 tab Donepezil HCl (Donepezil Hcl 5 Mg Tab) 5 mg PO QAM [facility] Stop: 01/24/24 08:59 Last Admin: 12/25/23 08:54 Dose: 5 mg Duloxetine HCl (Duloxetine Hcl 60 Mg Cap) 60 mg PO DAILY [facility] Stop: 01/24/24 08:59 Last Admin: 12/26/23 08:59 Dose: 60 mg Famotidine (Famotidine 20 Mg Tab) 20 mg PO DAILY [facility] Stop: 01/24/24 08:59 Last Admin: 12/26/23 08:58 Dose: 20 mg Ferrous Sulfate (Ferrous Sulfate 325 Mg Tab) 325 mg PO BIDM [facility] Stop: 01/23/24 16:59 Last Admin: 12/26/23 08:57 Dose: 325 mg Gabapentin (Gabapentin 300 Mg Cap) 300 mg PO BID [facility] Stop: 01/23/24 20:59 Last Admin: 12/26/23 08:58 Dose: 300 mg Heparin Sodium/Dextrose (Heparin Sodium/Dextrose) 25,000 units in 500 mls @ 18 mls/hr IV .Q24H [facility]; Protocol Stop: 01/23/24 16:29 Last Admin: 12/25/23 20:30 Dose: 900 units/hr, 18 mls/hr Isosorbide Mononitrate (Isosorbide [place] Extended Rel 30 Mg Tabcr) 30 mg PO QAM [facility] Stop: 01/25/24 11:59 Last Admin: 12/26/23 12:15 Dose: 30 mg Levothyroxine Sodium (Levothyroxine Sodium 75 Mcg Tablet) 75 mcg PO DAILYBB [facility] Stop: 01/24/24 06:29 Last Admin: 12/26/23 05:56 Dose: 75 mcg Losartan Potassium (Losartan Potassium 50 Mg Tab) 50 mg PO DAILY [facility] Stop: 01/26/24 08:59 Magnesium Hydroxide (Magnesium Hydroxide Susp 30 Ml Udc) 30 ml PO Q12H PRN PRN Reason: Constipation Stop: 01/23/24 18:07 Meclizine HCl (Meclizine Hcl 25 Mg Tab) 25 mg PO TID PRN PRN Reason: Dizziness or Vertigo Stop: 01/23/24 18:14 Olanzapine (Olanzapine 10 Mg/2.1 Ml Sdv) 2.5 mg IM ONE PRN PRN Reason: Agitation. Stop: 01/25/24 13:36 Ondansetron HCl (Ondansetron Inj 2 Mg/Ml 2 Ml Vial) 4 mg IV Q6H PRN PRN Reason: Nausea Stop: 01/23/24 18:07 Last Admin: 12/26/23 13:53 Dose: 4 mg Oxybutynin Chloride (Oxybutynin Chloride 5 Mg Tab) 5 mg PO BID [facility] Stop: 01/23/24 20:59 Last Admin: 12/26/23 08:59 Dose: 5 mg Pantoprazole Sodium (Pantoprazole 40 Mg Tab) 40 mg PO QAM [facility] Stop: 01/24/24 08:59 Last Admin: 12/26/23 08:57 Dose: 40 mg Polyethylene Glycol (Polyethylene (Miralax) 17 Gm Pack) 17 gm PO DAILY PRN PRN Reason: Constipation Stop: 01/23/24 18:07 Last Admin: 12/26/23 08:59 Dose: 17 gm Quetiapine Fumarate (Quetiapine Fumarate 300 Mg Tablet) 300 mg PO HS [facility] Stop: 01/25/24 20:59 Ropinirole HCl (Ropinirole Hcl 0.25 Mg Tablet) 0.25 mg PO TID [facility] Stop: 01/23/24 20:59 Last Admin: 12/26/23 13:49 Dose: 0.25 mg
[2023-12-26] MEDS: QUEtiapine FUMARATE 300 MG TABLET PO SCH (21:19)
[2023-12-27 07:02] LABS: Basophils # (auto) 0.06 K/uL (0.00-0.20); Basophils % (auto) 0.8 %; Eosinophils # (auto) 0.44 K/uL (0.00-0.50); Hematocrit (blood only) 39.4 % (37.0-47.0); Hemoglobin 12.8 g/dl (12.0-16.0); Immature Granulocytes # (auto) 0.07 K/uL (0.01-0.20); Lymphocytes # (auto) 1.41 K/uL (1.20-3.40); Lymphocytes % (auto) 19.3 %; Mean Corpuscular Hemoglobin 31.2 pg (25.0-34.0); Mean Corpuscular Hgb Conc 32.5 g/dL (32.0-36.0); Mean Corpuscular Volume 96.1 fL (80.0-100.0); Mean Platelet Volume 10.8 fL (9.4-12.4); Monocytes # (auto) 0.52 K/uL (0.11-0.59); Monocytes % (auto) 7.1 %; Neutrophils % (auto) 65.8 %; Platelet Count 236 K/uL (130-400); RDW Coefficient of Variation 13.7 % (11.5-14.5); RDW Standard Deviation 48.8 fL (36.4-46.3)
[2023-12-27 07:19] LABS: BUN Creatinine Ratio 17.8 (10-20); Calcium 9.6 mg/dl (8.6-10.3); Creatinine Clr Calc Pharmacy 24.9 ml/min; Est GFR (Non-African American) 36.2 ml/min; Magnesium 2.1 mg/dl (1.7-2.4); Potassium 4.7 mmol/L (3.5-5.1)
[2023-12-27 07:53] LABS: ANTI-Xa, UFH(UnfractionatedHep 0.75 IU/ml (0.3-0.7)
[2023-12-27] MEDS ORDERED: LOSARTAN POTASSIUM 50 MG TAB PO SCH (09:00)
--- NOTE | 2023-12-27 09:41 | Cardiology Progress Note ---
Date of Service December 27, 2023 Assessment & Plan (1) New onset a-fib: (2) Bradycardia: (3) ASCVD (arteriosclerotic cardiovascular disease): (4) HTN (hypertension): (5) Dyslipidemia, goal LDL below 70: (6) Ground-level fall: Plan Admitted after a unwitnessed fall Chart history of Parkinson's disease and dementia New onset atrial fibrillation observed on admission. Duration unknown. Echo severe LA dilatation. [id number] Score is at least 4 points. Significant resting bradycardia, probably symptomatic, without improvement off of [place] Minimally elevated troponin. Known ASCVD. Resting echocardiography with preserved LV systolic function, EF 55 to 60%. No wall motion abnormalities. Hypertension, labile blood pressures Dyslipidemia, treated with high intensity statin therapy. Untreated sleep apnea does not seem to be a contributing factor to the bradycardia Recommendations: * Maintain telemetry * NPO after midnight for possible permanent pacemaker implantation * Risks of remote computer terminal operator anticoagulation appear to be greater than the benefit. * No beta-jalen until pacemaker in place. * OK to resume [place] after pacemaker implantation * Continue ASA, statin, and ARB. Admission and Anticipated Discharge Date Admission Date: December 24, 2023 Supervising Physician Co-Signing Physician Notes I have personally performed a history and physical examination on the patient. I have reviewed the advance practitioner's documentation, and I agree with, and take responsibility for the plan of care. 83-year-old female admitted through the emergency department due to unwitnessed fall at [facility]. ECG demonstrating atrial fibrillation (new diagnosis) with slow ventricular response. [place] discontinued on admission, however, slow ventricular response unchanged with heart rates down into the 20s and 30s overnight. N.p.o. except meds after midnight for possible pacemaker implantation in a.m. 12/28/2023. Borderline hypotension this a.m. Discontinue isosorbide monohydrate. Reduce amlodipine to 2.5 mg daily, and losartan to 25 mg daily. Pieter Knutson DO, [facility] Subjective Patient seen and examined. Chart, medications, and telemetry reviewed. BP's labile. Heart rates remain slow on telemetry, currently in the mid 40's, down in to the 30's yesterday afternoon No chest pain, shortness of breath, palpitations, dizziness, near-syncope, orthopnea, PND, or edema. Review of Systems Review of Systems: As above. Otherwise, negative or noncontributory Physical Exam Physical Exam: General: NAD. Markedly hard of hearing. HENT: Normocephalic. Atraumatic. Eyes: PER. Conjunctiva pink, sclera clear. Neck: No carotid bruits. No JVD. No HJR. Heart: Irregularly irregular at 46 bpm. Grade II/ systolic murmur. Lungs: Clear to auscultation. Abdomen: +BS. Soft. Nontender. No masses or organomegaly. Extremities: No clubbing, cyanosis, or edema. Limited neurological examination is without focal deficits. Pulses: Posterior tibial=2/4. Results & Data Vital Signs (Past 12 Hours) Vital Signs Temp Pulse Pulse Resp BP Pulse Ox O2 Del Method 12/27/23 08:06 36.7 C 68 20 80/45 L 97 Room Air 12/27/23 04:08 36.6 C 70 18 103/58 L 97 CPAP 12/27/23 00:14 36.5 C 42 L 19 117/62 94 CPAP 12/26/23 23:05 61 18 98 FiO2 12/27/23 08:06 12/27/23 04:08 12/27/23 00:14 12/26/23 23:05 21 Laboratory Results CBC 12/26/23 12/27/23 Range/Units 12:00 06:35 WBC 8.40 7.30 (4.8-10.8) K/ul RBC 4.88 4.10 L (4.20-5.40) M/uL Hgb 14.5 12.8 (12.0-16.0) g/dl Hct 46.2 39.4 (37.0-47.0) % Plt Count 295 236 (130-400) K/uL Neut # (Auto) 4.80 (1.40-6.50) K/uL Lymph # (Auto) 1.41 (1.20-3.40) K/uL [place] # (Auto) 0.52 (0.11-0.59) K/uL Eos # (Auto) 0.44 (0.00-0.50) K/uL Baso # (Auto) 0.06 (0.00-0.20) K/uL Comprehensive Metabolic Panel 12/26/23 12/27/23 Range/Units 12:00 06:35 Sodium 138 138 (136-145) mmol/L Potassium 4.4 4.7 (3.5-5.1) mmol/L Chloride 107 106 (98-107) mmol/L Carbon Dioxide 22 25 (21-32) mmol/L BUN 19 24 H (6-23) mg/dl Creatinine 1.13 1.35 H (0.6-1.2) mg/dl Glucose 100 H 96 (70-99(Fasting)) mg/dl Calcium 10.2 9.6 (8.6-10.3) mg/dl Intake and Output 12/26/23 12/27/23 12/27/23 22:59 06:59 14:59 Intake Total 685.2 / 1099.8 294.6 / 1099.8 17.1 / 17.1 Balance 685.2 / 1099.8 294.6 / 1099.8 17.1 / 17.1 Intake: IV 445.2 / 619.8 174.6 / 619.8 17.1 / 17.1 Heparin Sodium/Dextrose 25,000 445.2 / 619.8 174.6 / 619.8 17.1 / 17.1 units In 500 ml @ 850 UNITS/HR 17 mls/hr IV .Q24H YULIANA Rx#: [id number] Oral 240 / 480 120 / 480 Other: # Unmeasured Voids 1 1 1
--- NOTE | 2023-12-27 13:43 | Hospitalist Progress Note ---
Date of Service December 27, 2023 Assessment & Plan (1) New onset a-fib: (2) CAD (coronary artery disease): (3) Depression: (4) HTN (hypertension): (5) HLD (hyperlipidemia): (6) Bipolar 2 disorder: Plan Ms. Clark is an 83 year old female that presents to the [facility] after experiencing a ground level fall that occurred today at [facility]. She has been in rate controlled atrial fibrillation since she has been here and does not have a history of atrial fibrillation. She has complaints of being generally weak and lethargic. Unsure if patient had lightheadedness or dizziness prior to her fall. Patient is not a great historian. I s/w daughter Bianca at [phone] who is out of state working and the last time she saw her during the last week of October 2023. Per daughter she has had issues in the past with her heart rate being low, but has never been diagnosed with atrial fibrillation. She has a PMH that includes CAD s/p stent placement x2 done at [facility] in [place] in 2007, CVA, Lewy Body dementia, HTN, hypothyroidism. Lengthy discussion held with patients daughter about benefits vs risks of being on anticoagulation and she has opted to continue with treatment with a Heparin infusion. Her CHADs VASc is a 7. At baseline, she is able to get dressed with assistance and is able to independently feed herself but requires all of her needs to be anticipated and met. Patient will be admitted for further evaluation and management of her new onset atrial fibrillation and fall/generalized weakness. We will obtain an ECHO, TSH, UA, Heparin gtt, Cards consultation, PT/OT and case management consult to assist with placement at SNF. New onset atrial fibrillation: weakness: Which could be secondary to lithium that she has been taking Appreciate cardiology input and recommendation [place] is on hold now and the lithium level has been normal Will talk to the daughter about lithium and will likely need to be psychiatric evaluation to give other medications in place of lithium Will continue to observe in telemetry unit for the need for pacemaker Has not been getting any beta blocking agents CHADs vasc 7 Has been on intravenous heparin now Clinically stable with heart rate around 50s Heart rate remains low even with holding lithium for the last few days Will need pacemaker implantation Bradycardia: History of chronic bradycardia Per daughter she has had bradycardia (50's) since her AMI in 2007. Appears pt was on Metoprolol at one point, but not on current med list ECHO ordered-Showed atrial fibrillation with slow ventricular rate, LVEF was 55 to 60%, mild concentric LVH, left atrium is severely dilated, mild aortic regurgitation, there is mild tricuspid regurgitation, and Doppler finding do not suggest pulmonary hypertension Appreciate cardiology input and recommendation The cause of bradycardia could be secondary to lithium [place] is on hold as above and psychiatric consultation was taken Seroquel has been increased to 300 mg to control bipolar Pacemaker implantation tomorrow and following that we can restart beta-jalen and also lithium Recurrent fall: History of recurrent falls as an outpatient-Recurrent falls could be secondary to cardiac arrhythmia Noted to have atrial fibrillation with slow heart rate May be the cause of her fall is a bradycardia/bradycardia arrhythmia CSCT and head CT negative Hip/Pelvis X-ray negative PT and OT evaluation [place]: Acute serum creatinine 1.25; unsure of baseline fluid challenge and recheck BMP in AM Creatinine has been normalized CAD: Chronic AMI s/p stent placement x1 in 2007 at [facility] Not on any anticoagulation Takes baby ASA; continue Lewy Body Dementia: Chronic Takes Sinemet; continue Takes donepezil;continue Takes Seroquel; continue FAST score: up to and including all of 6 Some sundowning per daughter Do not give any Haldol for any acute mood stabilization as it can aggravate Lewy body dementia HTN: Chronic Takes losartan;continue HLD: Chronic Takes Bipolar Disorder: Chronic Takes [place]; continue check lithium levels Takes duloxetine;continue Appreciate psychiatrist input and recommendation following discontinuation of lithium Seroquel dose has been increased to 300 mg and sertraline has been discontinued Hypothyroidism: Chronic Takes levothyroxine;continue TSH today in ED 2.482 OAB: Chronic Takes oxybutynin;cont Disposition: PCP: Dr. 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 Denies any significant symptoms Heart rate remains low at around 50s 12/27/2023 Patient was seen and examined in telemetry unit Her heart rate went down to below 40s yesterday during daytime and CPAP was applied Heart rate remains on the lower side and will have pacemaker tomorrow Review of Systems Review of Systems: all systems reviewed and are unremarkable except as noted below Physical Exam Physical Exam: lying in bed without any acute distress Constitutional: well developed, well nourished, + ill appearing and + obese Eyes: PERRL, conjunctivae normal, anicteric sclerae ENMT: external ear and nose normal, oropharynx normal Neck: trachea midline, no thyromegaly Respiratory: no respiratory distress Auscultation: lungs clear to auscultation bilaterally Cardiovascular: Rate/Rhythm: regular rate, regular rhythm and + bradycardic Gastrointestinal (Abdomen): Inspection/Auscultation: normal bowel sounds; abdomen not distended Percussion/Palpation: abdomen soft; abdomen nontender Neurologic: normal touch/pain/proprioception and moves all extremities Lymphatic: no cervical or axillary lymphadenopathy Results & Data Results & Data Vital Signs (Past 12 Hours) Vital Signs Temp Pulse Resp BP BP Pulse Ox O2 Del Method 12/27/23 11:35 36.4 C L 65 20 97/41 L 96 Room Air 12/27/23 09:55 45 L 79/47 L 102/62 12/27/23 09:00 Room Air 12/27/23 08:06 36.7 C 68 20 80/45 L 97 Room Air 12/27/23 04:08 36.6 C 70 18 103/58 L 97 CPAP Laboratory Results Short CBC 12/27/23 Range/Units 06:35 WBC 7.30 (4.8-10.8) K/ul Hgb 12.8 (12.0-16.0) g/dl Hct 39.4 (37.0-47.0) % Plt Count 236 (130-400) K/uL BMP 12/26/23 12/27/23 12:00 06:35 Sodium 138 138 Potassium 4.4 4.7 Chloride 107 106 Carbon Dioxide 22 25 BUN 19 24 H Creatinine 1.13 1.35 H Glucose 100 H 96 Calcium 10.2 9.6 Medications Administered Current Inpatient Medications Acetaminophen (Acetaminophen 325 Mg Tab) 650 mg PO Q4H PRN PRN Reason: Pain or Fever Stop: 01/23/24 18:07 Al Hydrox/Mg Hydrox/Simethicone (Aluminum/Magnesium Susp 30 Ml Udc) 15 ml PO Q4H PRN PRN Reason: Dyspepsia Stop: 01/23/24 18:07 Albuterol (Albuterol Hfa 8 Gm Inhaler) 1 puffs INH Q6 PRN PRN Reason: Shortness Of Breath Or Wheezing Stop: 01/23/24 15:47 Amlodipine Besylate (Amlodipine Besylate 5 Mg Tab) 2.5 mg PO QAM [facility] Stop: 01/27/24 08:59 Aspirin (Aspirin 81 Mg Ectab) 81 mg PO QAM YULIANA Stop: 01/24/24 08:59 Last Admin: 12/27/23 09:06 Dose: 81 mg Atorvastatin Calcium (Atorvastatin 40 Mg Tab) 80 mg PO HS YULIANA Stop: 01/23/24 20:59 Last Admin: 12/26/23 21:19 Dose: 80 mg Atropine Sulfate (Atropine Sulfate 0.1 Mg/Ml 10ml Syr) 1 mg IV Q3M PRN PRN Reason: symptomatic bradycardia Stop: 01/24/24 03:12 Carbidopa/Levodopa (Carbidopa/Levodopa 25/100mg Tab) 1 tab PO TID YULIANA Stop: 01/23/24 20:59 Last Admin: 12/27/23 09:05 Dose: 1 tab Donepezil HCl (Donepezil Hcl 5 Mg Tab) 5 mg PO QAM [facility] Stop: 01/24/24 08:59 Last Admin: 12/25/23 08:54 Dose: 5 mg Duloxetine HCl (Duloxetine Hcl 60 Mg Cap) 60 mg PO DAILY YULIANA Stop: 01/24/24 08:59 Last Admin: 12/27/23 09:06 Dose: 60 mg Famotidine (Famotidine 20 Mg Tab) 20 mg PO DAILY YULIANA Stop: 01/24/24 08:59 Last Admin: 12/27/23 09:06 Dose: 20 mg Ferrous Sulfate (Ferrous Sulfate 325 Mg Tab) 325 mg PO BIDM YULIANA Stop: 01/23/24 16:59 Last Admin: 12/27/23 09:04 Dose: 325 mg Gabapentin (Gabapentin 300 Mg Cap) 300 mg PO BID YULIANA Stop: 01/23/24 20:59 Last Admin: 12/27/23 09:05 Dose: 300 mg Heparin Sodium/Dextrose (Heparin Sodium/Dextrose) 25,000 units in 500 mls @ 17 mls/hr IV .Q24H YULIANA; Protocol Stop: 01/23/24 16:29 Last Titration: 12/27/23 07:53 Dose: 850 units/hr, 17 mls/hr Levothyroxine Sodium (Levothyroxine Sodium 75 Mcg Tablet) 75 mcg PO DAILYBB YULIANA Stop: 01/24/24 06:29 Last Admin: 12/27/23 06:25 Dose: 75 mcg Losartan Potassium (Losartan Potassium 25 Mg Tab) 25 mg PO DAILY YULIANA Stop: 01/27/24 08:59 Magnesium Hydroxide (Magnesium Hydroxide Susp 30 Ml Udc) 30 ml PO Q12H PRN PRN Reason: Constipation Stop: 01/23/24 18:07 Meclizine HCl (Meclizine Hcl 25 Mg Tab) 25 mg PO TID PRN PRN Reason: Dizziness or Vertigo Stop: 01/23/24 18:14 Olanzapine (Olanzapine 10 Mg/2.1 Ml Sdv) 2.5 mg IM ONE PRN PRN Reason: Agitation. Stop: 01/25/24 13:36 Ondansetron HCl (Ondansetron Inj 2 Mg/Ml 2 Ml Vial) 4 mg IV Q6H PRN PRN Reason: Nausea Stop: 01/23/24 18:07 Last Admin: 12/26/23 13:53 Dose: 4 mg Oxybutynin Chloride (Oxybutynin Chloride 5 Mg Tab) 5 mg PO BID [facility] Stop: 01/23/24 20:59 Last Admin: 12/27/23 09:05 Dose: 5 mg Pantoprazole Sodium (Pantoprazole 40 Mg Tab) 40 mg PO QAM [facility] Stop: 01/24/24 08:59 Last Admin: 12/27/23 09:06 Dose: 40 mg Polyethylene Glycol (Polyethylene (Miralax) 17 Gm Pack) 17 gm PO DAILY PRN PRN Reason: Constipation Stop: 01/23/24 18:07 Last Admin: 12/27/23 09:07 Dose: 17 gm Quetiapine Fumarate (Quetiapine Fumarate 300 Mg Tablet) 300 mg PO HS [facility] Stop: 01/25/24 20:59 Last Admin: 12/26/23 21:19 Dose: 300 mg Ropinirole HCl (Ropinirole Hcl 0.25 Mg Tablet) 0.25 mg PO TID [facility] Stop: 01/23/24 20:59 Last Admin: 12/27/23 09:05 Dose: 0.25 mg
[2023-12-27 14:48] LABS: ANTI-Xa, UFH(UnfractionatedHep 0.65 IU/ml (0.3-0.7)
--- NOTE | 2023-12-27 16:33 | Electrocardiogram Report ---
Test Reason : Blood Pressure : */* mmHG Vent. Rate : 58 BPM Atrial Rate : 81 BPM P-R Int : * ms QRS Dur : 90 ms QT Int : 322 ms P-R-T Axes : * -49 168 degrees QTcB Int : 316 ms Atrial fibrillation with slow ventricular response Left axis deviation Minimal voltage criteria for LVH, may be normal variant Inferior infarct , age undetermined Abnormal ECG When compared with ECG of 25-Dec-2023 03:49, No significant change was found Confirmed by Elyssa Sam ([id number]) on 12/27/2023 4:32:49 PM Referred By: REFERRED SELF Confirmed By: Elyssa Sam
--- NOTE | 2023-12-27 16:43 | Electrocardiogram Report ---
Test Reason : Blood Pressure : */* mmHG Vent. Rate : 45 BPM Atrial Rate : 53 BPM P-R Int : * ms QRS Dur : 84 ms QT Int : 472 ms P-R-T Axes : * -53 -80 degrees QTcB Int : 408 ms Atrial fibrillation with slow ventricular response Left axis deviation Inferior infarct (cited on or before 26-Dec-2023) Abnormal ECG When compared with ECG of 26-Dec-2023 07:50, (unconfirmed) T wave inversion now evident in Inferior leads T wave inversion less evident in Lateral leads QT has lengthened Confirmed by Elyssa Sam (Nick) on 12/27/2023 4:42:43 PM Referred By: REFERRED SELF Confirmed By: Elyssa Sam
[2023-12-27] MEDS: ALBUTEROL HFA 8 GM INHALER INH PRN (20:08)
[2023-12-27 21:33] LABS: ANTI-Xa, UFH(UnfractionatedHep 0.67 IU/ml (0.3-0.7)
[2023-12-27] MEDS: ALBUT/IPRATROP 3MG/0.5MG NEB 3 ML VIAL NEB STA (23:00)
--- NOTE | 2023-12-28 00:19 | Communication Note ---
Date of Service: December 27, 2023 Patient noted to be wheezy as per RN. Patient comfortable as per RN. Chronic cough symptoms. Possible aspiration concerns given cough after pill administration this evening as per RN. 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
[2023-12-28] MEDS: MAGNESIUM HYDROXIDE SUSP 30 ML UDC PO PRN (05:42)
--- NOTE | 2023-12-28 06:52 | XRay Report ---
XR chest 1V portable CLINICAL HISTORY: wheeze TECHNIQUE: Single frontal radiograph of the chest was obtained. Comparison: Comparison is made to chest radiograph 09/10/2015 FINDINGS: No lines and tubes are seen. Cardiomegaly is noted. The aortic arch is calcified. The lungs are clear . No evidence of pleural effusion or pneumothorax. IMPRESSION: No acute chest disease. ACT 112: Negative or not required by law. Electronically signed by: Cristino Kapadia M.D. 12/28/2023 6:50 AM
[2023-12-28 08:42] LABS: ANTI-Xa, UFH(UnfractionatedHep 0.56 IU/ml (0.3-0.7)
[2023-12-28 09:07] LABS: Calcium 9.8 mg/dl (8.6-10.3); Magnesium 2.2 mg/dl (1.7-2.4); Potassium 4.9 mmol/L (3.5-5.1)
[2023-12-28 09:12] LABS: BUN Creatinine Ratio 17.6 (10-20); Creatinine Clr Calc Pharmacy 23.6 ml/min; Est GFR (African American) 39.5 ml/min; Est GFR (Non-African American) 34.1 ml/min
--- NOTE | 2023-12-28 10:21 | Pre Anesthesia Assessment ---
Date of Service December 28, 2023 Pre Sedation Assessment Vital Signs Temp Pulse Pulse Resp BP BP Pulse Ox 12/28/23 10:01 12/28/23 09:50 70 19 118/60 90 12/28/23 07:43 36.3 C L 53 L 18 141/78 H 93 12/28/23 04:09 36.4 C L 56 L 18 139/65 91 12/28/23 03:36 22 99 12/27/23 23:51 52 L 12/27/23 23:46 36.4 C L 51 L 17 118/58 L 100 12/27/23 23:02 20 94 12/27/23 23:00 19 95 12/27/23 22:15 12/27/23 20:09 56 L 20 118/66 97 12/27/23 15:43 36.6 C 61 20 116/65 99 12/27/23 11:35 36.4 C L 65 20 97/41 L 96 O2 Del Method FiO2 12/28/23 10:01 Room Air 12/28/23 09:50 Room Air 12/28/23 07:43 Room Air 12/28/23 04:09 CPAP 12/28/23 03:36 21 12/27/23 23:51 12/27/23 23:46 CPAP 12/27/23 23:02 CPAP 12/27/23 23:00 21 12/27/23 22:15 Room Air 12/27/23 20:09 Room Air 12/27/23 15:43 Room Air 12/27/23 11:35 Room Air Cardiovascular + bradycardic and + irregularly irregular Respiratory + respiratory effort normal Pre-Sedation Airway Assessment Smoking Status: Never smoker Hx Sleep Apnea: Yes Hx Difficult Intubation: No Short, Thick Neck: Yes Thyromental Distance: > or= 3.5 Finger Breadths Oral Cavity: + WNL Mallampati Class: II ASA: ASA2 NPO Status Date of Last Intake of Fluids: 12/27/23 Date of Last Intake of Solid Food: 12/27/23 Procedure Planning Contraindications for Sedation: none Current Medications Reviewed: Yes Notes The planned sedation has been discussed with the patient. Informed Consent was obtained. I have identified the patient, determined the appropriateness of sedation and have assessed the patient immediately prior to the procedure. All medicine(s) and interventions are by my order.
--- NOTE | 2023-12-28 10:46 | Cardiology Progress Note ---
Date of Service December 28, 2023 Assessment & Plan (1) New onset a-fib: (2) Bradycardia: (3) ASCVD (arteriosclerotic cardiovascular disease): (4) HTN (hypertension): (5) Dyslipidemia, goal LDL below 70: (6) Ground-level fall: Plan Admitted after a unwitnessed fall Chart history of Parkinson's disease and dementia New onset atrial fibrillation observed on admission. Duration unknown. Echo severe LA dilatation. [id number] Score is at least 4 points. Significant resting bradycardia, probably symptomatic, without improvement off of [place] Minimally elevated troponin. Known ASCVD. Resting echocardiography with preserved LV systolic function, EF 55 to 60%. No wall motion abnormalities. Hypertension, labile blood pressures Dyslipidemia, treated with high intensity statin therapy. Untreated sleep apnea does not seem to be a contributing factor to the bradycardia Recommendations: * Maintain telemetry * NPO after midnight for possible permanent pacemaker implantation * Risks of medical terminologist anticoagulation appear to be greater than the benefit. * No beta-jalen until pacemaker in place. * OK to resume [place] after pacemaker implantation * Continue ASA, statin, and ARB. 12/28/2023 No acute changes still intermittently bradycardic. Off lithium Plan pacemaker insertion today single-chamber device Resume lithium after device in place Anticoagulation risks as noted Admission and Anticipated Discharge Date Admission Date: December 24, 2023 Subjective Patient seen and examined, chart, medications, telemetry reviewed. No cardiac complaints this morning aroused from sleep. Mildly lethargic No chest pain shortness of breath Telemetry still with intermittent bradycardia arrhythmias, heart rates 20s and 30s last evening with persistent atrial fibrillation Review of Systems Review of Systems: All systems reviewed & are unremarkable except as noted in Subjective Physical Exam Constitutional: + obese; no acute distress Eyes: PERRL, conjunctivae normal, anicteric sclerae ENMT: external ear and nose normal, oropharynx normal Respiratory: Auscultation: + diminished lung sounds; no rales Cardiovascular: Rate/Rhythm: + bradycardic and + irregularly irregular Vessels: no JVD Extremities: no edema Gastrointestinal (Abdomen): normal bowel sounds, soft, nontender, no hepatosplenomegaly Results & Data Vital Signs (Past 12 Hours) Vital Signs Temp Pulse Pulse Resp BP BP Pulse Ox 12/28/23 10:01 12/28/23 09:50 70 19 118/60 90 12/28/23 07:43 36.3 C L 53 L 18 141/78 H 93 12/28/23 04:09 36.4 C L 56 L 18 139/65 91 12/28/23 03:36 22 99 12/27/23 23:51 52 L 12/27/23 23:46 36.4 C L 51 L 17 118/58 L 100 12/27/23 23:02 20 94 12/27/23 23:00 19 95 O2 Del Method FiO2 12/28/23 10:01 Room Air 12/28/23 09:50 Room Air 12/28/23 07:43 Room Air 12/28/23 04:09 CPAP 12/28/23 03:36 21 12/27/23 23:51 12/27/23 23:46 CPAP 12/27/23 23:02 CPAP 12/27/23 23:00 21 Laboratory Results Laboratory Results - last 24 hr 12/27/23 12/27/23 12/28/23 14:21 20:47 07:52 Heparin Anti-Xa, Unfract 0.65 0.67 0.56 Sodium 138 Potassium 4.9 Chloride 105 Carbon Dioxide 26 Anion Gap 7 BUN 25 H Creatinine 1.42 H Est Cr Clr Drug Dosing 23.6 Est GFR ( Amer) 39.5 Est GFR (Non-Af Amer) 34.1 BUN/Creatinine Ratio 17.6 Glucose 96 Calcium 9.8 Magnesium 2.2
[2023-12-28] MEDS: LIDOCAINE 1% LOCAL 20 ML VIAL ONE (11:07)
[2023-12-28] MEDS: BUPIVACAINE 0.25% PF 30 ML VIAL ONE (11:08)
[2023-12-28] MEDS: ceFAZolin 330 MG/ML 1 GM VIAL ONE (11:08)
[2023-12-28] MEDS: VANCOMYCIN HCL 1000MG/20ML VIAL ONE (11:08)
[2023-12-28] MEDS: WATER, STERILE FOR INJ 10 ML VIAL ONE (11:08)
[2023-12-28] MEDS: fentaNYL citrate PF 100 MCG/2 ML VIAL ONE (11:57)
[2023-12-28] MEDS: MIDAZOLAM HCL 5 MG/ML 1 ML VIAL ONE (11:57)
--- NOTE | 2023-12-28 12:04 | Electrophysiology Report ---
Date of Service December 28, 2023 Electrophysiology Procedure Electrophysiology Procedure Report Procedure performed: Implantation of single-chamber pacemaker with left bundle pacing lead Staff lunchroom mother: Abrahan Faulkner MD Indication: The patient is an 83-year-old woman with a history of atrial fibrillation and an unwitnessed fall. She was noted during hospitalization to have episodes of bradycardia and advised undergo implantation of a pacemaker for symptomatic nonreversible AV node dysfunction. Procedure in detail: The patient and her power of criminal defense attorney were informed of the risks benefits and alternatives to the intended procedure and she wished to proceed. She was taken to the electrophysiology suite in a fasting state. A preoperative antibiotic had been administered. The patient was monitored electrocardiographically throughout today's procedure and conscious sedation was administered per protocol. The left upper pectoral area is prepped and draped in usual sterile fashion. This area was anesthetized using subcutaneous administration of a xylocaine solution. An incision was made at this site and carried down to the prepectoralis fascia using sharp dissection. Electrocautery was also employed for dissection as well as for hemostasis. A device pocket was fashioned tissues above the pectoralis muscle. Subsequent to this maneuver the left axillary vein was accessed using modified Seldinger technique. Sheath was placed over guidewire and used to facilitate passage of a guiding catheter for mapping of the interventricular septum. Once an appropriate location was identified a pacing lead was advanced into the interventricular septum until the appropriate electrophysiologic characteristics were obtained. At this point the guiding catheter was removed. The proximal portion lead was then sutured the prepectoralis fascia using nonabsorbable suture. The proximal portion of the lead was then sutured the prepectoral fascia using nonabsorbable suture. The device pocket was irrigated with antibiotic solution. The lead was then attached to the device. The device and leads were then placed in the pocket and pocket was closed in 3 layers of absorbable suture. Steri-Strips and sterile dressing were applied. The device was tested noninvasively prior to conclusion the procedure. The patient tolerated procedure well there no immediate complications. Equipment used: New pulse generator: Acid Filler [employer]. Model number: [id number] serial number [id number] Right ventricular lead: Acid Filler [employer]. Model number: [id number] serial number [id number] Measured data: Right ventricular lead: R waves measured 18.1 mV. Pacing threshold was 0.5 V at 0.4 ms with a pacing impedance of 913 ohms Impression: Successful implantation of single-chamber pacemaker with left bundle pacing lead [facility] Electrophysiology codes Pacing Procedure 1: Pacin Insert/Replace Pacer V
[2023-12-28] MEDS: amLODIPine BESYLATE 5 MG TAB PO SCH (13:04)
[2023-12-28] MEDS: LOSARTAN POTASSIUM 25 MG TAB PO SCH (13:05)
--- NOTE | 2023-12-28 13:40 | Hospitalist Progress Note ---
Date of Service December 28, 2023 Assessment & Plan (1) New onset a-fib: (2) CAD (coronary artery disease): (3) Depression: (4) HTN (hypertension): (5) HLD (hyperlipidemia): (6) Bipolar 2 disorder: Plan Ms. Clark is an 83 year old female that presents to the [facility] after experiencing a ground level fall that occurred today at [facility]. She has been in rate controlled atrial fibrillation since she has been here and does not have a history of atrial fibrillation. She has complaints of being generally weak and lethargic. Unsure if patient had lightheadedness or dizziness prior to her fall. Patient is not a great historian. I s/w daughter Bianca at [phone] who is out of state working and the last time she saw her during the last week of October 2023. Per daughter she has had issues in the past with her heart rate being low, but has never been diagnosed with atrial fibrillation. She has a PMH that includes CAD s/p stent placement x2 done at [facility] in [place] in 2007, CVA, Lewy Body dementia, HTN, hypothyroidism. Lengthy discussion held with patients daughter about benefits vs risks of being on anticoagulation and she has opted to continue with treatment with a Heparin infusion. Her CHADs VASc is a 7. At baseline, she is able to get dressed with assistance and is able to independently feed herself but requires all of her needs to be anticipated and met. Patient will be admitted for further evaluation and management of her new onset atrial fibrillation and fall/generalized weakness. We will obtain an ECHO, TSH, UA, Heparin gtt, Cards consultation, PT/OT and case management consult to assist with placement at SNF. New onset atrial fibrillation: weakness: Which could be secondary to lithium that she has been taking Appreciate cardiology input and recommendation [place] is on hold now and the lithium level has been normal Will talk to the daughter about lithium and will likely need to be psychiatric evaluation to give other medications in place of lithium Will continue to observe in telemetry unit for the need for pacemaker Has not been getting any beta blocking agents CHADs vasc 7 Has been on intravenous heparin now Clinically stable with heart rate around 50s Heart rate remains low even with holding lithium for the last few days Rate remains low and will have PPM placement today Will get PT OT evaluation with a possible discharge in a day or 2 Bradycardia: History of chronic bradycardia Per daughter she has had bradycardia (50's) since her AMI in 2007. Appears pt was on Metoprolol at one point, but not on current med list ECHO ordered-Showed atrial fibrillation with slow ventricular rate, LVEF was 55 to 60%, mild concentric LVH, left atrium is severely dilated, mild aortic regurgitation, there is mild tricuspid regurgitation, and Doppler finding do not suggest pulmonary hypertension Appreciate cardiology input and recommendation The cause of bradycardia could be secondary to lithium [place] is on hold as above and psychiatric consultation was taken Seroquel has been increased to 300 mg to control bipolar Pacemaker implantation tomorrow and following that we can restart beta-jalen and also lithium Status post pacemaker placement today Recurrent fall: History of recurrent falls as an outpatient-Recurrent falls could be secondary to cardiac arrhythmia Noted to have atrial fibrillation with slow heart rate May be the cause of her fall is a bradycardia/bradycardia arrhythmia CSCT and head CT negative Hip/Pelvis X-ray negative PT and OT evaluation Has had PT and OT evaluation and recommended PCF [place]: Acute serum creatinine 1.25; unsure of baseline fluid challenge and recheck BMP in AM Creatinine has been normalized CAD: Chronic AMI s/p stent placement x1 in 2007 at [facility] Not on any anticoagulation Takes baby ASA; continue Lewy Body Dementia: Chronic Takes Sinemet; continue Takes donepezil;continue Takes Seroquel; continue FAST score: up to and including all of 6 Some per daughter Do not give any Haldol for any acute mood stabilization as it can aggravate Lewy body dementia HTN: Chronic Takes losartan;continue HLD: Chronic Takes Bipolar Disorder: Chronic Takes [place]; continue check lithium levels Takes duloxetine;continue Appreciate psychiatrist input and recommendation following discontinuation of lithium Seroquel dose has been increased to 300 mg and sertraline has been discontinued Hypothyroidism: Chronic Takes levothyroxine;continue TSH today in ED 2.482 OAB: Chronic Takes oxybutynin;cont Disposition: PCP: Dr. 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 Denies any significant symptoms Heart rate remains low at around 50s 12/27/2023 Patient was seen and examined in telemetry unit Her heart rate went down to below 40s yesterday during daytime and CPAP was severo lied Heart rate remains on the lower side and will have pacemaker tomorrow 12/28/2023 The patient was seen and examined in telemetry unit She was communicated through writing She will have permanent pacemaker placement today Review of Systems Review of Systems: all systems reviewed and are unremarkable except as noted below Physical Exam Physical Exam: lying in bed without any acute distress Constitutional: well developed, well nourished, + ill appearing and + obese Eyes: PERRL, conjunctivae normal, anicteric sclerae ENMT: external ear and nose normal, oropharynx normal Neck: trachea midline, no thyromegaly Respiratory: no respiratory distress Auscultation: lungs clear to auscultation bilaterally Cardiovascular: Rate/Rhythm: regular rate, regular rhythm and + bradycardic Gastrointestinal (Abdomen): Inspection/Auscultation: normal bowel sounds; abdomen not distended Percussion/Palpation: abdomen soft; abdomen nontender Neurologic: normal touch/pain/proprioception and moves all extremities Lymphatic: no cervical or axillary lymphadenopathy Results & Data Results & Data Vital Signs (Past 12 Hours) Vital Signs Temp Pulse Pulse Resp BP BP BP 12/28/23 12:27 60 14 159/63 H 12/28/23 12:13 60 14 141/70 H 12/28/23 10:01 12/28/23 09:50 70 19 118/60 12/28/23 07:43 36.3 C L 53 L 18 141/78 H 12/28/23 04:09 36.4 C L 56 L 18 139/65 12/28/23 03:36 22 Pulse Ox O2 Del Method FiO2 12/28/23 12:27 91 Room Air 12/28/23 12:13 91 Room Air 12/28/23 10:01 Room Air 12/28/23 09:50 90 Room Air 12/28/23 07:43 93 Room Air 12/28/23 04:09 91 CPAP 12/28/23 03:36 99 21 Laboratory Results BMP 12/28/23 07:52 Sodium 138 Potassium 4.9 Chloride 105 Carbon Dioxide 26 BUN 25 H Creatinine 1.42 H Glucose 96 Calcium 9.8 Medications Administered Current Inpatient Medications Acetaminophen (Acetaminophen 325 Mg Tab) 650 mg PO Q4H PRN PRN Reason: Pain or Fever Stop: 01/23/24 18:07 Al Hydrox/Mg Hydrox/Simethicone (Aluminum/Magnesium Susp 30 Ml Udc) 15 ml PO Q4H PRN PRN Reason: Dyspepsia Stop: 01/23/24 18:07 Albuterol (Albuterol Hfa 8 Gm Inhaler) 1 puffs INH Q6 PRN PRN Reason: Shortness Of Breath Or Wheezing Stop: 01/23/24 15:47 Last Admin: 12/27/23 20:08 Dose: 1 puffs Albuterol (Albut/Ipratrop 3mg/0.5mg Neb 3 Ml Vial) 3 ml NEB Q2H PRN; Protocol PRN Reason: sob wheeze Stop: 01/26/24 22:34 Amlodipine Besylate (Amlodipine Besylate 5 Mg Tab) 2.5 mg PO QAM [facility] Stop: 01/27/24 08:59 Last Admin: 12/28/23 13:04 Dose: 2.5 mg Aspirin (Aspirin 81 Mg Ectab) 81 mg PO QAM [facility] Stop: 01/24/24 08:59 Last Admin: 12/28/23 13:06 Dose: 81 mg Atorvastatin Calcium (Atorvastatin 40 Mg Tab) 80 mg PO HS [facility] Stop: 01/23/24 20:59 Last Admin: 12/27/23 20:48 Dose: 80 mg Atropine Sulfate (Atropine Sulfate 0.1 Mg/Ml 10ml Syr) 1 mg IV Q3M PRN PRN Reason: symptomatic bradycardia Stop: 01/24/24 03:12 Carbidopa/Levodopa (Carbidopa/Levodopa 25/100mg Tab) 1 tab PO TID [facility] Stop: 01/23/24 20:59 Last Admin: 12/28/23 13:05 Dose: 1 tab Donepezil HCl (Donepezil Hcl 5 Mg Tab) 5 mg PO QAM [facility] Stop: 01/24/24 08:59 Last Admin: 12/25/23 08:54 Dose: 5 mg Duloxetine HCl (Duloxetine Hcl 60 Mg Cap) 60 mg PO DAILY [facility] Stop: 01/24/24 08:59 Last Admin: 12/28/23 13:03 Dose: 60 mg Famotidine (Famotidine 20 Mg Tab) 20 mg PO DAILY [facility] Stop: 01/24/24 08:59 Last Admin: 12/28/23 13:04 Dose: 20 mg Ferrous Sulfate (Ferrous Sulfate 325 Mg Tab) 325 mg PO BIDM [facility] Stop: 01/23/24 16:59 Last Admin: 12/28/23 13:07 Dose: 325 mg Gabapentin (Gabapentin 300 Mg Cap) 300 mg PO BID [facility] Stop: 01/23/24 20:59 Last Admin: 12/28/23 13:06 Dose: 300 mg Cefazolin Sodium (Ancef 1000mg) 1,000 mg in 7.5 mls @ 2.5 mls/min IV ONE ONE; Protocol Stop: 12/28/23 17:02 Levothyroxine Sodium (Levothyroxine Sodium 75 Mcg Tablet) 75 mcg PO DAILYBB [facility] Stop: 01/24/24 06:29 Last Admin: 12/28/23 05:42 Dose: 75 mcg Losartan Potassium (Losartan Potassium 25 Mg Tab) 25 mg PO DAILY [facility] Stop: 01/27/24 08:59 Last Admin: 12/28/23 13:05 Dose: 25 mg Magnesium Hydroxide (Magnesium Hydroxide Susp 30 Ml Udc) 30 ml PO Q12H PRN PRN Reason: Constipation Stop: 01/23/24 18:07 Meclizine HCl (Meclizine Hcl 25 Mg Tab) 25 mg PO TID PRN PRN Reason: Dizziness or Vertigo Stop: 01/23/24 18:14 Olanzapine (Olanzapine 10 Mg/2.1 Ml Sdv) 2.5 mg IM ONE PRN PRN Reason: Agitation. Stop: 01/25/24 13:36 Ondansetron HCl (Ondansetron Inj 2 Mg/Ml 2 Ml Vial) 4 mg IV Q6H PRN PRN Reason: Nausea Stop: 01/23/24 18:07 Last Admin: 12/26/23 13:53 Dose: 4 mg Oxybutynin Chloride (Oxybutynin Chloride 5 Mg Tab) 5 mg PO BID [facility] Stop: 01/23/24 20:59 Last Admin: 12/28/23 13:08 Dose: 5 mg Pantoprazole Sodium (Pantoprazole 40 Mg Tab) 40 mg PO QAM [facility] Stop: 01/24/24 08:59 Last Admin: 12/28/23 13:08 Dose: 40 mg Polyethylene Glycol (Polyethylene (Miralax) 17 Gm Pack) 17 gm PO DAILY PRN PRN Reason: Constipation Stop: 01/23/24 18:07 Last Admin: 12/27/23 09:07 Dose: 17 gm Quetiapine Fumarate (Quetiapine Fumarate 300 Mg Tablet) 300 mg PO HS [facility] Stop: 01/25/24 20:59 Last Admin: 12/27/23 20:49 Dose: 300 mg Ropinirole HCl (Ropinirole Hcl 0.25 Mg Tablet) 0.25 mg PO TID [facility] Stop: 01/23/24 20:59 Last Admin: 12/28/23 13:08 Dose: 0.25 mg
[2023-12-28] MEDS: ceFAZolin 1000MG 1,000 MG/7.5 ML SYR IV ONE (17:55)
--- NOTE | 2023-12-29 07:29 | XRay Report ---
XR chest 2V PA/lateral HISTORY: 83 years-old Female EXACT TIME ORDERED Evaluate for pneumothorax and l status post placemen t of a left-sided subclavian pacer COMPARISON: 12/27/2023 TECHNIQUE: PA and lateral views of the chest FINDINGS: Cardiac silhouette is enlarged. Pulmonary vascular congestion with interstitial coarsening. Trace ple ural effusions with mild bibasilar atelectasis. Status post placement of a left subclavian single angela d pacer. No definite postprocedural pneumothorax identified. The bones appear intact. Degenerative po stoperative changes in the spine. IMPRESSION: 1. Status post placement of a single lead left subclavian pacer. 2. No postprocedural pneumothorax identified. 3. Cardiomegaly with suggestion of mild interstitial pulmonary edema with trace pleural effusions. ACT 112: Negative or not required by law. The above report was generated using voice recognition software. It may contain grammatical, syntax o r spelling errors. Electronically signed by: Dipak Solorio M.D. 12/29/2023 7:28 AM
[2023-12-29 07:59] LABS: Basophils # (auto) 0.02 K/uL (0.00-0.20); Basophils % (auto) 0.3 %; Eosinophils # (auto) 0.32 K/uL (0.00-0.50); Eosinophils % (auto) 4.3 %; Hematocrit (blood only) 40.8 % (37.0-47.0); Hemoglobin 13.4 g/dl (12.0-16.0); Immature Granulocytes # (auto) 0.03 K/uL (0.01-0.20); Immature Granulocytes % (auto) 0.4 %; Lymphocytes # (auto) 0.67 K/uL (1.20-3.40); Lymphocytes % (auto) 9.1 %; Mean Corpuscular Hemoglobin 30.5 pg (25.0-34.0); Mean Corpuscular Hgb Conc 32.8 g/dL (32.0-36.0); Mean Corpuscular Volume 92.9 fL (80.0-100.0); Mean Platelet Volume 10.5 fL (9.4-12.4); Monocytes # (auto) 0.59 K/uL (0.11-0.59); Neutrophils # (auto) 5.77 K/uL (1.40-6.50); Neutrophils % (auto) 77.9 %; Platelet Count 258 K/uL (130-400); RDW Standard Deviation 47.8 fL (36.4-46.3); Red Blood Count 4.39 M/uL (4.20-5.40)
[2023-12-29 08:22] LABS: BUN Creatinine Ratio 17.5 (10-20); Calcium 10.1 mg/dl (8.6-10.3); Creatinine Clr Calc Pharmacy 27.3 ml/min; Est GFR (African American) 45.6 ml/min; Est GFR (Non-African American) 39.4 ml/min; Magnesium 2.1 mg/dl (1.7-2.4); Potassium 4.7 mmol/L (3.5-5.1)
--- NOTE | 2023-12-29 10:18 | Cardiology Progress Note ---
Date of Service December 29, 2023 Assessment & Plan (1) Bradycardia: Plan 1. Bradycardia: Patient underwent successful implantation of single-chamber permanent pacemaker yesterday. No overt complication. Normal device function. Her sling can be removed at any time provided she does not perform significant stretching with the left arm. I will place some standard restrictions in her discharge summary. From a pacemaker standpoint she should keep the wound dry and the Steri-Strips intact for at least 5 days. She should also refrain from lifting left arm above the shoulder behind the neck for 6 weeks. Admission and Anticipated Discharge Date Admission Date: December 24, 2023 Subjective The patient was somnolent but arousable. She did respond to questions. Some pain at the device implant site. Physical Exam Physical Exam: Evaluation the device implant site reveals some mild ecchymosis. No overt drainage. No significant erythema. Perhaps a small hematoma. Results & Data Vital Signs (Past 12 Hours) Vital Signs Temp Pulse Pulse Resp BP Pulse Ox O2 Del Method 12/29/23 07:37 37.3 C 68 17 135/79 94 Room Air 12/29/23 04:04 37.2 C 73 18 108/76 93 Room Air 12/29/23 03:52 72 17 99 12/28/23 23:08 74 12/28/23 22:55 35.9 C L 74 16 114/59 L 74 L BiPAP FiO2 12/29/23 07:37 12/29/23 04:04 12/29/23 03:52 21 12/28/23 23:08 12/28/23 22:55 Diagnostic Findings Chest x-ray demonstrated stable lead position without pneumothorax I performed a complete device interrogation which revealed normal function on the ventricular lead.
--- NOTE | 2023-12-29 11:30 | XRay Report ---
XR chest 1V portable CLINICAL HISTORY: Congestive heart failure. COMPARISON STUDY: Chest radiograph December 29, 2023 at 6:45 AM. FINDINGS: Left subclavian pacer is in place. There is no pneumothorax. Possible small bilateral pleur al effusions are again noted. Lung volumes are diminished. This favors a hypoventilatory study. Bibas ilar opacities favor atelectasis. Cardiomegaly is again noted. Interstitial thickening is slightly im proved. IMPRESSION: 1. Cardiomegaly. Apparent improvement in pulmonary edema which may be technical. 2. Hypoventilatory study. Bibasilar opacities which favor atelectasis. Possible small bilateral pleur al effusions. ACT 112: Negative or not required by law. Electronically signed by: Ced Wills M.D. 12/29/2023 11:29 AM
[2023-12-29] MEDS: LITHIUM CARBONATE 300 MG TAB PO SCH ×2 (11:37→12:20)
--- NOTE | 2023-12-29 11:38 | Cardiology Progress Note ---
Date of Service December 29, 2023 Assessment & Plan (1) New onset a-fib: (2) Bradycardia: (3) ASCVD (arteriosclerotic cardiovascular disease): (4) HTN (hypertension): (5) Dyslipidemia, goal LDL below 70: (6) Ground-level fall: Plan Admitted after a unwitnessed fall Chart history of Parkinson's disease and dementia New onset atrial fibrillation observed on admission. Duration unknown. Echo severe LA dilatation. [id number] Score is at least 4 points. Significant resting bradycardia, probably symptomatic, without improvement off of [place] Minimally elevated troponin. Known ASCVD. Resting echocardiography with preserved LV systolic function, EF 55 to 60%. No wall motion abnormalities. Hypertension, labile blood pressures Dyslipidemia, treated with high intensity statin therapy. Untreated sleep apnea does not seem to be a contributing factor to the bradycardia Recommendations: * Maintain telemetry * NPO after midnight for possible permanent pacemaker implantation * Risks of residential anticoagulation appear to be greater than the benefit. * No beta-jalen until pacemaker in place. * OK to resume [place] after pacemaker implantation * Continue ASA, statin, and ARB. 12/28/2023 No acute changes still intermittently bradycardic. Off lithium Plan pacemaker insertion today single-chamber device Resume lithium after device in place Anticoagulation risks as noted 12/29/2023 83-year-old female presented after a fall with change in mental status and significant persistent bradycardia arrhythmias Atrial fibrillation noted with slow ventricular response Underwent single-chamber pacemaker insertion yesterday without difficulty. No tachyarrhythmias with device functioning normal Okay to resume usual medications Pacemaker has not aided in mental status issues Admission and Anticipated Discharge Date Admission Date: December 24, 2023 Subjective Patient was seen and examined. Chart and telemetry reviewed Pacemaker functioning appropriately Patient more lethargic no cardiac etiology Review of Systems Review of Systems: Unobtainable due to cognitive status Physical Exam Constitutional: + obese; no acute distress Eyes: PERRL, conjunctivae normal, anicteric sclerae ENMT: external ear and nose normal, oropharynx normal Respiratory: Auscultation: + diminished lung sounds; no rales Cardiovascular: Rate/Rhythm: + irregularly irregular Vessels: no JVD Extremities: no edema Chest (Breasts): Chest: + pacemaker Gastrointestinal (Abdomen): normal bowel sounds, soft, nontender, no hepatosplenomegaly Results & Data Vital Signs (Past 12 Hours) Vital Signs Temp Pulse Pulse Resp BP Pulse Ox O2 Del Method 12/29/23 07:37 37.3 C 68 17 135/79 94 Room Air 12/29/23 04:04 37.2 C 73 18 108/76 93 Room Air 12/29/23 03:52 72 17 99 FiO2 12/29/23 07:37 12/29/23 04:04 12/29/23 03:52 21 Laboratory Results Laboratory Results - last 24 hr 12/29/23 07:06 WBC 7.40 RBC 4.39 Hgb 13.4 Hct 40.8 MCV 92.9 MCH 30.5 MCHC 32.8 RDW Std Deviation 47.8 H RDW Coeff of Atiya 14.0 Plt Count 258 MPV 10.5 Immature Gran % (Auto) 0.4 Neut % (Auto) 77.9 Lymph % (Auto) 9.1 [place] % (Auto) 8.0 Eos % (Auto) 4.3 Baso % (Auto) 0.3 Neut # (Auto) 5.77 Lymph # (Auto) 0.67 L [place] # (Auto) 0.59 Eos # (Auto) 0.32 Baso # (Auto) 0.02 Immature Gran # (Auto) 0.03 Sodium 137 Potassium 4.7 Chloride 103 Carbon Dioxide 28 Anion Gap 6 BUN 22 Creatinine 1.26 H Est Cr Clr Drug Dosing 27.3 Est GFR ( Amer) 45.6 Est GFR (Non-Af Amer) 39.4 BUN/Creatinine Ratio 17.5 Glucose 98 Calcium 10.1 Phosphorus 3.0 Magnesium 2.1
--- NOTE | 2023-12-29 14:05 | Hospitalist Progress Note ---
Date of Service December 29, 2023 Assessment & Plan (1) New onset a-fib: (2) CAD (coronary artery disease): (3) Depression: (4) HTN (hypertension): (5) HLD (hyperlipidemia): (6) Bipolar 2 disorder: Plan Ms. Clark is an 83 year old female that presents to the [facility] after experiencing a ground level fall that occurred today at [facility]. She has been in rate controlled atrial fibrillation since she has been here and does not have a history of atrial fibrillation. She has complaints of being generally weak and lethargic. Unsure if patient had lightheadedness or dizziness prior to her fall. Patient is not a great historian. I s/w daughter Bianca at [phone] who is out of state working and the last time she saw her during the last week of October 2023. Per daughter she has had issues in the past with her heart rate being low, but has never been diagnosed with atrial fibrillation. She has a PMH that includes CAD s/p stent placement x2 done at [facility] in [place] in 2007, CVA, Lewy Body dementia, HTN, hypothyroidism. Lengthy discussion held with patients daughter about benefits vs risks of being on anticoagulation and she has opted to continue with treatment with a Heparin infusion. Her CHADs VASc is a 7. At baseline, she is able to get dressed with assistance and is able to independently feed herself but requires all of her needs to be anticipated and met. Patient will be admitted for further evaluation and management of her new onset atrial fibrillation and fall/generalized weakness. We will obtain an ECHO, TSH, UA, Heparin gtt, Cards consultation, PT/OT and case management consult to assist with placement at SNF. New onset atrial fibrillation: weakness: Which could be secondary to lithium that she has been taking Appreciate cardiology input and recommendation Cheriton is on hold now and the lithium level has been normal Will talk to the daughter about lithium and will likely need to be psychiatric evaluation to give other medications in place of lithium Will continue to observe in telemetry unit for the need for pacemaker Has not been getting any beta blocking agents CHADs vasc 7 Has been on intravenous heparin now Clinically stable with heart rate around 50s Heart rate remains low even with holding lithium for the last few days Rate remains low and will have PPM placement today Will get PT OT evaluation with a possible discharge in a day or 2 Acute confusion with drowsiness Noted to be confused since this morning without any apparent distress Could be secondary to lithium withdrawal/medication induced during pacemaker implantation Will observe Bradycardia: History of chronic bradycardia Per daughter she has had bradycardia (50's) since her AMI in 2007. Appears pt was on Metoprolol at one point, but not on current med list ECHO ordered-Showed atrial fibrillation with slow ventricular rate, LVEF was 55 to 60%, mild concentric LVH, left atrium is severely dilated, mild aortic regurgitation, there is mild tricuspid regurgitation, and Doppler finding do not suggest pulmonary hypertension Appreciate cardiology input and recommendation The cause of bradycardia could be secondary to lithium Cheriton is on hold as above and psychiatric consultation was taken Seroquel has been increased to 300 mg to control bipolar Pacemaker implantation tomorrow and following that we can restart beta-jalen and also lithium Status post permanent pacemaker implantation on 12/28/2023 Pacemaker function is optimal as per the patient safety manager Will restart lithium at a dose of 150 mg daily Recurrent fall: History of recurrent falls as an outpatient-Recurrent falls could be secondary to cardiac arrhythmia Noted to have atrial fibrillation with slow heart rate May be the cause of her fall is a bradycardia/bradycardia arrhythmia CSCT and head CT negative Hip/Pelvis X-ray negative PT and OT evaluation Has had PT and OT evaluation and recommended PCF Bipolar Disorder: Chronic Takes Cheriton; continue check lithium levels Takes duloxetine;continue Appreciate psychiatrist input and recommendation following discontinuation of lithium Seroquel dose has been increased to 300 mg and sertraline has been discontinued Status post pacemaker implantation and lithium is started from today the dose of 150 mg daily Discussed with the psychiatrist LINCOLN: Acute serum creatinine 1.25; unsure of baseline fluid challenge and recheck BMP in AM Creatinine has been normalized CAD: Chronic AMI s/p stent placement x1 in 2007 at [facility] Not on any anticoagulation Takes baby ASA; continue Lewy Body Dementia: Chronic Takes Sinemet; continue Takes donepezil;continue Takes Seroquel; continue FAST score: up to and including all of 6 Some ing per daughter Do not give any Haldol for any acute mood stabilization as it can aggravate Lewy body dementia HTN: Chronic Takes losartan;continue HLD: Chronic Takes Hypothyroidism: Chronic Takes levothyroxine;continue TSH today in ED 2.482 OAB: Chronic Takes oxybutynin;cont Disposition: PCP: Dr. 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 Denies any significant symptoms Heart rate remains low at around 50s 12/27/2023 Patient was seen and examined in telemetry unit Her heart rate went down to below 40s yesterday during daytime and CPAP was applied Heart rate remains on the lower side and will have pacemaker tomorrow 12/28/2023 The patient was seen and examined in telemetry unit She was communicated through writing She will have permanent pacemaker placement today 12/29/2023 The patient was seen and examined in telemetry unit She is a little bit confused today Otherwise hemodynamically stable and does not have any acute distress at rest Meaningful communication was not possible today Review of Systems Review of Systems: all systems reviewed and are unremarkable except as noted below Physical Exam Physical Exam: Lying in bed without any acute distress Constitutional: well developed, well nourished, + ill appearing and + obese Eyes: PERRL, conjunctivae normal, anicteric sclerae ENMT: external ear and nose normal, oropharynx normal Neck: trachea midline, no thyromegaly Respiratory: no respiratory distress Auscultation: lungs clear to auscultation bilaterally Cardiovascular: Rate/Rhythm: regular rate, regular rhythm and + bradycardic Gastrointestinal (Abdomen): Inspection/Auscultation: normal bowel sounds; abdomen not distended Percussion/Palpation: abdomen soft; abdomen nontender Neurologic: normal touch/pain/proprioception and moves all extremities Lymphatic: no cervical or axillary lymphadenopathy Results & Data Results & Data Vital Signs (Past 12 Hours) Vital Signs Temp Pulse Pulse Resp BP Pulse Ox O2 Del Method 12/29/23 13:40 Room Air 12/29/23 12:08 37.1 C 75 18 140/65 91 Room Air 12/29/23 07:37 37.3 C 68 17 135/79 94 Room Air 12/29/23 04:04 37.2 C 73 18 108/76 93 Room Air 12/29/23 03:52 72 17 99 FiO2 12/29/23 13:40 12/29/23 12:08 12/29/23 07:37 12/29/23 04:04 12/29/23 03:52 21 Laboratory Results Short CBC 12/29/23 Range/Units 07:06 WBC 7.40 (4.8-10.8) K/ul Hgb 13.4 (12.0-16.0) g/dl Hct 40.8 (37.0-47.0) % Plt Count 258 (130-400) K/uL BMP 12/29/23 07:06 Sodium 137 Potassium 4.7 Chloride 103 Carbon Dioxide 28 BUN 22 Creatinine 1.26 H Glucose 98 Calcium 10.1 Medications Administered Current Inpatient Medications Acetaminophen (Acetaminophen 325 Mg Tab) 650 mg PO Q4H PRN PRN Reason: Pain or Fever Stop: 01/23/24 18:07 Al Hydrox/Mg Hydrox/Simethicone (Aluminum/Magnesium Susp 30 Ml Udc) 15 ml PO Q4H PRN PRN Reason: Dyspepsia Stop: 01/23/24 18:07 Albuterol (Albuterol Hfa 8 Gm Inhaler) 1 puffs INH Q6 PRN PRN Reason: Shortness Of Breath Or Wheezing Stop: 01/23/24 15:47 Last Admin: 12/27/23 20:08 Dose: 1 puffs Albuterol (Albut/Ipratrop 3mg/0.5mg Neb 3 Ml Vial) 3 ml NEB Q2H PRN; Protocol PRN Reason: sob wheeze Stop: 01/26/24 22:34 Amlodipine Besylate (Amlodipine Besylate 5 Mg Tab) 2.5 mg PO QAM [facility] Stop: 01/27/24 08:59 Last Admin: 12/29/23 07:54 Dose: 2.5 mg Aspirin (Aspirin 81 Mg Ectab) 81 mg PO QAM YULIANA Stop: 01/24/24 08:59 Last Admin: 12/29/23 07:53 Dose: 81 mg Atorvastatin Calcium (Atorvastatin 40 Mg Tab) 80 mg PO HS YULIANA Stop: 01/23/24 20:59 Last Admin: 12/28/23 20:14 Dose: 80 mg Atropine Sulfate (Atropine Sulfate 0.1 Mg/Ml 10ml Syr) 1 mg IV Q3M PRN PRN Reason: symptomatic bradycardia Stop: 01/24/24 03:12 Carbidopa/Levodopa (Carbidopa/Levodopa 25/100mg Tab) 1 tab PO TID YULIANA Stop: 01/23/24 20:59 Last Admin: 12/29/23 07:56 Dose: 1 tab Donepezil HCl (Donepezil Hcl 5 Mg Tab) 5 mg PO QAM YULIANA Stop: 01/24/24 08:59 Last Admin: 12/25/23 08:54 Dose: 5 mg Duloxetine HCl (Duloxetine Hcl 60 Mg Cap) 60 mg PO DAILY YULIANA Stop: 01/24/24 08:59 Last Admin: 12/29/23 07:56 Dose: 60 mg Famotidine (Famotidine 20 Mg Tab) 20 mg PO DAILY YULIANA Stop: 01/24/24 08:59 Last Admin: 12/29/23 12:20 Dose: 20 mg Ferrous Sulfate (Ferrous Sulfate 325 Mg Tab) 325 mg PO BIDM YULIANA Stop: 01/23/24 16:59 Last Admin: 12/29/23 07:51 Dose: 325 mg Gabapentin (Gabapentin 300 Mg Cap) 300 mg PO BID YULIANA Stop: 01/23/24 20:59 Last Admin: 12/29/23 07:51 Dose: 300 mg Levothyroxine Sodium (Levothyroxine Sodium 75 Mcg Tablet) 75 mcg PO DAILYBB [facility] Stop: 01/24/24 06:29 Last Admin: 12/29/23 05:42 Dose: 75 mcg Cheriton Carbonate (Cheriton Carbonate 300 Mg Tab) 300 mg PO DAILY YULIANA Stop: 01/28/24 08:59 Last Admin: 12/29/23 11:37 Dose: Not Given Cheriton Carbonate (Cheriton Carbonate 300 Mg Tab) 150 mg PO DAILY YULIANA Stop: 01/28/24 10:29 Last Admin: 12/29/23 12:20 Dose: 150 mg Losartan Potassium (Losartan Potassium 25 Mg Tab) 25 mg PO DAILY YULIANA Stop: 01/27/24 08:59 Last Admin: 12/29/23 07:52 Dose: 25 mg Magnesium Hydroxide (Magnesium Hydroxide Susp 30 Ml Udc) 30 ml PO Q12H PRN PRN Reason: Constipation Stop: 01/23/24 18:07 Last Admin: 12/29/23 05:42 Dose: 30 ml Meclizine HCl (Meclizine Hcl 25 Mg Tab) 25 mg PO TID PRN PRN Reason: Dizziness or Vertigo Stop: 01/23/24 18:14 Olanzapine (Olanzapine 10 Mg/2.1 Ml Sdv) 2.5 mg IM ONE PRN PRN Reason: Agitation. Stop: 01/25/24 13:36 Ondansetron HCl (Ondansetron Inj 2 Mg/Ml 2 Ml Vial) 4 mg IV Q6H PRN PRN Reason: Nausea Stop: 01/23/24 18:07 Last Admin: 12/26/23 13:53 Dose: 4 mg Oxybutynin Chloride (Oxybutynin Chloride 5 Mg Tab) 5 mg PO BID [facility] Stop: 01/23/24 20:59 Last Admin: 12/29/23 07:55 Dose: 5 mg Pantoprazole Sodium (Pantoprazole 40 Mg Tab) 40 mg PO QAM [facility] Stop: 01/24/24 08:59 Last Admin: 12/29/23 07:57 Dose: 40 mg Polyethylene Glycol (Polyethylene (Miralax) 17 Gm Pack) 17 gm PO DAILY PRN PRN Reason: Constipation Stop: 01/23/24 18:07 Last Admin: 12/27/23 09:07 Dose: 17 gm Quetiapine Fumarate (Quetiapine Fumarate 300 Mg Tablet) 300 mg PO HS [facility] Stop: 01/25/24 20:59 Last Admin: 12/28/23 20:13 Dose: 300 mg Ropinirole HCl (Ropinirole Hcl 0.25 Mg Tablet) 0.25 mg PO TID YULIANA Stop: 01/23/24 20:59 Last Admin: 12/29/23 07:53 Dose: 0.25 mg
[2023-12-29] MEDS: ALBUT/IPRATROP 3MG/0.5MG NEB 3 ML VIAL NEB PRN (20:43)
[2023-12-30] MEDS: ACETAMINOPHEN 325 MG TAB PO PRN (10:23)
--- NOTE | 2023-12-30 15:15 | Hospitalist Progress Note ---
Date of Service December 30, 2023 Assessment & Plan (1) Bradycardia: Plan: Single-lead pacemaker inserted on 12/28/2023 (2) New onset a-fib: (3) Atrial fibrillation with slow ventricular response: (4) Ground-level fall: (5) Lewy body dementia: (6) Bipolar disorder: (7) Parkinsons disease: (8) Hypothyroidism: Plan Patient status post pacemaker insertion, rates now controlled. Patient remains sleepy. Not lithium toxic Decrease Seroquel Continue therapies Case management pursuing placement options Okay to [facility] with pacemaker insertion. Admission and Anticipated Discharge Date Admission Date: December 24, 2023 Subjective Patient sleepy. Denied any acute issues. Nursing reports no new issues Physical Exam Physical Exam: Constitutional: Sleepy, hard of hearing HEENT: Mucous membranes moist. Lungs: Clear to auscultation, decreased, no wheezes rales or rhonchi CV: S1-S2, regular Abdomen: Soft, nontender, nondistended Extremities: No significant edema, left upper extremity in immobilizer Neuro: No focal deficits Psych: Cooperative, normal mood Results & Data Results & Data Vital Signs (Past 12 Hours) Vital Signs Temp Pulse Pulse Resp BP BP Pulse Ox 12/30/23 15:03 62 12/30/23 07:41 36.6 C 58 L 18 149/83 H 96 12/30/23 07:30 60 12/30/23 04:15 36.3 C L 60 20 144/67 H 94 O2 Del Method 12/30/23 15:03 12/30/23 07:41 Room Air 12/30/23 07:30 12/30/23 04:15 CPAP Laboratory Results [place] 0.3
[2023-12-30] MEDS: GABAPENTIN 100 MG CAP PO SCH (19:55)
[2023-12-30] MEDS: QUEtiapine FUMARATE 100 MG TABLET PO SCH (19:55)
[2023-12-31] MEDS: MINERAL OIL ENEMA 133 ML BTL PR STA (14:11)
--- NOTE | 2023-12-31 14:11 | Discharge Summary ---
Discharge Summary Date of Service December 31, 2023 Principal Dx & Hospital Course #1 = Principal Diagnosis (1) Bradycardia: Single-lead pacemaker inserted on 12/28/2023 (2) New onset a-fib: (3) Atrial fibrillation with slow ventricular response: (4) Ground-level fall: (5) Lewy body dementia: (6) Bipolar disorder: (7) Parkinsons disease: (8) Hypothyroidism: Plan Patient presented to the emergency room after a ground-level fall. She was brought to the emergency room for evaluation. In the emergency room noted to be in atrial fibrillation with slow ventricular response. She was not aware that she had ever had atrial fibrillation before. Patient was admitted to the hospital for further evaluation. Patient was admitted to the hospital. Cardiology consultation was obtained. Family was updated. Family reported they had been working on trying to get her group home placement with her diagnosis of Lewy body dementia and Parkinson's. Cardiology evaluated her. She was not on any rate limiting medications. She continued to be monitored. Patient also had some significant sedation and altered mental status. She is on multiple medications that can contribute to this. Psychiatry consultation was obtained. Dosages were adjusted of her medications and some of her medications were discontinued. Patient continued to have some bradycardia. Ultimately felt that she may benefit from a pacemaker insertion. Patient underwent pacemaker placement on 12/28/2023. Her postprocedure course was uneventful. As the patient's medical regimen and medications were decreased her mental status improved. She still has significant dementia but was more awake and interactive. Case management was in involved in her care. Extensive search for placement options. Patient's condition steadily improved throughout her hospitalization. [facility] accepted the patient for ongoing care and rehabilitation. She be discharged there with plans for outpatient follow-up. Notes For Next Care Provider Follow-up with cardiology, neurology and psychiatry Limited range of motion of left upper extremity with recent pacemaker insertion see discharge instructions Recommend physical therapy and Occupational Therapy Strongly recommend against using Haldol for behavior control as this may exacerbate Lewy body dementia Medication Changes From Visit [place] dose decreased Gabapentin dose decreased Aricept discontinued Seroquel dose reduced Admission HPI Per Admitting Provider Ms. Clark is an 83 year old female that presents to the [facility] after experiencing a ground level fall that occurred today at [facility]. She has been in atrial fibrillation since she has been here and does not have a history of atrial fibrillation. She has complaints of being generally weak and lethargic. Unsure if patient had lightheadedness or dizziness prior to her fall. Patient is not a great historian. I spoke with patients daughter on the phone; Bianca at [phone] who states that she is out of state working and the last time she saw her during the last week of October 2023. She has been at [facility] for several years. Area office of aging suggested SNF more recently but daughter has not had success in moving forward with placement. Per daughter she has had issues in the past with her heart rate being low, but has never been diagnosed with atrial fibrillation. She has a PMH that includes CAD s/p stent placement x2 done at [facility] in [place] in 2007, CVA, Lewy Body dementia, HTN, hypothyroidism. Discussed the patient risk factors of heart attack and stroke without being on blood thinning medications. Discussed risk of someone with dementia being on anticoagulation falling and having a bleed. Lengthy discussion held with patients daughter about benefits vs risks of being on anticoagulation and she has opted to continue with treatment with a Heparin infusion. Her CHADs VASc is a 7. At baseline, she is able to get dressed with assistance and is able to independently feed herself but requires all of her needs to be anticipated and met. Patient will be admitted for further evaluation and management of her new onset atrial fibrillation and fall/generalized weakness. We will obtain an ECHO, TSH, UA, Heparin gtt, Cards consultation, PT/OT and case management consult to assist with placement at SNF. Please see A/P for more details. Admission Exam Per Admitting Provider See H&P Discharge Exam Constitutional: Alert, much more interactive HEENT: Mucous membranes moist. Lungs: Clear to auscultation, decreased, no wheezes rales or rhonchi CV: S1-S2, regular Chest: Some bruising around pacemaker site, no significant hematoma, no evidence of cellulitis or infection minimal tenderness Abdomen: Soft, nontender, nondistended Extremities: No significant edema Neuro: Parkinsonian features Psych: Cooperative, impaired memory Updated Medication List Medication Instructions Recorded Confirmed Type Acetaminophen Tab (TYLENOL) 650 mg PO BID #0 tabs 09/10/15 12/24/23 History Calcium/Vitamin D (Os-Phil 500 Plus 1 tab PO QAM #0 tabs 09/10/15 12/24/23 History D) Esomeprazole Magnesium (Nexium) 40 mg PO QAM #0 caps 09/10/15 12/24/23 History MECLIZINE HCL 2 tab PO TID PRN Dizziness or 09/10/15 12/24/23 History Vertigo 10 days #60 tabs Nitroglycerin (Nitrostat) 0.4 mg UT PRN #0 BTLS 09/10/15 12/24/23 History Sertraline (Zoloft) 25 mg PO HS #0 tabs 09/10/15 12/24/23 History donepezil 5 mg tablet 5 mg PO QAM #0 tabs 09/10/15 12/24/23 History albuterol sulfate 90 mcg/actuation 1 puff inhalation DIRECTED PRN 12/24/23 12/24/23 History aerosol inhaler (Ventolin HFA) Other diclofenac sodium 1 % topical gel 1 ea topical DIRECTED 12/24/23 12/24/23 History duloxetine 60 mg capsule,delayed 60 mg PO DAILY 12/24/23 12/24/23 History release famotidine 20 mg tablet 20 mg PO DAILY 12/24/23 12/24/23 History gabapentin 300 mg capsule 300 mg PO DIRECTED 12/24/23 12/24/23 History lithium carbonate 300 mg 300 mg PO DAILY 12/24/23 12/24/23 History tablet,extended release quetiapine 200 mg tablet 200 mg PO DIRECTED 12/24/23 12/24/23 History ASPIRIN (ASPIRIN EC) 81 mg PO QAM #30 tabs 12/31/23 Rx Ferrous Sulfate 325 mg PO BIDM 30 days #60 tabs 12/31/23 Rx Ropinirole (Requip) 0.25 mg PO TID #90 tabs 12/31/23 Rx acetaminophen 325 mg tablet 650 mg (2 x 325 mg) PO Q4H PRN 12/31/23 Rx fever or pain #100 tabs amlodipine 5 mg tablet (Norvasc) 2.5 mg (1/2 x 5 mg) PO QAM #30 tabs 12/31/23 Rx atorvastatin 80 mg tablet 80 mg PO HS #30 tabs 12/31/23 Rx carbidopa 25 mg-levodopa 100 mg 1 tab PO TID #90 tabs 12/31/23 Rx tablet gabapentin 100 mg capsule 100 mg PO BID #60 caps 10/03/24 Rx ipratropium 0.5 mg-albuterol 3 mg 3 ml NEB Q4H PRN shortness of 12/31/23 Rx (2.5 mg base)/3 mL nebulization breath or wheezing #180 mL soln levothyroxine 75 mcg tablet 1 tab PO QAM 90 days #30 tabs 12/31/23 Rx lithium carbonate 300 mg tablet 150 mg (1/2 x 300 mg) PO DAILY #30 12/31/23 Rx tabs losartan 25 mg tablet 25 mg PO DAILY #30 tabs 12/31/23 Rx oxybutynin chloride 5 mg tablet 5 mg PO BID #60 tabs 12/31/23 Rx quetiapine 100 mg tablet 150 mg (1.5 x 100 mg) PO HS #30 12/31/23 Rx tabs Hospital Stay Data Consultations 12/24/23 15:16 ED Decision to Admit Stat 12/24/23 18:08 Consult Cardiology Routine 12/26/23 08:49 Consult Psychiatry Routine Procedures Performed Operation Date: 12/28/23 09:30 Actual Procedures p Pacer with Ventricular Lead - Abrahan Faulkner MD Diagnostic Imagining Performed 12/24/23 10:45 CT cervical spine wo con Stat CT head/brain wo con Stat 12/28/23 08:45 EP Lab Images for PACS ONCE Reviewed imaging, laboratory and diagnostic studies. Pertinent findings as below. Hemoglobin 13.4, WBC 7.0, platelets 258 Electrolytes within normal range Creatinine 1.26, improved [place] level 0.3 Echocardiogram shows ejection fraction of 55 to 60%, dilated left atrium, no evidence of pulmonary hypertension, I refer you to the full report for details Pending Results Patient Have Any Pending Studies at Discharge: No Discharge Instructions Given to Patient (Per Discharging Provider) Motion of left arm as noted above Physical therapy and Occupational Therapy Total Time Total Time Spent Total Time Spent (In Minutes): 40
== END 2023-12-31 15:47 | DRG 243 ==
LOC: ED 10:22 → 2S 15:19 → SUATTDRO 15:19 → 2S 17:19 → 3N 12-30 18:52